=== PATIENT | male | born 1960 | race Caucasian/White ===

== ENCOUNTER 2020-10-21 21:08 | Inpatient (IN) ==
[2020-10-21] MEDS ORDERED: dexAMETHasone**PF** 10 MG/ML VIAL IV ONE (21:43)
[2020-10-21] MEDS ORDERED: ALBUTEROL HFA 8 GM INHALER INH ONE (21:43)
[2020-10-21] MEDS ORDERED: SODIUM CHLORIDE 0.9% 1000ML 1,000 ML IV SCH (21:45)
[2020-10-21 22:00] LABS: Basophils # (auto) 0.01 K/uL (0-0.2); Basophils % (auto) 0.2 %; Eosinophils # (auto) 0.01 K/uL (0-0.5); Eosinophils % (auto) 0.2 %; Hematocrit (blood only) 45.5 % (42-52); Hemoglobin 16.3 g/dL (14.0-18.0); Lymphocytes # (auto) 0.58 K/uL (1.2-3.4); Lymphocytes % (auto) 9.5 %; Mean Corpuscular Hemoglobin 32.1 pg (25-34); Mean Corpuscular Hgb Conc 35.8 g/dL (32-36); Mean Corpuscular Volume 89.6 fL (80-100); Mean Platelet Volume 10.1 fL (7.4-10.4); Monocytes # (auto) 0.65 K/uL (0.11-0.59); Monocytes % (auto) 10.7 %; Neutrophils # (auto) 4.84 K/uL (1.4-6.5); Neutrophils % (auto) 79.4 %; Platelet Count 178 K/uL (130-400); RDW Coefficient of Variation 12.5 % (11.5-14.5); RDW Standard Deviation 41.4 fL (36.4-46.3); Red Blood Count 5.08 M/uL (4.7-6.1); White Blood Count 6.09 K/uL (4.8-10.8)
[2020-10-21 22:11] LABS: Alanine Aminotransferase 40 U/L (12-78); Albumin Level 3.2 gm/dl (3.4-5.0); Aspartate Aminotransferase 27 U/L (15-37); BUN Creatinine Ratio 15.5 (10-20); Blood Urea Nitrogen 13 mg/dl (7-18); Calcium 8.2 mg/dl (8.5-10.1); Carbon Dioxide 29 mmol/L (21-32); Chloride 98 mmol/L (98-107); Creatinine Clr Calc Pharmacy 95.3 ml/min; Est GFR (African American) 109.2; Est GFR (Non-African American) 94.3; Glucose 96 mg/dl (70-99); Magnesium 2.2 mg/dl (1.8-2.4); Potassium 3.8 mmol/L (3.5-5.1); Sodium 133 mmol/L (136-145)
[2020-10-21 22:12] LABS: INR 1.1 (0.9-1.1); Partial Thromboplastin Ratio 1.2; Partial Thromboplastin Time 30.8 Seconds (21.0-31.0); Prothrombin Time 10.7 Seconds (9.0-12.0)
[2020-10-21 22:16] LABS: Albumin Globulin Ratio 0.8 (0.9-2); Alkaline Phosphatase 79 U/L (45-117); Bilirubin,Total 0.7 mg/dl (0.2-1); Globulin 4.2 gm/dl (2.5-4.0); Total Protein 7.4 gm/dl (6.4-8.2); Troponin I < 0.015 ng/ml (0-0.045)
[2020-10-21 22:38] LABS: Appearance Urine Clear (Clear); Bacteria Urine Automated Negative (Negative); Bilirubin Urine Negative (Negative); Blood Urine Negative (Negative); Color Urine Dark Yellow; Glucose Urine UA Negative (Negative); Ketones Urine 1+ (Negative); Leukocyte Esterase Urine Negative (Negative); Nitrite Urine Negative (Negative); Protein Urine 1+ (Negative); RBC Urine Automated 0-4 /hpf (0-4); Specific Gravity Urine 1.021 (1.000-1.030); Urobilinogen Urine Positive (Negative)
[2020-10-21 22:38] LABS: Influenza A virus by PCR Negative (Neg); Influenza B virus by PCR Negative (Neg); RSV by PCR Negative (Neg)
[2020-10-21 22:43] LABS: SARS CoV2 RNA(COVID-19) InHosp POSITIVE (Negative)
--- NOTE | 2020-10-22 00:51 | Emergency Department Note ---
History of Present Illness General Chief complaint: Respiratory Problems Stated complaint: RESP. DIFFICULTY Time Seen by Provider: 10/21/20 21:23 History of Present Illness This 60 yo presents to the ER complaining of flulike illness with difficulty breathing who was exposed to Covid for the past 2 weeks Location: Generalized Quality: Hard to breathe Severity: Moderate Duration: Past few days Timing: Started 2 weeks ago Context: Patient had a hard time breathing and came in Modifying factors: better with rest; worse with activity Patient states he has not been to a doctor since he was 35 years old. No known medical problems. He has not received the Covid vaccine. His spouse does have Covid. He has been sick for 2 weeks. Patient denies chest pain, loss of taste or smell, abdominal pain, vomiting, diarrhea. Home Medications Medication Instructions Recorded Confirmed Type [id number] 1 tab PO DIRECTED PRN 10/21/20 10/21/20 History [Pamela-Firth Plus Day-Night] acetaminophen [Tylenol Extra 1,000 mg PO Q6H PRN 10/21/20 10/21/20 History Strength] chlorpheniramine-acetaminophen 1 tab PO Q6H PRN 10/21/20 10/21/20 History [Coricidin] Allergies Allergy/AdvReac Type Severity Reaction Status Date / Time No Known Allergies Allergy Verified 10/21/20 22:21 Past Med/Surg History Medical History No acute medical problems Surgical History No pertinent past surgical history Social History Smoking Status: Never smoker Preferred Language: Bangladeshi Feels Safe at Home: Yes Review of Systems A total of 10 systems reviewed and were otherwise negative Physical Exam Vital Signs Vital Signs - 24 hr 10/21/20 21:15 10/21/20 21:16 10/21/20 21:18 Temperature 37.3 C Temperature Source Oral Pulse Rate 78 7 L 78 Pulse Rate from SpO2 Sensor 77 79 Pulse Rhythm Regular Respiratory Rate 22 20 24 Respiratory Effort / Characteristics Non-Labored Respiratory Depth Normal Blood Pressure 140/84 140/84 Blood Pressure Mean 102 102 Blood Pressure Position Lying Pulse Oximetry 92 92 93 Oxygen Delivery Method Nasal Cannula Room Air Nasal Cannula Oxygen Flow Rate 3 3 Sepsis Recent Fever Within 48 Hours Yes Sepsis New/Unexplained Change in Mental Status N/A Sepsis Action Taken by Nursing No Action Required Oxygen Flow Rate - Titration Pulse Oximetry Post Tiitration 10/21/20 21:30 10/21/20 21:31 10/21/20 21:49 Temperature Temperature Source Pulse Rate 75 71 Pulse Rate from SpO2 Sensor 75 72 Pulse Rhythm Respiratory Rate 22 22 Respiratory Effort / Characteristics Spontaneous Respiratory Depth Blood Pressure 140/83 Blood Pressure Mean 102 Blood Pressure Position Pulse Oximetry 91 92 Oxygen Delivery Method Nasal Cannula Nasal Cannula Room Air Oxygen Flow Rate 3 3 88 Sepsis Recent Fever Within 48 Hours Sepsis New/Unexplained Change in Mental Status Sepsis Action Taken by Nursing Oxygen Flow Rate - Titration 3 Pulse Oximetry Post Tiitration 95 10/21/20 21:54 10/21/20 22:00 10/21/20 22:01 Temperature Temperature Source Pulse Rate 76 72 Pulse Rate from SpO2 Sensor 76 72 Pulse Rhythm Respiratory Rate 20 20 Respiratory Effort / Characteristics Non-Labored Spontaneous Respiratory Depth Blood Pressure 136/39 L Blood Pressure Mean 71 Blood Pressure Position Pulse Oximetry 93 94 94 Oxygen Delivery Method Nasal Cannula Nasal Cannula Nasal Cannula Oxygen Flow Rate 3 3 3 Sepsis Recent Fever Within 48 Hours Sepsis New/Unexplained Change in Mental Status Sepsis Action Taken by Nursing Oxygen Flow Rate - Titration Pulse Oximetry Post Tiitration 10/21/20 22:30 10/21/20 22:31 10/21/20 22:41 Temperature Temperature Source Pulse Rate 71 70 70 Pulse Rate from SpO2 Sensor 71 70 Pulse Rhythm Regular Respiratory Rate 32 H 33 H 20 Respiratory Effort / Characteristics Non-Labored Spontaneous Respiratory Depth Blood Pressure 129/79 Blood Pressure Mean 95 Blood Pressure Position Pulse Oximetry 96 97 96 Oxygen Delivery Method Nasal Cannula Oxygen Flow Rate 3 Sepsis Recent Fever Within 48 Hours Sepsis New/Unexplained Change in Mental Status Sepsis Action Taken by Nursing Oxygen Flow Rate - Titration Pulse Oximetry Post Tiitration 10/21/20 23:02 10/21/20 23:30 Temperature Temperature Source Pulse Rate 76 71 Pulse Rate from SpO2 Sensor 76 71 Pulse Rhythm Respiratory Rate 28 H 24 Respiratory Effort / Characteristics Respiratory Depth Blood Pressure 142/81 H 124/61 Blood Pressure Mean 101 82 Blood Pressure Position Pulse Oximetry 98 93 Oxygen Delivery Method Nasal Cannula Nasal Cannula Oxygen Flow Rate 3 Sepsis Recent Fever Within 48 Hours Sepsis New/Unexplained Change in Mental Status Sepsis Action Taken by Nursing Oxygen Flow Rate - Titration Pulse Oximetry Post Tiitration VITALS: Vitals are noted on the nurse's note and reviewed by myself. Vital signs stable. GENERAL: White male working to breathe ill-appearing O2 sats in the mid 80s while speaking to me on room air SKIN: The skin was without rashes, erythema, edema, or bruising. There is no tenting of the skin. Capillary reflex less than 2 seconds. HEAD: Normocephalic atraumatic. EARS: External auditory canals clear, tympanic membranes pearly murphy without erythema or effusion bilaterally. EYES: Pupils equal round and reactive to light and accommodation. Conjunctivae without injection, sclerae without icterus. Extraocular movements intact. NOSE: Patent, turbinates without inflammation or discharge. No sinus tenderness. MOUTH: Mucous membranes moist. Pharynx without erythema or exudate. Uvula midline. Airway patent. Tongue does not deviate. NECK: Supple without nuchal rigidity. No lymphadenopathy. No thyromegaly. Cervical spine is nontender. No JVD. HEART: Regular rate and rhythm LUNGS: Diffuse inspiratory and end expiratory wheezes. ABDOMEN: Positive bowel sounds x 4. Normal tympanic percussion. Soft, nontender, without masses or organomegaly. Anthony sign negative. No guarding or rebound tenderness. No CVA tenderness MUSCULOSKELETAL: No muscle atrophy, erythema, or edema noted. NEURO: Patient was alert and oriented to person place and time. Normal sensation to light and sharp touch. No focal neurological deficits. Course Administered Medications Discontinued Medications Albuterol (Albuterol Hfa 8 Gm Inhaler) 2 puffs INH NOW ONE Stop: 10/21/20 21:44 Last Admin: 10/21/20 22:09 Dose: 2 puffs Documented by: [id number] Dexamethasone Sodium Phosphate (DexamethasonePf 10 Mg/Ml Vial) 6 mg IV NOW ONE Stop: 10/21/20 21:44 Last Admin: 10/21/20 22:08 Dose: 6 mg Documented by: [id number] Sodium Chloride (Nss 1000ml) 1,000 mls @ 999 mls/hr IV .Q1H1M JESUS Stop: 10/21/20 22:45 Last Infusion: 10/21/20 23:31 Dose: 0 mls/hr Documented by: [id number] Admin: 10/21/20 22:10 Dose: 999 mls/hr Documented by: [id number] Medical Decision Making Medical Records Attestation: I reviewed the patient's medical records. Home Medications Current Medication List: was personally reviewed by me Laboratory Data Attestation: I reviewed the patient's lab results. Result diagrams: 10/21/20 21:25 10/21/20 21:25 Lab Results 10/21/20 10/21/20 10/21/20 Range/Units 21:25 21:25 21:25 WBC 6.09 (4.8-10.8) K/uL RBC 5.08 (4.7-6.1) M/uL Hgb 16.3 (14.0-18.0) g/dL Hct 45.5 (42-52) % MCV 89.6 (80-100) fL MCH 32.1 (25-34) pg MCHC 35.8 (32-36) g/dL RDW Std Deviation 41.4 (36.4-46.3) fL RDW Coeff of [place] 12.5 (11.5-14.5) % Plt Count 178 (130-400) K/uL MPV 10.1 (7.4-10.4) fL Immature Gran % (Auto) 0.0 % Neut % (Auto) 79.4 % Lymph % (Auto) 9.5 % [place] % (Auto) 10.7 % Eos % (Auto) 0.2 % Baso % (Auto) 0.2 % Neut # (Auto) 4.84 (1.4-6.5) K/uL Lymph # (Auto) 0.58 L (1.2-3.4) K/uL [place] # (Auto) 0.65 H (0.11-0.59) K/uL Eos # (Auto) 0.01 (0-0.5) K/uL Baso # (Auto) 0.01 (0-0.2) K/uL Immature Gran # (Auto) 0.00 (0.00-0.02) K/uL PT 10.7 (9.0-12.0) Seconds INR 1.1 (0.9-1.1) APTT 30.8 (21.0-31.0) Seconds PTT Ratio 1.2 Sodium 133 L (136-145) mmol/L Potassium 3.8 (3.5-5.1) mmol/L Chloride 98 (98-107) mmol/L Carbon Dioxide 29 (21-32) mmol/L Anion Gap 7.0 (3-11) BUN 13 (7-18) mg/dl Creatinine 0.86 (0.6-1.4) mg/dl Est Cr Clr Drug Dosing 95.3 ml/min Est GFR ( Amer) 109.2 Est GFR (Non-Af Amer) 94.3 BUN/Creatinine Ratio 15.5 (10-20) Glucose 96 (70-99) mg/dl Lactate (0.4-2.0) mmol/L Calcium 8.2 L (8.5-10.1) mg/dl Magnesium 2.2 (1.8-2.4) mg/dl Total Bilirubin 0.7 (0.2-1) mg/dl AST 27 (15-37) U/L ALT 40 (12-78) U/L Alkaline Phosphatase 79 (45-117) U/L Troponin I < 0.015 (0-0.045) ng/ml Total Protein 7.4 (6.4-8.2) gm/dl Albumin 3.2 L (3.4-5.0) gm/dl Globulin 4.2 H (2.5-4.0) gm/dl Albumin/Globulin Ratio 0.8 L (0.9-2) Urine Color Urine Appearance (Clear) Urine pH (4.5-7.5) Ur Specific [place] (1.000-1.030) Urine Protein (Negative) Urine Glucose (UA) (Negative) Urine Ketones (Negative) Urine Blood (Negative) Urine Nitrite (Negative) Urine Bilirubin (Negative) Urine Urobilinogen (Negative) Ur Leukocyte Esterase (Negative) Urine WBC (Auto) (0-5) /hpf Urine RBC (Auto) (0-4) /hpf U Hyaline Cast (Auto) (0-5) /lpf U Epithel Cells (Auto) (0-5) /lpf Urine Bacteria (Auto) (Negative) COVID-19 Eval Order SARS-CoV-2 (PCR) (Negative) Influenza Type A (PCR) (Neg) Influenza Type B (PCR) (Neg) RSV (RT-PCR) (Neg) 10/21/20 10/21/20 10/21/20 Range/Units 21:25 21:25 22:25 WBC (4.8-10.8) K/uL RBC (4.7-6.1) M/uL Hgb (14.0-18.0) g/dL Hct (42-52) % MCV (80-100) fL MCH (25-34) pg MCHC (32-36) g/dL RDW Std Deviation (36.4-46.3) fL RDW Coeff of [place] (11.5-14.5) % Plt Count (130-400) K/uL MPV (7.4-10.4) fL Immature Gran % (Auto) % Neut % (Auto) % Lymph % (Auto) % [place] % (Auto) % Eos % (Auto) % Baso % (Auto) % Neut # (Auto) (1.4-6.5) K/uL Lymph # (Auto) (1.2-3.4) K/uL [place] # (Auto) (0.11-0.59) K/uL Eos # (Auto) (0-0.5) K/uL Baso # (Auto) (0-0.2) K/uL Immature Gran # (Auto) (0.00-0.02) K/uL PT (9.0-12.0) Seconds INR (0.9-1.1) APTT (21.0-31.0) Seconds PTT Ratio Sodium (136-145) mmol/L Potassium (3.5-5.1) mmol/L Chloride (98-107) mmol/L Carbon Dioxide (21-32) mmol/L Anion Gap (3-11) BUN (7-18) mg/dl Creatinine (0.6-1.4) mg/dl Est Cr Clr Drug Dosing ml/min Est GFR ( Amer) Est GFR (Non-Af Amer) BUN/Creatinine Ratio (10-20) Glucose (70-99) mg/dl Lactate (0.4-2.0) mmol/L Calcium (8.5-10.1) mg/dl Magnesium (1.8-2.4) mg/dl Total Bilirubin (0.2-1) mg/dl AST (15-37) U/L ALT (12-78) U/L Alkaline Phosphatase (45-117) U/L Troponin I (0-0.045) ng/ml Total Protein (6.4-8.2) gm/dl Albumin (3.4-5.0) gm/dl Globulin (2.5-4.0) gm/dl Albumin/Globulin Ratio (0.9-2) Urine Color Dark Yellow Urine Appearance Clear (Clear) Urine pH 7.0 (4.5-7.5) Ur Specific [place] 1.021 (1.000-1.030) Urine Protein 1+ H (Negative) Urine Glucose (UA) Negative (Negative) Urine Ketones 1+ H (Negative) Urine Blood Negative (Negative) Urine Nitrite Negative (Negative) Urine Bilirubin Negative (Negative) Urine Urobilinogen Positive H (Negative) Ur Leukocyte Esterase Negative (Negative) Urine WBC (Auto) 1-5 (0-5) /hpf Urine RBC (Auto) 0-4 (0-4) /hpf U Hyaline Cast (Auto) 1-5 (0-5) /lpf U Epithel Cells (Auto) 10-20 H (0-5) /lpf Urine Bacteria (Auto) Negative (Negative) COVID-19 Eval Order [facility]Rsv at [facility] SARS-CoV-2 (PCR) POSITIVE A* (Negative) Influenza Type A (PCR) Negative (Neg) Influenza Type B (PCR) Negative (Neg) RSV (RT-PCR) Negative (Neg) 10/21/20 Range/Units 22:50 WBC (4.8-10.8) K/uL RBC (4.7-6.1) M/uL Hgb (14.0-18.0) g/dL Hct (42-52) % MCV (80-100) fL MCH (25-34) pg MCHC (32-36) g/dL RDW Std Deviation (36.4-46.3) fL RDW Coeff of [place] (11.5-14.5) % Plt Count (130-400) K/uL MPV (7.4-10.4) fL Immature Gran % (Auto) % Neut % (Auto) % Lymph % (Auto) % [place] % (Auto) % Eos % (Auto) % Baso % (Auto) % Neut # (Auto) (1.4-6.5) K/uL Lymph # (Auto) (1.2-3.4) K/uL [place] # (Auto) (0.11-0.59) K/uL Eos # (Auto) (0-0.5) K/uL Baso # (Auto) (0-0.2) K/uL Immature Gran # (Auto) (0.00-0.02) K/uL PT (9.0-12.0) Seconds INR (0.9-1.1) APTT (21.0-31.0) Seconds PTT Ratio Sodium (136-145) mmol/L Potassium (3.5-5.1) mmol/L Chloride (98-107) mmol/L Carbon Dioxide (21-32) mmol/L Anion Gap (3-11) BUN (7-18) mg/dl Creatinine (0.6-1.4) mg/dl Est Cr Clr Drug Dosing ml/min Est GFR ( Amer) Est GFR (Non-Af Amer) BUN/Creatinine Ratio (10-20) Glucose (70-99) mg/dl Lactate 1.0 (0.4-2.0) mmol/L Calcium (8.5-10.1) mg/dl Magnesium (1.8-2.4) mg/dl Total Bilirubin (0.2-1) mg/dl AST (15-37) U/L ALT (12-78) U/L Alkaline Phosphatase (45-117) U/L Troponin I (0-0.045) ng/ml Total Protein (6.4-8.2) gm/dl Albumin (3.4-5.0) gm/dl Globulin (2.5-4.0) gm/dl Albumin/Globulin Ratio (0.9-2) Urine Color Urine Appearance (Clear) Urine pH (4.5-7.5) Ur Specific [place] (1.000-1.030) Urine Protein (Negative) Urine Glucose (UA) (Negative) Urine Ketones (Negative) Urine Blood (Negative) Urine Nitrite (Negative) Urine Bilirubin (Negative) Urine Urobilinogen (Negative) Ur Leukocyte Esterase (Negative) Urine WBC (Auto) (0-5) /hpf Urine RBC (Auto) (0-4) /hpf U Hyaline Cast (Auto) (0-5) /lpf U Epithel Cells (Auto) (0-5) /lpf Urine Bacteria (Auto) (Negative) COVID-19 Eval Order SARS-CoV-2 (PCR) (Negative) Influenza Type A (PCR) (Neg) Influenza Type B (PCR) (Neg) RSV (RT-PCR) (Neg) Imaging Data Attestation: I personally reviewed and interpreted this imaging study as follows: MDM Narrative Prior records/ancillary studies reviewed. Triage Nursing notes reviewed. Additional history obtained from family. The patient's history was concerning for fever. Differential diagnosis: Etiologies such as viral syndrome, otitis, pharyngitis, pneumonia, influenza, meningitis, urinary tract infection, sepsis, bacteremia, as well as others were entertained. Physical examination: As above ER treatment provided: An order was placed for continuous cardiac monitoring. The monitor shows a rate of 60-100 with a sinus rhythm. Decadron, albuterol, IV fluids On reassessment the patient felt better. Diagnostics interpreted by me: ECG: Ordered for dyspnea EKG: Normal sinus, normal levels, no acute ST-T wave changes. Impression normal sinus rhythm interpreted by myself I think arrhythmia is unlikely. EKG shows normal sinus rhythm with no interval abnormalities such as QT prolongation or WPW. There are no findings to suggest Brugada syndrome. Cardiac monitoring in the emergency department reveals no tac hycardic or bradycardic dysrhythmia. Hypertrophic cardiomyopathy was considered but there are no clear historical elements pointing toward this. EKG is not suggestive. The QRS voltage is not extremely large and there are no suggestive Q waves. The labs revealed positive Covid, blood cultures pending No leukocytosis Imaging studies: Chest x-ray concerning for multifocal pneumonia per my interpretation Consultation: A consultation was placed with Dr. Bowers. The case was discussed and diagnostics were reviewed. The patient was evaluated in the ER for further treatment. This appears to be consistent with Covid pneumonia who is hypoxic. Patient was placed on oxygen and O2 sats came up. He is agreeable treatment plan of admission. He was started on Decadron. He is 2 weeks into his illness.. By the evaluation outlined above emergent etiologies such as otitis, pharyngitis, meningitis, urinary tract infection, sepsis, bacteremia, as well as others were deemed relatively unlikely. The pt informed about the findings as listed above. All questions were answered and pleased with the treatment. The chart was completed utilizing [email or web address] voice recognition software. Grammatical errors, random word insertions, pronoun errors, and incomplete sentences are an occassional consequence of this system due to software limitations, ambient noise, and hardware issues. Any formal questions or concerns about the content, text, or information contained within the body of this dictation should be directly addressed to the physician it assistant for clarification. Impression & Plan COVID-19, Hypoxemia Discharge Plan Visit Data Chief Complaint: Respiratory Problems Stated Complaint: RESP. DIFFICULTY ED Provider: Pradeep Lr ED Midlevel Provider: Yue Lofton Discharge Problem: COVID-19, Hypoxemia Patient Disposition: Admitted As Inpatient Forms Stand Alone Forms: [facility] Prescriptions Prescriptions: No Action acetaminophen [Tylenol Extra Strength] 500 mg Tablet 1,000 mg PO Q6H PRN (Reason: FEVER/PAIN) RF: 0 Coricidin 2-325 mg Tablet 1 tab PO Q6H PRN (Reason: Cold Symptoms) RF: 0 Pamela-Firth Plus Day-Night 7.8-325 mg(d)/ 6.25-500 mg(nt) Tablet,Effervescent Sequential 1 tab PO DIRECTED PRN (Reason: Cold Symptoms) RF: 0 Referrals Referrals: PCP,NO [Primary Care Provider] -
[2020-10-22] MEDS ORDERED: ENOXAPARIN INJ 60 MG/0.6 ML SYR SQ STA (01:22)
--- NOTE | 2020-10-22 02:40 | History & Physical Report ---
Date of Service October 22, 2020 Assessment & Plan (1) Pneumonia due to COVID-19 virus: Multifocal pneumonia due to COVID-19 virus with hypoxia- Decadron 6 mg IV every morning Ventolin HFA 2 puffs 4 times daily, and every 2 hours as needed Zinc sulfate 220 mg p.o. every morning Vitamin D 5000 international units p.o. daily Azithromycin 500 mg IV daily Guaifenesin extended release 600 mg p.o. twice daily Nasal cannula oxygen, titrate to keep pulse ox 94 to 95% Lovenox 0.5 mg kilogram subcu every [address] angio PE protocol due to initial presentation of severe left lower back pain Present on Admission?: Yes (2) Multifocal pneumonia: See above Present on Admission?: Yes (3) Hypoxemia: See above Present on Admission?: Yes History of Present Illness Chief Complaint: The patient presents to the emergency department with symptoms that began 5 days ago consisting of left-sided lower back pain, and then progressed to a cough and shortness of breath that began about 3 days ago. Primary Care Provider: NO PCP The patient is a 60-year-old male with no significant past medical history who presents with symptoms as noted above. He reports that his daughter came to his house earlier this evening, checked his vital signs and found that his pulse ox was in the 80s, and had him come to the emergency department for assessment. He does have a history of exposure to a family member with Covid about a week ago, and COVID-19 testing in the ED this evening was positive. Chest x-ray showed multifocal pneumonia, and pulse ox upon presentation was 88% on room air. The patient was given Decadron PF 6 mg IV, normal saline 1 L, and an albuterol high flow nebulizer by the ED, and then referred for evaluation for admission to the hospitalist service. Due to his initial symptoms of left lower back pain, I ordered a CT angio PE protocol. Allergies Allergy/AdvReac Type Severity Reaction Status Date / Time No Known Allergies Allergy Verified 10/21/20 22:21 Home Medications Medication Instructions Recorded Confirmed Type PE-DM-ASA/izqwtu-AV-GL-ASA 1 tab PO DIRECTED PRN 10/21/20 10/21/20 History [Pamela-[place] Plus Day-Night] acetaminophen [Tylenol Extra 1,000 mg PO Q6H PRN 10/21/20 10/21/20 History Strength] chlorpheniramine-acetaminophen 1 tab PO Q6H PRN 10/21/20 10/21/20 History [Coricidin] Past Med/Surg History Medical History No acute medical problems Surgical History No pertinent past surgical history Social History Smoking Status: Never smoker Preferred Language: Armenian Feels Safe at Home: Yes Review of Systems Review of Systems: The patient denies chest pain, palpitations, lower extremity swelling, sore throat, fevers, chills, sweats, nausea, vomiting, diarrhea , constipation, abdominal pain, pelvic pain, blood in urine or stool, dysuria, urinary frequency or urgency, lightheadedness, dizziness, headache, memory loss, loss of consciousness, rash, abnormal bruising or bleeding, imbalance, focal or generalized weakness, numbness or tingling in arms or legs, generalized arthralgias or myalgias, neck pain, or night sweats. The review of systems is otherwise negative other than for that already noted above, and at least 10 systems have been reviewed. Physical Exam Physical Exam: The patient is awake, alert and oriented 3, well developed and well nourished, normocephalic and atraumatic, lying in bed and in no acute distress. HEENT--PERRL, EOMI, mucous membranes and oropharynx normal. Neck--supple. No JVD. No bruits. Thyroid normal, trachea midline, no adenopathy. Heart--normal S1 and S2. No murmurs, rubs or gallops. Lungs--coarse breath sounds bilaterally. No respiratory distress, no accessory muscle use. Abdomen--normal bowel sounds and soft. Nontender. Nondistended, no hernias or masses, no organomegaly. Extremities--no cyanosis or clubbing. No edema. Dermatologic--normal skin turgor, normal color, no abnormal lymph nodes, no rash. Neurologic--cranial nerves II through XII grossly intact. Rheumatologic--normal range of motion. Psychiatric--normal affect. Results & Data Results & Data ([facility]) Vital Signs (Past 12 Hours) Vital Signs Temp Pulse Resp BP Pulse Ox 10/22/20 01:58 72 30 H 117/76 92 10/22/20 01:38 68 30 H 129/79 93 10/22/20 01:00 73 32 H 110/63 93 10/22/20 00:30 70 35 H 129/73 91 10/22/20 00:00 70 36 H 128/68 92 10/21/20 23:30 71 24 124/61 93 10/21/20 23:02 76 28 H 142/81 H 98 10/21/20 22:41 70 20 96 10/21/20 22:31 70 33 H 97 10/21/20 22:30 71 32 H 129/79 96 10/21/20 22:01 72 20 136/39 L 94 10/21/20 22:00 76 20 94 10/21/20 21:54 93 10/21/20 21:31 71 22 140/83 92 10/21/20 21:30 75 22 91 10/21/20 21:18 78 24 93 10/21/20 21:16 99.1 F 7 L 20 140/84 92 10/21/20 21:15 78 22 140/84 92 Laboratory Results Laboratory Results WBC 6.09 K/uL (4.8-10.8) 10/21/20 21:25 RBC 5.08 M/uL (4.7-6.1) 10/21/20 21:25 Hgb 16.3 g/dL (14.0-18.0) 10/21/20 21:25 Hct 45.5 % (42-52) 10/21/20 21:25 MCV 89.6 fL (80-100) 10/21/20 21:25 MCH 32.1 pg (25-34) 10/21/20 21:25 MCHC 35.8 g/dL (32-36) 10/21/20 21:25 RDW Std Deviation 41.4 fL (36.4-46.3) 10/21/20 21:25 RDW Coeff of [place] 12.5 % (11.5-14.5) 10/21/20 21:25 Plt Count 178 K/uL (130-400) 10/21/20 21:25 MPV 10.1 fL (7.4-10.4) 10/21/20 21:25 Immature Gran % (Auto) 0.0 % 10/21/20: Neut % (Auto) 79.4 % 10/21/20: Lymph % (Auto) 9.5 % 10/21/20: [place] % (Auto) 10.7 % 10/21/20: Eos % (Auto) 0.2 % 10/21/20: Baso % (Auto) 0.2 % 10/21/20: Neut # (Auto) 4.84 K/uL (1.4-6.5) 10/21/20: Lymph # (Auto) 0.58 K/uL (1.2-3.4) L 10/21/20: [place] # (Auto) 0.65 K/uL (0.11-0.59) H 10/21/20: Eos # (Auto) 0.01 K/uL (0-0.5) 10/21/20: Baso # (Auto) 0.01 K/uL (0-0.2) 10/21/20: Immature Gran # (Auto) 0.00 K/uL (0.00-0.02) 10/21/20: PT 10.7 Seconds (9.0-12.0) 10/21/20:25 INR 1.1 (0.9-1.1) 10/21/20: APTT 30.8 Seconds (21.0-31.0) 10/21/20: PTT Ratio 1.2 10/21/20 21: Sodium 133 mmol/L (136-145) L 10/21/20:25 Potassium 3.8 mmol/L (3.5-5.1) 10/21/20: Chloride 98 mmol/L (98-107) 10/21/20: Carbon Dioxide 29 mmol/L (21-32) 10/21/20 21:25 Anion Gap 7.0 (3-11) 10/21/20 21:25 BUN 13 mg/dl (7-18) 10/21/20: Creatinine 0.86 mg/dl (0.6-1.4) 10/21/20 21:25 Est Cr Clr Drug Dosing 95.3 ml/min 10/21/20 21:25 Est GFR ( Amer) 109.2 10/21/20 21:25 Est GFR (Non-Af Amer) 94.3 10/21/20 21:25 BUN/Creatinine Ratio 15.5 (10-20) 10/21/20 21: Glucose 96 mg/dl (70-99) 10/21/20 21: Lactate 1.0 mmol/L (0.4-2.0) 10/21/20 22:50 Calcium 8.2 mg/dl (8.5-10.1) L 10/21/20: Magnesium 2.2 mg/dl (1.8-2.4) 10/21/20: Total Bilirubin 0.7 mg/dl (0.2-1) 10/21/20:25 AST 27 U/L (15-37) 10/21/20: ALT 40 U/L (12-78) 10/21/20: Alkaline Phosphatase 79 U/L (45-117) 10/21/20: Troponin I < 0.015 ng/ml (0-0.045) 10/21/20: Total Protein 7.4 gm/dl (6.4-8.2) 10/21/20: Albumin 3.2 gm/dl (3.4-5.0) L 10/21/20: Globulin 4.2 gm/dl (2.5-4.0) H 10/21/20 21:25 Albumin/Globulin Ratio 0.8 (0.9-2) L 10/21/20 21:25 Urine Color Dark Yellow 10/21/20 22:25 Urine Appearance Clear (Clear) 10/21/20 22: Urine pH 7.0 (4.5-7.5) 10/21/20: Ur Specific [place] 1.021 (1.000-1.030) 10/21/20 22: Urine Protein 1+ (Negative) H 10/21/20 22:25 Urine Glucose (UA) Negative (Negative) 10/21/20: Urine Ketones 1+ (Negative) H 10/21/20 22: Urine Blood Negative (Negative) 10/21/20 22:25 Urine Nitrite Negative (Negative) 10/21/20 22:25 Urine Bilirubin Negative (Negative) 10/21/20 22:25 Urine Urobilinogen Positive (Negative) H 10/21/20 22:25 Ur Leukocyte Esterase Negative (Negative) 10/21/20 22:25 Urine WBC (Auto) 1-5 /hpf (0-5) 10/21/20 22:25 Urine RBC (Auto) 0-4 /hpf (0-4) 10/21/20 22:25 U Hyaline Cast (Auto) 1-5 /lpf (0-5) 10/21/20 22:25 U Epithel Cells (Auto) 10-20 /lpf (0-5) H 10/21/20 22:25 Urine Bacteria (Auto) Negative (Negative) 10/21/20 22:25 COVID-19 Eval Order [facility] at [facility] 10/21/20 21:25 SARS-CoV-2 (PCR) POSITIVE (Negative) A* 10/21/20 21:25 Influenza Type A (PCR) Negative (Neg) 10/21/20 21:25 Influenza Type B (PCR) Negative (Neg) 10/21/20 21:25 RSV (RT-PCR) Negative (Neg) 10/21/20 21:25 Code Status & VTE Plan Code Status Full code VTE Prophylaxis Plan VTE Prophylaxis will be ordered: Yes PG Care Time/CCT Total # of Minutes Spent Total Time Spent with Patient: Total time spent is greater than 50% in coordination of care (as documented) at patient's floor/unit and/or counseling p atient: Coding Level of Care Code 93130 Initial Inpt Care Lvl 2 Diagnoses Pneumonia due to COVID-19 virus U07.1; J12.82 Multifocal pneumonia J18.9 Hypoxemia R09.02
[2020-10-22] MEDS ORDERED: OPTIRAY 320 125ml IV ONE (02:50)
[2020-10-22] MEDS ORDERED: ONDANSETRON INJ 2 MG/ML 2 ML VIAL IV PRN (03:02)
[2020-10-22] MEDS ORDERED: ACETAMINOPHEN 325 MG TAB PO PRN (03:02)
[2020-10-22] MEDS ORDERED: ALBUTEROL HFA 8 GM INHALER INH PRN (03:06)
[2020-10-22] MEDS ORDERED: NSS + 20MEQ KCL 20 MEQ/1,000 ML BAG IV SCH (03:30)
[2020-10-22] MEDS: AZITHROMYCIN 500 MG in DEXTROSE 5% 250 ML IV SCH (03:50)
[2020-10-22] MEDS ORDERED: ALBUTEROL HFA 8 GM INHALER INH SCH (07:00)
[2020-10-22 07:54] LABS: Immature Granulocytes # (auto) 0.01 K/uL (0.00-0.02); Immature Granulocytes % (auto) 0.5 %; Lymphocytes % (auto) 13.8 %; Mean Corpuscular Hemoglobin 32.1 pg (25-34); Mean Corpuscular Hgb Conc 35.7 g/dL (32-36); Mean Corpuscular Volume 89.7 fL (80-100); Mean Platelet Volume 10.2 fL (7.4-10.4); Monocytes # (auto) 0.16 K/uL (0.11-0.59); Monocytes % (auto) 7.4 %; Neutrophils % (auto) 78.3 %; Platelet Count 158 K/uL (130-400); RDW Coefficient of Variation 12.7 % (11.5-14.5); RDW Standard Deviation 41.6 fL (36.4-46.3); Red Blood Count 4.68 M/uL (4.7-6.1); White Blood Count 2.17 K/uL (4.8-10.8)
--- NOTE | 2020-10-22 08:01 | XRay Report ---
XR chest 1V portable HISTORY: SEPSIS COMPARISON: None. FINDINGS: Multifocal bilateral airspace opacities most pronounced within the periphery. This favors a viral pneumonia. No pneumothorax. No pleural effusions. There are low lung volumes. The cardiac silh ouette is mildly enlarged. IMPRESSION: Multifocal bilateral airspace opacities consistent with a viral pneumonia. ACT 112: Negative or not required by law. Electronically signed by: Darek Francois M.D. 10/22/2020 8:00 AM
--- NOTE | 2020-10-22 08:08 | CT Scan Report ---
CT angio chest PE protocol CT DOSE: 455.78 mGy.cm HISTORY: 60 years-old Male with PE, COVID-19+. Acute chest pain with shortness of breath. TECHNIQUE: Multiple CTA images of the chest were obtained after the intravenous administration of 109 ml Optiray 320. Coronal and sagittal MIPS were obtained from the axial data set and were submitted for review. All measurements were obtained according to NASCET criteria. A dose lowering technique w as utilized adhering to the principles of ALARA. COMPARISON: Chest radiograph of same day FINDINGS: CTA: Mild cardiomegaly. There is no pericardial effusion. Unremarkable thoracic aorta with patency of the imaged great vessels. Suboptimal evaluation of the pulmonary artery segmental and subsegmental branch es secondary to respiratory motion artifact. No filling defects identified to suggest thromboembolic disease. CT CHEST: Unremarkable thyroid. No adenopathy. Trace pleural effusions. Extensive multilobar peripheral predomi nant groundglass opacities. Mild linear bibasilar consolidation is also present. No suspicious pulmon fred nodules. Central airways are patent. No pneumoperitoneum. Mild wall thickening of the distal esophagus with tiny hiatal hernia. Unremarkab le soft tissues. No acute fracture. IMPRESSION: 1. No pulmonary emboli. 2. Extensive multilobar peripheral predominant distribution of groundglass opacities compatible with multifocal viral pneumonia. 3. Trace pleural effusions. 4. Tiny hiatal hernia. ACT 112: Negative or not required by law. The above report was generated using voice recognition software. It may contain grammatical, syntax o r spelling errors. Electronically signed by: Shorty Gann M.D. 10/22/2020 8:07 AM
[2020-10-22 08:30] LABS: Albumin Level 2.7 gm/dl (3.4-5.0); BUN Creatinine Ratio 20.2 (10-20); Calcium 8.3 mg/dl (8.5-10.1); Creatinine Clr Calc Pharmacy 117.3 ml/min; Est GFR (African American) 119.6; Est GFR (Non-African American) 103.2; Potassium 4.2 mmol/L (3.5-5.1)
[2020-10-22 08:32] LABS: Albumin Globulin Ratio 0.7 (0.9-2); Bilirubin,Total 0.5 mg/dl (0.2-1); Globulin 3.9 gm/dl (2.5-4.0); Total Protein 6.6 gm/dl (6.4-8.2)
[2020-10-22] MEDS: dexAMETHasone 6 MG in SYRINGE 0 ML IV SCH (08:34)
[2020-10-22] MEDS: ZINC SULFATE 220 MG CAPSULE PO SCH (08:35)
[2020-10-22] MEDS: CHOLECALCIFEROL 1,000 UNITS 25 MCG TAB PO SCH (08:35)
[2020-10-22] MEDS: guaiFENesin 600 MG TABCR PO SCH ×2 (08:35→20:20)
[2020-10-22] MEDS ORDERED: REMDESIVIR 200 MG in SODIUM CHLORIDE 0.9% 210 ML IV STA (10:14)
--- NOTE | 2020-10-22 10:16 | History & Physical Bridge Note ---
Date of Service October 22, 2020 History & Physical Bridge Note I have examined the patient, reviewed the History & Physical and in the interval since the performance of the History & Physical I have noted the following changes of clinical significance: patient doing well, breathing comfortably on 2L he has been sick for about 7 days, discussed adding Remdesivir, he agreed, will start today discussed that he might be ready to go home in a few days he ate breakfast, will stop fluids after today updated his
[2020-10-22] MEDS: SODIUM CHLORIDE 0.9% 10ML FLUSH IV SCH (13:13)
[2020-10-22] MEDS: ENOXAPARIN INJ 60 MG/0.6 ML SYR SQ SCH (17:07)
--- NOTE | 2020-10-23 05:25 | Electrocardiogram Report ---
Test Reason : Blood Pressure : / mmHG Vent. Rate : 076 BPM Atrial Rate : 076 BPM P-R Int : 188 ms QRS Dur : 068 ms QT Int : 364 ms P-R-T Axes : 035 -13 001 degrees QTc Int : 409 ms Normal sinus rhythm Normal ECG No previous ECGs available Confirmed by Kwadwo Laureano ([id number]) on 10/23/2020 5:25:14 AM Referred By: REFERRED SELF Confirmed By:Kwadwo Laureano
[2020-10-23] MEDS: AZITHROMYCIN 500 MG in DEXTROSE 5% 250 ML IV SCH (05:38)
[2020-10-23] MEDS: ENOXAPARIN INJ 60 MG/0.6 ML SYR SQ SCH (05:39)
[2020-10-23 06:53] LABS: Hematocrit (blood only) 40.7 % (42-52); Hemoglobin 14.5 g/dL (14.0-18.0); Immature Granulocytes # (auto) 0.01 K/uL (0.00-0.02); Immature Granulocytes % (auto) 0.2 %; Lymphocytes # (auto) 0.48 K/uL (1.2-3.4); Lymphocytes % (auto) 8.4 %; Mean Corpuscular Hemoglobin 31.8 pg (25-34); Mean Corpuscular Hgb Conc 35.6 g/dL (32-36); Mean Corpuscular Volume 89.3 fL (80-100); Mean Platelet Volume 10.6 fL (7.4-10.4); Monocytes % (auto) 12.3 %; Neutrophils # (auto) 4.52 K/uL (1.4-6.5); Neutrophils % (auto) 79.1 %; Platelet Count 200 K/uL (130-400); RDW Coefficient of Variation 12.7 % (11.5-14.5); RDW Standard Deviation 41.5 fL (36.4-46.3); Red Blood Count 4.56 M/uL (4.7-6.1); White Blood Count 5.71 K/uL (4.8-10.8)
[2020-10-23 07:24] LABS: Albumin Level 2.7 gm/dl (3.4-5.0); Calcium 8.7 mg/dl (8.5-10.1); Creatinine Clr Calc Pharmacy 115.1 ml/min; Est GFR (African American) 118.9; Est GFR (Non-African American) 102.6; Potassium 4.1 mmol/L (3.5-5.1)
[2020-10-23 07:27] LABS: Albumin Globulin Ratio 0.8 (0.9-2); Bilirubin,Total 0.5 mg/dl (0.2-1); Globulin 3.5 gm/dl (2.5-4.0); Total Protein 6.2 gm/dl (6.4-8.2)
[2020-10-23] MEDS: CHOLECALCIFEROL 1,000 UNITS 25 MCG TAB PO SCH (08:13)
[2020-10-23] MEDS: guaiFENesin 600 MG TABCR PO SCH ×2 (08:13→20:36)
[2020-10-23] MEDS: dexAMETHasone 6 MG in SYRINGE 0 ML IV SCH (08:13)
[2020-10-23] MEDS: ZINC SULFATE 220 MG CAPSULE PO SCH (08:14)
--- NOTE | 2020-10-23 09:51 | Hospitalist Progress Note ---
Date of Service October 23, 2020 Assessment & Plan (1) Pneumonia due to COVID-19 virus: Multifocal pneumonia due to COVID-19 virus with hypoxia- Decadron 6 mg IV every morning, day 2 Remdesivir IV day 2 Ventolin HFA 2 puffs 4 times daily, and every 2 hours as needed Zinc sulfate 220 mg p.o. every morning Vitamin D 5000 international units p.o. daily Azithromycin 500 mg IV daily, day 2 Lovenox 0.5 mg kilogram subcu every [address] angio PE protocol -- no PE discussed laying prone / on side as much as he can since he is sleeping this morning discussed getting down to room air is ticket home, he will work on it (2) Multifocal pneumonia: due to COVID, possible secondary bacterial infection continue dexamethasone, Remdesivir, Zithromax (3) Hypoxemia: acute hypoxic respiratory failure no increased work of breathing discussed importance of laying prone several times a day Admission and Anticipated Discharge Date Admission Date: October 22, 2020 Subjective patient doing fine this morning, eating well, breathing comfortably on 2L he is sleeping so I told him to sleep on his side or stomach to help improve oxygenation no fever/chills, labs reviewed, stable vitals stable discussed that his ticket out of here is to get down to room air, lay prone, sit OOB in chair Review of Systems Review of Systems: All systems reviewed & are unremarkable except as noted in Subjective Physical Exam Constitutional: WD/WN, vitals as above Neck: trachea midline, no thyromegaly Respiratory: normal respiratory effort, lungs clear to auscultation Cardiovascular: RRR, no murmur, no edema Gastrointestinal (Abdomen): normal bowel sounds, soft, nontender, no hepatosplenomegaly Musculoskeletal: no cyanosis or clubbing, extremities motor strength 5/5 Skin: no rashes, warm and dry Neurologic: patellar DTR's 2+ bilat, sensation intact and PERRL, EOMI, accommodation nl, no face palsy, no dysarthria Psychiatric: A+Ox3, euthymic affect Lymphatic: no cervical or axillary lymphadenopathy Results & Data Results & Data ([facility]) Vital Signs (Past 12 Hours) Vital Signs Temp Pulse Pulse Resp BP Pulse Ox 10/23/20 07:51 36.4 C L 61 18 126/82 93 10/23/20 04:10 127/69 92 10/23/20 03:51 36.6 C 64 22 134/81 90 10/22/20 23:59 66 10/22/20 23:24 36.5 C 66 18 154/93 H 94 Laboratory Results Laboratory Results - last 24 hr 10/23/20 10/23/20 05:27 05:27 WBC 5.71 RBC 4.56 L Hgb 14.5 Hct 40.7 L MCV 89.3 MCH 31.8 MCHC 35.6 RDW Std Deviation 41.5 RDW Coeff of [place] 12.7 Plt Count 200 MPV 10.6 H Immature Gran % (Auto) 0.2 Neut % (Auto) 79.1 Lymph % (Auto) 8.4 [place] % (Auto) 12.3 Eos % (Auto) 0.0 Baso % (Auto) 0.0 Neut # (Auto) 4.52 Lymph # (Auto) 0.48 L [place] # (Auto) 0.70 H Eos # (Auto) 0.00 Baso # (Auto) 0.00 Immature Gran # (Auto) 0.01 Sodium 137 Potassium 4.1 Chloride 105 Carbon Dioxide 25 Anion Gap 7.0 BUN 23 H D Creatinine 0.70 Est Cr Clr Drug Dosing 115.1 Est GFR ( Amer) 118.9 Est GFR (Non-Af Amer) 102.6 BUN/Creatinine Ratio 33.0 H Glucose 119 H Calcium 8.7 Total Bilirubin 0.5 AST 22 ALT 38 Alkaline Phosphatase 61 Total Protein 6.2 L Albumin 2.7 L Globulin 3.5 Albumin/Globulin Ratio 0.8 L Medications Administered Current Inpatient Medications Acetaminophen (Acetaminophen 325 Mg Tab) 650 mg PO Q4H PRN PRN Reason: Pain or Fever Stop: 11/21/20 03:01 Albuterol (Albuterol Hfa 8 Gm Inhaler) 2 puffs INH Q2H PRN PRN Reason: Shortness Of Breath Stop: 11/21/20 03:05 Enoxaparin Sodium (Enoxaparin Inj 60 Mg/0.6 Ml Syr) 45 mg SQ Q12H [facility] Stop: 11/21/20 15:59 Last Admin: 10/23/20 05:39 Dose: 45 mg Documented by: Guaifenesin (Guaifenesin 600 Mg Tabcr) 600 mg PO Q12 JESUS Stop: 11/21/20 08:59 Last Admin: 10/23/20 08:13 Dose: 600 mg Documented by: Guaifenesin/Codeine Phosphate (Guaifenesin/Codeine 200mg/20mg 10ml Udc) 10 ml PO Q6H PRN PRN Reason: Cough Stop: 11/21/20 10:13 Last Admin: 10/22/20 20:21 Dose: 10 ml Documented by: Azithromycin 500 mg/ Dextrose 255 mls @ 125 mls/hr IV Q24H JESUS Stop: 10/29/20 03:29 Last Infusion: 10/23/20 09:00 Dose: Infused Documented by: Dexamethasone 6 mg/ Syringe 1.5 mls @ 1 mls/min IV Q24H [facility] Stop: 11/21/20 08:59 Last Admin: 10/23/20 08:13 Dose: 1 mls/min Documented by: Remdesivir 100 mg/ Sodium (Chloride) 250 mls @ 250 mls/hr IV DAILY@1200 JESUS; Protocol Stop: 10/26/20 12:59 Ondansetron HCl (Ondansetron Inj 2 Mg/Ml 2 Ml Vial) 4 mg IV Q6H PRN PRN Reason: Nausea Stop: 11/21/20 03:01 Sodium Chloride (Sodium Chloride 0.9% 10ml Flush) 30 ml IV Q24H [facility] Stop: 10/26/20 10:16 Last Admin: 10/22/20 13:13 Dose: 30 ml Documented by: Vitamin D (Cholecalciferol 1,000 Units 25 Mcg Tab) 5,000 units PO [facility] Stop: 11/21/20 08:59 Last Admin: 10/23/20 08:13 Dose: 5,000 units Documented by: Zinc Sulfate (Zinc Sulfate 220 Mg Capsule) [facility] Stop: 11/21/20 08:59 Last Admin: 10/23/20 08:14 Dose: 220 mg Documented by: PG Care Time/CCT Total # of Minutes Spent Total Time Spent with Patient: Total time spent is greater than 50% in coordination of care (as documented) at patient's floor/unit and/or counseling patient: Coding Level of Care Code 37501 Subseq Hosp Care Lvl 2 Diagnoses Pneumonia due to COVID-19 virus U07.1; J12.82 Multifocal pneumonia J18.9 Hypoxemia R09.02
[2020-10-23] MEDS: REMDESIVIR 100 MG in SODIUM CHLORIDE 0.9% 230 ML IV SCH (11:39)
[2020-10-23] MEDS: SODIUM CHLORIDE 0.9% 10ML FLUSH IV SCH (12:53)
[2020-10-23] MEDS: ENOXAPARIN INJ 40 MG/0.4 ML SYR SQ SCH (17:07)
[2020-10-24] MEDS: ENOXAPARIN INJ 40 MG/0.4 ML SYR SQ SCH (06:00)
[2020-10-24] MEDS: AZITHROMYCIN 500 MG in DEXTROSE 5% 250 ML IV SCH (06:00)
[2020-10-24 07:34] LABS: Basophils # (auto) 0.01 K/uL (0-0.2); Basophils % (auto) 0.2 %; Hematocrit (blood only) 39.9 % (42-52); Hemoglobin 14.2 g/dL (14.0-18.0); Immature Granulocytes # (auto) 0.01 K/uL (0.00-0.02); Immature Granulocytes % (auto) 0.2 %; Lymphocytes # (auto) 0.58 K/uL (1.2-3.4); Lymphocytes % (auto) 9.6 %; Mean Corpuscular Hemoglobin 31.9 pg (25-34); Mean Corpuscular Hgb Conc 35.6 g/dL (32-36); Mean Corpuscular Volume 89.7 fL (80-100); Mean Platelet Volume 9.7 fL (7.4-10.4); Monocytes # (auto) 0.67 K/uL (0.11-0.59); Monocytes % (auto) 11.1 %; Neutrophils # (auto) 4.78 K/uL (1.4-6.5); Neutrophils % (auto) 78.9 %; Platelet Count 262 K/uL (130-400); RDW Coefficient of Variation 12.7 % (11.5-14.5); RDW Standard Deviation 41.6 fL (36.4-46.3); Red Blood Count 4.45 M/uL (4.7-6.1); White Blood Count 6.05 K/uL (4.8-10.8)
[2020-10-24 08:00] LABS: Albumin Level 2.8 gm/dl (3.4-5.0); BUN Creatinine Ratio 35.1 (10-20); Calcium 8.4 mg/dl (8.5-10.1); Creatinine Clr Calc Pharmacy 120.2 ml/min; Est GFR (Non-African American) 104.4
[2020-10-24 08:02] LABS: Albumin Globulin Ratio 0.8 (0.9-2); Bilirubin,Total 0.6 mg/dl (0.2-1); Globulin 3.6 gm/dl (2.5-4.0); Total Protein 6.4 gm/dl (6.4-8.2)
[2020-10-24] MEDS: dexAMETHasone 6 MG in SYRINGE 0 ML IV SCH (08:35)
[2020-10-24] MEDS: guaiFENesin 600 MG TABCR PO SCH (08:36)
[2020-10-24] MEDS: ZINC SULFATE 220 MG CAPSULE PO SCH (08:36)
[2020-10-24] MEDS: CHOLECALCIFEROL 1,000 UNITS 25 MCG TAB PO SCH (08:36)
--- NOTE | 2020-10-24 11:11 | Discharge Summary ---
Date of Service October 24, 2020 Admission HPI Per Admitting Provider The patient is a 60-year-old male with no significant past medical history who presents with symptoms as noted above. He reports that his daughter came to his house earlier this evening, checked his vital signs and found that his pulse ox was in the 80s, and had him come to the emergency department for assessment. He does have a history of exposure to a family member with Covid about a week ago, and COVID-19 testing in the ED this evening was positive. Chest x-ray showed multifocal pneumonia, and pulse ox upon presentation was 88% on room air. The patient was given Decadron PF 6 mg IV, normal saline 1 L, and an albuterol high flow nebulizer by the ED, and then referred for evaluation for admission to the hospitalist service. Due to his initial symptoms of left lower back pain, I ordered a CT angio PE protocol. Principal Diagnosis COVID 19 pneumonia with acute hypoxic respiratory failure Discharge Exam Constitutional WD/WN, vitals as above Neck trachea midline, no thyromegaly Respiratory normal respiratory effort, lungs clear to auscultation Cardiovascular RRR, no murmur, no edema Gastrointestinal (Abdomen) normal bowel sounds, soft, nontender, no hepatosplenomegaly Musculoskeletal no cyanosis or clubbing, extremities motor strength 5/5 Skin no rashes, warm and dry Neurologic patellar DTR's 2+ bilat, sensation intact and PERRL, EOMI, accommodation nl, no face palsy, no dysarthria Psychiatric A+Ox3, euthymic affect Lymphatic no cervical or axillary lymphadenopathy Discharge Data Allergies Allergy/AdvReac Type Severity Reaction Status Date / Time No Known Allergies Allergy Verified 10/21/20 22:21 Consultations 10/21/20 23:04 ED Decision to Admit Stat Ordered Studies 10/22/20 01:15 CT angio chest PE protocol Urgent Hospital Course (1) Pneumonia due to COVID-19 virus: Multifocal pneumonia due to COVID-19 virus with hypoxia- Decadron 6 mg IV every morning, day 3 Remdesivir IV day 3 Ventolin HFA 2 puffs 4 times daily, and every 2 hours as needed Zinc sulfate 220 mg p.o. every morning Vitamin D 5000 international units p.o. daily Azithromycin 500 mg IV daily, day 3 Lovenox 0.5 mg kilogram subcu every [address] angio PE protocol -- no PE titrated down to room air today, no distress ambulated with respiratory therapy, no oxygen needed on exertion, he walked over 400ft, never felt short of breath discharge to home on 6 more days of dexamethasone aspirin 81mg daily get rest, stay well nourished and well hydrated stay in isolation through the weekend, can return to work on 10/29/20 (2) Multifocal pneumonia: due to COVID, possible secondary bacterial infection treated with dexamethasone, Remdesivir, Zithromax can finish course of dexamethasone on discharge (3) Hypoxemia: acute hypoxic respiratory failure no increased work of breathing discussed importance of laying prone several times a day down to room air today, feels great no desaturations noted on 2 step testing, no need for home oxygen Total Time Total Time Spent Total Time Spent (In Minutes): 35 Total Time Includes: Examination of the Patient, Discharge Planning and Medication Reconciliation Discharge Plan Discharge Items Patient Disposition: Home - Self-Care Reason For Visit: COVID-19 PNEUMONIA WITH HYPOXIA Discharge Diagnosis: COVID 19 pneumonia, acute hypoxia Condition on Discharge: Good Goals: stay well nourished, well hydrated, well rested stay in quarantine through the weekend complete course of dexamethasone Activity: Resume your previous activity Driving/Machine Use: No limitations Weightbearing: Full weightbearing Non-emergency contact: Primary Care Provider Call non-emergency contact if: you have any medication questions Follow-up/Referrals: PCP,NO [Primary Care Provider] - Diet: Regular Addtl Attending Provider Instructions: Medications: - DEXAMETHASONE: 6mg daily for 6 more days, start taking tomorrow morning - ZINC: 220mg daily, over the counter, for immune support - VITAMIN D: 5000 units daily, over the counter, for immune support - ASPIRIN: 81mg daily, studies have shown that it can improve outcomes COVID 19 pneumonia responded well to dexamethasone and Remdesivir down to room air today both at rest and when walking, you never desaturated which is a good sign will complete 6 more days of dexamethasone at home continue on aspirin 81mg daily, Vitamin D, Zinc for immune support can use Codeine PRN for cough suppression stay in isolation through the weekend but then you can leave home with mask on stay well nourished and well hydrated and get rest Pending Studies at Discharge: No Stand-Alone Forms: My [facility], Work/School Release (Inpt), Smoking Cessation Medications and DC Order Prescriptions: New codeine-guaifenesin 10-100 mg/5 mL Liquid 10 ml PO Q6H PRN (Reason: cough) 10 Days Qty: 120 RF: 0 cholecalciferol (vitamin D3) 25 mcg (1,000 unit) Capsule 5,000 unit PO QAM 10 Days Qty: 10 RF: 0 zinc sulfate [Orazinc] 50 mg zinc (220 mg) Capsule 220 mg PO QAM 10 Days Qty: 44 RF: 0 dexamethasone 4 mg tablet 6 mg PO DAILY 6 Days Qty: 9 RF: 0 aspirin 81 mg tablet,delayed release (DR/EC) 81 mg PO DAILY Qty: 30 RF: 0 Continued acetaminophen [Tylenol Extra Strength] 500 mg Tablet 1,000 mg PO Q6H PRN (Reason: FEVER/PAIN) RF: 0 Pamela-[place] Plus Day-Night 7.8-325 mg(d)/ 6.25-500 mg(nt) Tablet,Effervescent Sequential 1 tab PO DIRECTED PRN (Reason: Cold Symptoms) RF: 0 Discontinued Coricidin 2-325 mg Tablet 1 tab PO Q6H PRN (Reason: Cold Symptoms) RF: 0 Discharge Orders: Discharge Order (Routine); Ordered 10/24/20 Ordered By: Miki Francis/Other Patient Handouts: COVID-19 Home Care, Proning COVID-19, Vitamin and Mineral Supplements, Preventing the Spread of ..., Zinc Salts tablets or capsules, Codeine Guaifenesin oral solution or syrup, Aspirin ASA chewable tablets, Dexamethasone tablets Admission Data Admit Date/Time: 10/22/20 01:10 Attending Provider: Miki Masterson Admit Provider: Huseyin Molina Primary Care Provider: PCP,NO Other Providers: Huseyin Molina Other Interventions: Discharge Summary Assessment (RN) Last Done: 10/24/20 11:38 Coding Level of Care Code D/C Day Management >30 mins Diagnoses Pneumonia due to COVID-19 virus U07.1; J12.82 Multifocal pneumonia J18.9 Hypoxemia R09.02
[2020-10-24] MEDS: REMDESIVIR 100 MG in SODIUM CHLORIDE 0.9% 230 ML IV SCH (11:16)
[2020-10-24] MEDS: SODIUM CHLORIDE 0.9% 10ML FLUSH IV SCH (12:15)
== END 2020-10-24 17:27 | disposition home or self-care (01) | DRG 177 ==
LOC: ED 21:08 → 2S 10-22 01:10 → SUATTDRO 10-22 01:10 → 2S 10-22 02:13

== ENCOUNTER 2023-02-21 16:06 | Inpatient (IN) ==
--- NOTE | 2023-02-21 16:25 | Emergency Department Note ---
History of Present Illness General Chief complaint: GI Assessment Stated complaint: DECREASED APPETITE, WEIGHT LOSS, ABDOMINAL PAIN Time Seen by Provider: 02/21/23 16:23 History of Present Illness Maximum Pain Intensity: 4 This 62-year-old male patient presents to the emergency department with his for evaluation of abdominal pain, decreased appetite, and weight loss. He states that he had a prostate biopsy done on January [address] Magaña. The biopsy came back negative for prostate cancer per patient. He had a lot of pain in his prostate right after the biopsy that then moved to his abdomen. Ever since that time he has had decreased appetite, diarrhea, and fatigue. He followed up with urology and was started on doxycycline BID x 30 days. However, the symptoms seemed to get worse on the doxycycline and he stopped it after 1 week because of the side effects. Continues to complain of intermittent abdominal pain and weight loss of 18 pounds in the past month. He continues with urinary frequency due to his enlarged prostate and takes Flomax without improvement of the symptoms. His blood pressure has also been higher recently as well. He is not on any medications for his blood pressure. Rates his abdominal discomfort as 4/10. He has had SOB intermittently since the symptoms started as well. Had COVID in 2020 and had trouble breathing since that time, but worse recently. No chest pain. No fevers or chills. Denies cough or URI symptoms. Initially thought the symptoms were secondary to acid reflux b/c he gets indigestion frequency. Tried Pepcid with no improvement. BMs have been alternating between constipation and softer stools recently. Denies hematochezia, melena, hematuria, hemoptysis, or hematemesis. Has had intermittent pain in the right testicle, but Dr. Magaña did not find any abnormalities on exam. Home Medications Medication Instructions Recorded Confirmed Type tamsulosin 0.4 mg capsule 0.4 mg PO DAILY #30 caps 05/16/22 02/21/23 Rx doxycycline hyclate 100 mg tablet 100 mg PO BID #30 tabs 01/29/23 02/21/23 Rx ondansetron 4 mg disintegrating 4 mg PO Q6H PRN Nausea 02/21/23 02/21/23 History tablet Allergies Allergy/AdvReac Type Severity Reaction Status Date / Time No Known Allergies Allergy Verified 02/21/23 19:39 Past Med/Surg History Medical History Enlarged prostate Hypoxemia No acute medical problems Surgical History H/O prostate biopsy No pertinent past surgical history Family History Other Cancer Social History Smoking Status: Never smoker Hx Alcohol Use: Yes Alcohol type: beer Hx Substance Use: No Preferred Language: [place] Communication Ability: Effective [employer] Required: No Beliefs That Will Affect Care: None Current Living Situation: Spouse Feels Safe at Home: Yes Safety Concerns: Feels Safe At This Time Assistive Devices: None Review of Systems See HPI for pertinent positives & negatives. Physical Exam Vital Signs Vital Signs - 24 hr 02/21/23 16:09 02/21/23 17:50 02/21/23 18:08 Temperature 36.6 C Temperature Source Temporal Artery Scan Pulse Rate 97 H Pulse Rate [Finger] 87 Respiratory Rate 18 18 Respiratory Effort / Characteristics Non-Labored Spontaneous Respiratory Depth Normal Blood Pressure 172/107 H Blood Pressure [Left Arm] Blood Pressure Mean 128 Blood Pressure Mean [Left Arm] Pulse Oximetry 94 94 95 Oxygen Delivery Method Room Air Room Air Sepsis Recent Fever Within 48 Hours No Sepsis New/Unexplained Change in Mental Status No Sepsis Action Taken by Nursing No Action Required 02/21/23 19:18 02/21/23 19:57 Temperature Temperature Source Pulse Rate Pulse Rate [Finger] 84 83 Respiratory Rate 18 18 Respiratory Effort / Characteristics Non-Labored Non-Labored Respiratory Depth Normal Normal Blood Pressure Blood Pressure [Left Arm] 156/101 H 159/92 H Blood Pressure Mean Blood Pressure Mean [Left Arm] 119 114 Pulse Oximetry 96 95 Oxygen Delivery Method Room Air Room Air Sepsis Recent Fever Within 48 Hours Sepsis New/Unexplained Change in Mental Status Sepsis Action Taken by Nursing VITALS: Vitals are noted on the nurse's note and reviewed by myself. GENERAL: Non toxic, no acute distress, non-diaphoretic. SKIN: Capillary refill <2 sec. EYES: PERRLA. EOMI. Conjunctivae without injection, sclerae without icterus. NOSE: Patent without discharge. MOUTH: Mucous membranes moist. Uvula midline. Airway patent. NECK: Supple without nuchal rigidity. HEART: Regular rate and rhythm without murmurs gallops or rubs. LUNGS: Clear to auscultation bilaterally without wheezes, rales or rhonchi. No retractions or accessory muscle use. ABDOMEN: Positive bowel sounds x 4. Normal tympanic percussion. Soft, diffusely tender to palpation. No obvious masses or organomegaly. Anthony sign negative. No CVA tenderness. No guarding or rebound tenderness. No focal RLQ or LLQ tenderness. : Permission to perform the exam. Technology Lab Teacher present in the room for the exam. Testes are descended bilaterally. The patient is mildly tender to palpation over the right testicle. No tenderness to palpation of the left testicle. No obvious masses or lesions felt. Normal cremasteric reflex. No penile lesions. No obvious hernias appreciated. RECTAL EXAM: Permission to perform the exam. Technology Lab Teacher present for exam. No external lesions noted. No external hemorrhoids. Normal sphincter tone. Internal hemorrhoids are not enlarged. Prostate is enlarged, but no obvious masses or lesions felt. No masses, tears, fistulas, fissures, abscess, or other lesion noted. Stool is brown and Hemoccult negative. MUSCULOSKELETAL: No gross musculoskeletal defects. NEURO: Patient was alert and oriented to person place and time. No focal neurological deficits. Course Administered Medications Enoxaparin Sodium (Enoxaparin Inj 40 Mg/0.4 Ml Syr) 40 mg SQ Q24H JSEUS Stop: 03/23/23 20:59 Last Admin: 02/21/23 23:40 Dose: 40 mg Documented By: DANI Lactated Ringer's (Lr) 1,000 mls @ 100 mls/hr IV .Q10H JESUS Stop: 02/22/23 18:31 Last Admin: 02/21/23 23:16 Dose: 100 mls/hr Documented By: DANI Discontinued Medications Sodium Chloride (Nss 1000ml) 1,000 mls @ 999 mls/hr IV .Q1H1M STA Stop: 02/21/23 17:40 Last Infusion: 02/21/23 17:59 Dose: 0 mls/hr Documented By: Admin: 02/21/23 16:56 Dose: 999 mls/hr Documented By: LOUISE Famotidine (Pepcid 20mg Iv Push) 20 mg in 5 mls @ 2.5 mls/min IV NOW STA Stop: 02/21/23 16:41 Last Admin: 02/21/23 16:56 Dose: 2.5 mls/min Documented By: LOUISE Pantoprazole Sodium 40 mg/ (Syringe) 10 mls @ 5 mls/min IV NOW ONE Stop: 02/21/23 16:41 Last Admin: 02/21/23 18:40 Dose: 5 mls/min Documented By: LOUISE Sodium Chloride (Nss 1000ml) 1,000 mls @ 999 mls/hr IV .Q1H1M ONE Stop: 02/21/23 18:55 Last Infusion: 02/21/23 19:16 Dose: 0 mls/hr Documented By: Admin: 02/21/23 18:40 Dose: 999 mls/hr Documented By: LOUISE Ceftriaxone Sodium (Rocephin) 2,000 mg in 70 mls @ 140 mls/hr IV NOW STA Stop: 02/21/23 20:03 Last Infusion: 02/21/23 20:42 Dose: 0 mls/hr Documented By: Admin: 02/21/23 19:55 Dose: 140 mls/hr Documented By: BO Medical Decision Making Differential Diagnosis Differential diagnosis includes malignancy, VT, PE, pneumonia, hepatitis, pancreatitis, cholecystitis, cholelithiasis, appendicitis, kidney stone, pyelonephritis, UTI, gastritis, gastroenteritis, mesenteric adenitis, obstruction, constipation, hernia, abdominal abscess, perforation, diverticulitis, IBD, ischemic colitis, abdominal aortic aneurysm, testicular torsion, prostatitis, or others. Laboratory Data Attestation: I reviewed the patient's lab results. 02/21/23 16:52 02/21/23 16:52 Lab Results 02/21/23 02/21/23 02/21/23 Range/Units 16:52 16:52 16:52 WBC 7.96 (4.8-10.8) K/ul RBC 4.19 L (4.70-6.10) M/uL Hgb 13.0 L (14.0-18.0) g/dl Hct 37.5 L (42.0-52.0) % MCV 89.5 (80.0-100.0) fL MCH 31.0 (25.0-34.0) pg MCHC 34.7 (32.0-36.0) g/dL RDW Std Deviation 40.4 (36.4-46.3) fL RDW Coeff of [place] 12.4 (11.5-14.5) % Plt Count 273 (130-400) K/uL MPV 9.6 (9.4-12.4) fL Immature Gran % (Auto) 0.4 % Neut % (Auto) 70.0 % Lymph % (Auto) 8.8 % [place] % (Auto) 13.9 % Eos % (Auto) 5.3 % Baso % (Auto) 1.6 % Neut # (Auto) 5.57 (1.40-6.50) K/uL Lymph # (Auto) 0.70 L (1.2-3.4) K/uL [place] # (Auto) 1.11 H (0.11-0.59) K/uL Eos # (Auto) 0.42 (0-0.50) K/uL Baso # (Auto) 0.13 (0-0.2) K/uL Immature Gran # (Auto) 0.03 (0.01-0.20) K/uL Sodium 136 (136-145) mmol/L Potassium 3.7 (3.5-5.1) mmol/L Chloride 97 L (98-107) mmol/L Carbon Dioxide 23 (21-32) mmol/L Anion Gap 16 H (3-11) BUN 31 H (6-23) mg/dl Creatinine 1.84 H (0.6-1.4) mg/dl Est Cr Clr Drug Dosing 42.0 ml/min Est GFR ( Amer) 44.5 ml/min Est GFR (Non-Af Amer) 38.4 ml/min BUN/Creatinine Ratio 16.8 (10-20) Glucose 117 H (70-99(Fasting)) mg/dl Calcium 9.6 (8.6-10.3) mg/dl Phosphorus 4.2 (2.5-4.9) mg/dl Magnesium 1.7 (1.7-2.4) mg/dl Total Bilirubin 0.7 (0.2-1.0) mg/dl AST 39 (13-39) U/L ALT 36 (7-52) U/L Alkaline Phosphatase 172 H (34-104) U/L Troponin I High Sens 11.2 (0-20) pg/ml Total Protein 6.8 (6.0-8.3) gm/dl Albumin 4.0 (3.4-5.0) gm/dl Globulin 2.8 (2.5-4.0) gm/dl Albumin/Globulin Ratio 1.4 (0.9-2) Lipase 30 (11-82) U/L TSH 2.988 (0.300-4.500) uIu/ml Urine Color Urine Appearance (Clear) Urine pH (4.5-7.5) Ur Specific [place] (1.000-1.030) Urine Protein (Negative) Urine Glucose (UA) (Negative) Urine Ketones (Negative) Urine Blood (Negative) Urine Nitrite (Negative) Urine Bilirubin (Negative) Urine Urobilinogen (Negative) Ur Leukocyte Esterase (Negative) Urine WBC (Auto) (0-5) /hpf Urine RBC (Auto) (0-4) /hpf U Hyaline Cast (Auto) (0-5) /lpf U Epithel Cells (Auto) (0-5) /lpf Urine Bacteria (Auto) (Negative) Urine Yeast Lyme Disease IgG Ab (Negative) Lyme Disease IgM Ab (Negative) SARS-CoV-2, RNA, NAAT (NEGATIVE) 02/21/23 02/21/23 02/21/23 Range/Units 16:52 16:52 16:52 WBC (4.8-10.8) K/ul RBC (4.70-6.10) M/uL Hgb (14.0-18.0) g/dl Hct (42.0-52.0) % MCV (80.0-100.0) fL MCH (25.0-34.0) pg MCHC (32.0-36.0) g/dL RDW Std Deviation (36.4-46.3) fL RDW Coeff of [place] (11.5-14.5) % Plt Count (130-400) K/uL MPV (9.4-12.4) fL Immature Gran % (Auto) % Neut % (Auto) % Lymph % (Auto) % [place] % (Auto) % Eos % (Auto) % Baso % (Auto) % Neut # (Auto) (1.40-6.50) K/uL Lymph # (Auto) (1.2-3.4) K/uL [place] # (Auto) (0.11-0.59) K/uL Eos # (Auto) (0-0.50) K/uL Baso # (Auto) (0-0.2) K/uL Immature Gran # (Auto) (0.01-0.20) K/uL Sodium (136-145) mmol/L Potassium (3.5-5.1) mmol/L Chloride (98-107) mmol/L Carbon Dioxide (21-32) mmol/L Anion Gap (3-11) BUN (6-23) mg/dl Creatinine (0.6-1.4) mg/dl Est Cr Clr Drug Dosing ml/min Est GFR ( Amer) ml/min Est GFR (Non-Af Amer) ml/min BUN/Creatinine Ratio (10-20) Glucose (70-99(Fasting)) mg/dl Calcium (8.6-10.3) mg/dl Phosphorus (2.5-4.9) mg/dl Magnesium (1.7-2.4) mg/dl Total Bilirubin (0.2-1.0) mg/dl AST (13-39) U/L ALT (7-52) U/L Alkaline Phosphatase (34-104) U/L Troponin I High Sens (0-20) pg/ml Total Protein (6.0-8.3) gm/dl Albumin (3.4-5.0) gm/dl Globulin (2.5-4.0) gm/dl Albumin/Globulin Ratio (0.9-2) Lipase (11-82) U/L TSH (0.300-4.500) uIu/ml Urine Color Yellow Urine Appearance Cloudy A (Clear) Urine pH 5.0 (4.5-7.5) Ur Specific [place] 1.013 (1.000-1.030) Urine Protein 1+ H (Negative) Urine Glucose (UA) Negative (Negative) Urine Ketones Negative (Negative) Urine Blood 3+ H (Negative) Urine Nitrite Negative (Negative) Urine Bilirubin Negative (Negative) Urine Urobilinogen Negative (Negative) Ur Leukocyte Esterase 2+ H (Negative) Urine WBC (Auto) >30 H (0-5) /hpf Urine RBC (Auto) 0-4 (0-4) /hpf U Hyaline Cast (Auto) 1-5 (0-5) /lpf U Epithel Cells (Auto) >30 H (0-5) /lpf Urine Bacteria (Auto) Negative (Negative) Urine Yeast Not Reportable Lyme Disease IgG Ab Negative (Negative) Lyme Disease IgM Ab Negative (Negative) SARS-CoV-2, RNA, NAAT NEGATIVE (NEGATIVE) Imaging Data Radiologist's Impression: Abdomen/Pelvis CT 02/21/23 16:[address] WITH CONTRAST, ABDOMEN AND PELVIS CT WITH INTRAVENOUS CONTRAST CT DOSE: 1936.19 mGy.cm HISTORY: SOB, weight loss TECHNIQUE: Multiaxial CT images of the chest, abdomen, and pelvis were performed following the intravenous administration of contrast. A dose lowering technique was utilized adhering to the principles of ALARA. COMPARISON: Chest CTA 10/22/2020. FINDINGS: Chest CT: The central airways are patent. No pneumothorax. There is a small right pleural effusion. Patchy groundglass densities within the right lower lobe posteriorly favor dependent change/atelectasis. There is a 5 mm groundglass nodule within the left lower lobe on image 139. There is a 7 mm groundglass nodule within the right upper lobe on image 122. There is a punctate calcified granuloma within the right lower lobe. No suspicious lytic are blastic osseous lesions. The thyroid gland enhances normally. No mediastinal, hilar, or axillary lymphadenopathy identified. The heart is normal in size. No pericardial effusion. Normal caliber esophagus. No evidence for an aortic dissection. The main pulmonary arteries are patent. There are few mildly enlarged anterior diaphragmatic lymph nodes measuring up to 15 mm. There is mild distal paraesophageal lymphadenopathy measuring up to 13 mm. Abdomen/pelvis CT: No pneumoperitoneum. No pneumatosis. No acute fractures identified. There are 2 punctate sclerotic foci within the right iliac crest measuring up to 3 mm. This is indeterminate but could represent bone islands. Patchy area of sclerosis within the right medial pubic bone measuring 2.5 cm. This is also indeterminate and could represent chronic degenerative change. An osteoblastic metastatic focus is not excluded. There are multiple scattered hypodense lesions seen throughout the liver. Dominant lesion within the right hepatic lobe measures 5 cm. These are consistent with metastatic lesions. The main portal vein is patent. The spleen, adrenal glands, and pancreas unremarkable. There is irregular gallbladder wall thickening likely representing metastatic disease. Trace ascites is noted. Right greater than left urothelial thickening within the ureters most pronounced distally. This is concerning for tumor involvement/metastatic disease. This results in mild bilateral hydronephrosis. There is a slightly delayed right nephrogram. Mild distal paraesophageal and gastrohepatic lymphadenopathy is noted. Normal caliber abdominal aorta. No pelvic lymphadenopathy. Bladder wall thickening is noted. The prostate gland is enlarged. Extensive nodularity within the omentum with areas of peritoneal thickening and trace ascites. This is consistent with peritoneal carcinomatosis. Multiple small scattered soft tissue nodules seen throughout the mesentery consistent with additional sites of peritoneal carcinomatosis. There is necrotic ileocolonic lymphadenopathy consistent with metastatic disease. There is a large soft tissue mass centered at the ileocecal valve which involves the terminal ileum and cecum. This is located within the right lower quadrant and is best seen on image 249. This measures 8.4 x 7.6 cm. There is mild dilatation of the distal ileum measuring up to 3.2 cm. This is suggestive of a developing partial small bowel obstruction secondary to this large mass. IMPRESSION: 1. There is an 8.4 x 7.6 cm soft tissue mass centered at the ileocecal valve which involves both the cecum and terminal ileum. There is extensive metastatic disease within the abdomen and pelvis as described above including peritoneal carcinomatosis and multiple hepatic metastases. Therefore, this could represent lymphoma or a primary colonic malignancy. 2. Urothelial thickening within the bilateral ureters most pronounced on the right. This favors metastatic disease and results in mild bilateral hydronephrosis. 3. Small right pleural effusion. 4. Mild dilatation of the distal ileum suggestive of a low-grade partial small bowel obstruction from the large cecal mass. 5. Patchy area of sclerosis within the right medial pubic bone measuring 2.5 cm. This is indeterminate and could be due to chronic degenerative change. An osteoblastic metastatic focus is not excluded. 6. There are 2 subcentimeter indeterminate groundglass nodules within the lungs with the largest measuring 7 mm. Follow-up recommended to ensure stability. 7. Additional findings as described above. ACT 112: Negative or not required by law. Electronically signed by: Darek Francois M.D. 02/21/2023 7:[address] 02/21/23 16:[address] WITH CONTRAST, ABDOMEN AND PELVIS CT WITH INTRAVENOUS CONTRAST CT DOSE: 1936.19 mGy.cm HISTORY: SOB, weight loss TECHNIQUE: Multiaxial CT images of the chest, abdomen, and pelvis were performed following the intravenous administration of contrast. A dose lowering technique was utilized adhering to the principles of ALARA. COMPARISON: Chest CTA 10/22/2020. FINDINGS: Chest CT: The central airways are patent. No pneumothorax. There is a small right pleural effusion. Patchy groundglass densities within the right lower lobe posteriorly favor dependent change/atelectasis. There is a 5 mm groundglass nodule within the left lower lobe on image 139. There is a 7 mm groundglass nod ule within the right upper lobe on image 122. There is a punctate calcified granuloma within the right lower lobe. No suspicious lytic are blastic osseous lesions. The thyroid gland enhances normally. No mediastinal, hilar, or axillary lymphadenopathy identified. The heart is normal in size. No pericardial effusion. Normal caliber esophagus. No evidence for an aortic dissection. The main pulmonary arteries are patent. There are few mildly enlarged anterior diaphragmatic lymph nodes measuring up to 15 mm. There is mild distal paraesophageal lymphadenopathy measuring up to 13 mm. Abdomen/pelvis CT: No pneumoperitoneum. No pneumatosis. No acute fractures identified. There are 2 punctate sclerotic foci within the right iliac crest measuring up to 3 mm. This is indeterminate but could represent bone islands. Patchy area of sclerosis within the right medial pubic bone measuring 2.5 cm. This is also indeterminate and could represent chronic degenerative change. An osteoblastic metastatic focus is not excluded. There are multiple scattered hypodense lesions seen throughout the liver. Dominant lesion within the right hepatic lobe measures 5 cm. These are consistent with metastatic lesions. The main portal vein is patent. The spleen, adrenal glands, and pancreas u nremarkable. There is irregular gallbladder wall thickening likely representing metastatic disease. Trace ascites is noted. Right greater than left urothelial thickening within the ureters most pronounced distally. This is concerning for tumor involvement/metastatic disease. This results in mild bilateral hydronephrosis. There is a slightly delayed right nephrogram. Mild distal paraesophageal and gastrohepatic lymphadenopathy is noted. Normal caliber abdominal aorta. No pelvic lymphadenopathy. Bladder wall thickening is noted. The prostate gland is enlarged. Extensive nodularity within the omentum with areas of peritoneal thickening and trace ascites. This is consistent with peritoneal carcinomatosis. Multiple small scattered soft tissue nodules seen throughout the mesentery consistent with additional sites of peritoneal carcinomatosis. There is necrotic ileocolonic lymphadenopathy consistent with metastatic disease. There is a large soft tissue mass centered at the ileocecal valve which involves the terminal ileum and cecum. This is located within the right lower quadrant and is best seen on image 249. This measures 8.4 x 7.6 cm. There is mild dilatation of the distal ileum measuring up to 3.2 cm. This is suggestive of a developing partial small bowel obstruction secondary to this large mass. IMPRESSION: 1. There is an 8.4 x 7.6 cm soft tissue mass centered at the ileocecal valve which involves both the cecum and terminal ileum. There is extensive metastatic disease within the abdomen and pelvis as described above including peritoneal carcinomatosis and multiple hepatic metastases. Therefore, this could represent lymphoma or a primary colonic malignancy. 2. Urothelial thickening within the bilateral ureters most pronounced on the right. This favors metastatic disease and results in mild bilateral hydron ephrosis. 3. Small right pleural effusion. 4. Mild dilatation of the distal ileum suggestive of a low-grade partial small bowel obstruction from the large cecal mass. 5. Patchy area of sclerosis within the right medial pubic bone measuring 2.5 cm. This is indeterminate and could be due to chronic degenerative change. An osteoblastic metastatic focus is not excluded. 6. There are 2 subcentimeter indeterminate groundglass nodules within the lungs with the largest measuring 7 mm. Follow-up recommended to ensure stability. 7. Additional findings as described above. ACT 112: Negative or not required by law. Electronically signed by: Darek Francois M.D. 02/21/2023 7:05 PM Scrotum Ultrasound 02/21/23 16:40 TESTICULAR ULTRASOUND HISTORY: right testicular pain COMPARISON: None. FINDINGS: Right testis: 39 x 25 x 23 mm. A 3 mm epididymal head cyst. There are no intratesticular masses. Normal color flow. No hydrocele.. Left testis: 43 x 29 x 22 mm. There are no intratesticular masses. Normal color flow. No hydrocele. The epididymis is unremarkable. Small fat-containing reducible left inguinal hernia. IMPRESSION: 1. Normal bilateral testes. 2. Small fat-containing reducible left inguinal hernia. ACT 112: Negative or not required by law. Electronically signed by: Darek Francois M.D. 02/21/2023 7:10 PM MDM Narrative I examined the patient. An IV lock was placed and labs were drawn. He was given Protonix 40 mg IV and Pepcid 20 mg IV with resolution of his indigestion. He declined any additional medication for pain while in the emergency department. He was given 1 L normal saline solution bolus initially followed by a second 1 L normal saline solution bolus after the CT scans with contrast. The patient was given Rocephin 2 g IV pending the urine culture. EKG was interpreted by myself as normal sinus rhythm at 88 bpm with inverted T waves, but no other acute ST or T wave changes. Continuous media monitor: Order was placed for continuous media monitor. Patient was placed on the media monitor and continuous pulse ox. Patient was noted to be in normal sinus rhythm at an initial rate of 80 bpm per my interpretation. White blood cell count is normal at 7.96. Hemoglobin low at 13. Platelet count is normal. The patient appears to have an acute kidney injury with creatinine of 1.84 and BUN 31. Anion gap elevated at 16. Glucose 117. Alk phos 172. Remainder of the CMP was normal. Magnesium and phosphorus were normal. TSH was normal. Lyme disease IgM and IgG were negative. Urinalysis is concerning for UTI. Urine culture is pending. Imaging studies were reviewed by myself and read by radiology as above. Scrotal ultrasound with normal bilateral testes, but does show a small fat-containing reducible left inguinal hernia. CT scan of the chest shows 2 subcentimeter indeterminate groundglass nodules within the lungs with the largest measuring 7 mm. Follow-up is recommended to ensure stability. There is an 8.4 x 7.6 cm soft tissue mass centered at the ileocecal valve which involves both the cecum and terminal ileum. There is extensive metastatic disease within the abdomen and pelvis as described above including peritoneal carcinomatosis and multiple hepatic metastases. Therefore, this could represent lymphoma or a primary colonic malignancy. Urothelial thickening within the bilateral ureters most pro nounced on the right. This favors metastatic disease and results in mild bilateral hydronephrosis. Small right pleural effusion. Mild dilatation of the distal ileum suggestive of a low-grade partial small bowel obstruction from the large cecal mass. Patchy area of sclerosis within the right medial pubic bone measuring 2.5 cm. This is indeterminate and could be due to chronic degenerative change. An osteoblastic metastatic focus is not excluded. The patient's CT scans are consistent with what appears to be new malignancies and metastases (possible lymphoma vs GI primary) with a large cecal mass causing a partial small bowel obstruction. The patient has been moving his bowels recently, but no bowel movement today. He has been having alternating constipation and diarrhea recently. No nausea or vomiting. Therefore, NG tube is not needed at this time. The patient states that he had a negative Cologuard test in July. No known family history of colon cancer. I spoke with the patient, the patient's , and the patient's niece in the room in regards to the concerning CT scan findings. I explained the extent of the disease that was seen on the CT scans, but that we could not make any definitive diagnosis without further work-up and biopsies. I answered all questions and the patient and his family voiced understanding at this time. I had a meaningful discussion about this patient with Dr. Mcknight who agrees with my assessment and the treatment plan. I spoke with Dr. Recio of general surgery who felt the patient could be admitted locally for the partial small bow el obstruction with additional work-up of his other abnormal findings. I spoke with the on-call hospitalist who agreed to admit the patient for further management. Please refer to their dictation for further details. The patient's care was transferred in stable condition. Impression & Plan SBO (small bowel obstruction), TABATHA (acute kidney injury), Mass of colon, Peritoneal carcinomatosis, Cecum mass Discharge Plan Visit Data Chief Complaint: GI Assessment Stated Complaint: DECREASED APPETITE, WEIGHT LOSS, ABDOMINAL PAIN ED Provider: Sheldon Mcknight ED Midlevel Provider: Lindy Joe Discharge Problem: SBO (small bowel obstruction), TABATHA (acute kidney injury), Mass of colon, Peritoneal carcinomatosis, Cecum mass Patient Disposition: Admitted As Inpatient Condition: Good Discharge Instructions Interventions: ED Discharge Assessment Last Done: 02/21/23 21:54
[2023-02-21] MEDS ORDERED: PANTOprazole 40 MG in SYRINGE 0 ML IV ONE (16:40)
[2023-02-21] MEDS ORDERED: FAMOTIDINE 20MG IV PUSH 20 MG/5 ML SYR IV STA (16:40)
[2023-02-21] MEDS ORDERED: SODIUM CHLORIDE 0.9% 1000ML 1,000 ML IV STA (16:40)
[2023-02-21 17:15] LABS: Appearance Urine Cloudy (Clear); Bacteria Urine Automated Negative (Negative); Bilirubin Urine Negative (Negative); Blood Urine 3+ (Negative); Color Urine Yellow; Epithelial Cell Urine Auto >30 /lpf (0-5); Glucose Urine UA Negative (Negative); Ketones Urine Negative (Negative); Leukocyte Esterase Urine 2+ (Negative); Nitrite Urine Negative (Negative); Protein Urine 1+ (Negative); Specific Gravity Urine 1.013 (1.000-1.030); Urobilinogen Urine Negative (Negative); WBC Urine Automated >30 /hpf (0-5)
[2023-02-21 17:25] LABS: Basophils # (auto) 0.13 K/uL (0-0.2); Basophils % (auto) 1.6 %; Eosinophils # (auto) 0.42 K/uL (0-0.50); Eosinophils % (auto) 5.3 %; Hematocrit (blood only) 37.5 % (42.0-52.0); Immature Granulocytes # (auto) 0.03 K/uL (0.01-0.20); Immature Granulocytes % (auto) 0.4 %; Lymphocytes % (auto) 8.8 %; Mean Corpuscular Hgb Conc 34.7 g/dL (32.0-36.0); Mean Corpuscular Volume 89.5 fL (80.0-100.0); Mean Platelet Volume 9.6 fL (9.4-12.4); Monocytes # (auto) 1.11 K/uL (0.11-0.59); Monocytes % (auto) 13.9 %; Neutrophils # (auto) 5.57 K/uL (1.40-6.50); Platelet Count 273 K/uL (130-400); RDW Coefficient of Variation 12.4 % (11.5-14.5); RDW Standard Deviation 40.4 fL (36.4-46.3); Red Blood Count 4.19 M/uL (4.70-6.10); White Blood Count 7.96 K/ul (4.8-10.8)
[2023-02-21 17:27] LABS: RBC Urine Automated 0-4 /hpf (0-4)
[2023-02-21 17:37] LABS: Albumin Globulin Ratio 1.4 (0.9-2); BUN Creatinine Ratio 16.8 (10-20); Bilirubin,Total 0.7 mg/dl (0.2-1.0); Calcium 9.6 mg/dl (8.6-10.3); Est GFR (African American) 44.5 ml/min; Est GFR (Non-African American) 38.4 ml/min; Globulin 2.8 gm/dl (2.5-4.0); Potassium 3.7 mmol/L (3.5-5.1); Total Protein 6.8 gm/dl (6.0-8.3)
[2023-02-21 17:44] LABS: Troponin I High Sensitivity 11.2 pg/ml (0-20)
[2023-02-21] MEDS ORDERED: SODIUM CHLORIDE 0.9% 1000ML 1,000 ML IV ONE (17:55)
[2023-02-21 17:59] LABS: Lyme Ab IgG w/WB Rflx Negative (Negative); Lyme Ab IgM w/WB Rflx Negative (Negative)
--- NOTE | 2023-02-21 19:07 | CT Scan Report ---
CHEST CT WITH CONTRAST, ABDOMEN AND PELVIS CT WITH INTRAVENOUS CONTRAST CT DOSE: 1936.19 mGy.cm HISTORY: SOB, weight loss TECHNIQUE: Multiaxial CT images of the chest, abdomen, and pelvis were performed following the intrav enous administration of contrast. A dose lowering technique was utilized adhering to the principles of ALARA. COMPARISON: Chest CTA 10/22/2020. FINDINGS: Chest CT: The central airways are patent. No pneumothorax. There is a small right pleural effusion. P atchy groundglass densities within the right lower lobe posteriorly favor dependent change/atelectasi s. There is a 5 mm groundglass nodule within the left lower lobe on image 139. There is a 7 mm ground glass nodule within the right upper lobe on image 122. There is a punctate calcified granuloma within the right lower lobe. No suspicious lytic are blastic osseous lesions. The thyroid gland enhances no rmally. No mediastinal, hilar, or axillary lymphadenopathy identified. The heart is normal in size. N o pericardial effusion. Normal caliber esophagus. No evidence for an aortic dissection. The main pulm onary arteries are patent. There are few mildly enlarged anterior diaphragmatic lymph nodes measuring up to 15 mm. There is mild distal paraesophageal lymphadenopathy measuring up to 13 mm. Abdomen/pelvis CT: No pneumoperitoneum. No pneumatosis. No acute fractures identified. There are 2 pu nctate sclerotic foci within the right iliac crest measuring up to 3 mm. This is indeterminate but co uld represent bone islands. Patchy area of sclerosis within the right medial pubic bone measuring 2.5 cm. This is also indeterminate and could represent chronic degenerative change. An osteoblastic meta static focus is not excluded. There are multiple scattered hypodense lesions seen throughout the live r. Dominant lesion within the right hepatic lobe measures 5 cm. These are consistent with metastatic lesions. The main portal vein is patent. The spleen, adrenal glands, and pancreas unremarkable. There is irregular gallbladder wall thickening likely representing metastatic disease. Trace ascites is no dyllan. Right greater than left urothelial thickening within the ureters most pronounced distally. This is concerning for tumor involvement/metastatic disease. This results in mild bilateral hydronephrosis . There is a slightly delayed right nephrogram. Mild distal paraesophageal and gastrohepatic lymphade nopathy is noted. Normal caliber abdominal aorta. No pelvic lymphadenopathy. Bladder wall thickening is noted. The prostate gland is enlarged. Extensive nodularity within the omentum with areas of perit friend thickening and trace ascites. This is consistent with peritoneal carcinomatosis. Multiple small scattered soft tissue nodules seen throughout the mesentery consistent with additional sites of abraham toneal carcinomatosis. There is necrotic ileocolonic lymphadenopathy consistent with metastatic disea se. There is a large soft tissue mass centered at the ileocecal valve which involves the terminal ile um and cecum. This is located within the right lower quadrant and is best seen on image 249. This magaly sures 8.4 x 7.6 cm. There is mild dilatation of the distal ileum measuring up to 3.2 cm. This is sugg estive of a developing partial small bowel obstruction secondary to this large mass. IMPRESSION: 1. There is an 8.4 x 7.6 cm soft tissue mass centered at the ileocecal valve which involves both the cecum and terminal ileum. There is extensive metastatic disease within the abdomen and pelvis as desc ribed above including peritoneal carcinomatosis and multiple hepatic metastases. Therefore, this coul d represent lymphoma or a primary colonic malignancy. 2. Urothelial thickening within the bilateral ureters most pronounced on the right. This favors metas tatic disease and results in mild bilateral hydronephrosis. 3. Small right pleural effusion. 4. Mild dilatation of the distal ileum suggestive of a low-grade partial small bowel obstruction from the large cecal mass. 5. Patchy area of sclerosis within the right medial pubic bone measuring 2.5 cm. This is indeterminat e and could be due to chronic degenerative change. An osteoblastic metastatic focus is not excluded. 6. There are 2 subcentimeter indeterminate groundglass nodules within the lungs with the largest radha uring 7 mm. Follow-up recommended to ensure stability. 7. Additional findings as described above. ACT 112: Negative or not required by law. Electronically signed by: Darek Francois M.D. 02/21/2023 7:05 PM
--- NOTE | 2023-02-21 19:11 | Ultrasound Report ---
TESTICULAR ULTRASOUND HISTORY: right testicular pain COMPARISON: None. FINDINGS: Right testis: 39 x 25 x 23 mm. A 3 mm epididymal head cyst. There are no intratesticular masses. Norm al color flow. No hydrocele.. Left testis: 43 x 29 x 22 mm. There are no intratesticular masses. Normal color flow. No hydrocele. T he epididymis is unremarkable. Small fat-containing reducible left inguinal hernia. IMPRESSION: 1. Normal bilateral testes. 2. Small fat-containing reducible left inguinal hernia. ACT 112: Negative or not required by law. Electronically signed by: Darek Francois M.D. 02/21/2023 7:10 PM
[2023-02-21] MEDS ORDERED: cefTRIAXone SODIUM 2,000 MG/70 ML BAG IV STA (19:34)
[2023-02-21] MEDS ORDERED: ENOXAPARIN INJ 40 MG/0.4 ML SYR SQ SCH (21:00)
--- NOTE | 2023-02-21 21:12 | History & Physical Report ---
Date of Service February 21, 2023 Assessment & Plan (1) Mass of colon: Plan: 62yo male presenting with approximately 1 month of abdominal pain, early satiety and unintentional weight loss. Unfortunately, CT with 8.4 x 7.6 cm soft tissue mass at the ileocecal valve involving the cecum and terminal ileum concerning for malignancy - lymphoma vs primary GI. Evidence of metastatic disease to include peritoneal carcinomatosis, hepatic masses, urothelial thickening and p ossible osteoblastic focus of right medial pubic bone. Also with 2 subcentimeter indeterminate groundglass nodules of the lung. -Admit to medical -GI consultation appreciated for possible biopsy of colonic mass -Morphine as needed for pain -Zofran as needed for nausea -Oncology consultation appreciated (2) SBO (small bowel obstruction): Plan: Findings as above with concern for partial SBO secondary to obstructing mass. Patient with no nausea, minimal abdominal pain, no distention. He reports having a normal BM yesterday. Passing very little flatus -Keep NPO -Will defer NGT at this time given lack of nausea, abdominal pain -Morphine PRN pain -Zofran PRN nausea -IVF with LR at 100mL/hr x 2 liters -General Surgery consulatation appreciated (3) TABATHA (acute kidney injury): Plan: Elevation of BUN and Cr from baseline. Patient reports normal UOP. Patient received a dose of Ceftriaxone for possible UTI. No bacteria. No urinary complaints. -Check urine Na and Cr -IVF -Repeat chemistry in AM -Avoid nephrotoxic agents -Renal dosing where needed -Hold on additional antibiotics at this time (4) Benign localized prostatic hyperplasia with lower urinary tract symptoms (LUTS): Plan: Chronic. Stable -Continue Flomax F/E/N - LR at 100mL/hr x 2 liters, monitor electrolytes and replete as needed, NPO for now Ppx - Lovenox Code - Full per discussion with Dispo - Admit to medical History of Present Illness Chief Complaint: abdominal pain, weight los Primary Care Provider: BRAULIO Pastrana Aleksander Hansen is a 62yo male with history of BPH presenting with abdominal pain, early satiety and unintentional weight loss. Mr. Hansen has known BPH with LUTS. He was found to have an elevated PSA of 11 during routine checkup. He was started on Flomax with improvement in BPH symptoms. He had an MRI on 09/12/22 which revealed a prostate lesion which was equivocal for malignancy. Patient had a prostate biopsy performed on 01/12/23 which was NEGATIVE for malignancy - chronic prostatitis thought to be reason for PSA elevation. Patient was prescribed Doxycycline BID and tolerated medication for a week. After the prostate biopsy he developed nausea, vomiting, diarrhea as well as back pain and diffuse abdominal pain. These symptoms largely resolved after 3 days but he continues to have abdominal bloating, decreased appetite and early satiety as well as worsening GERD symptoms. He reports persistent fatigue and decreased exercise tolerance as well as an 18# unintentional weight loss in the last month. Patient denies fever or chills. Denies melena/hematochezia. Patient performed a Cologuard in July which was reported to be NORMAL. In the ER he is afebrile, hypertensive otherwise HD stable. CT as below concerning for new malignant process. ER Course: Lovenox 40mg Ceftriaxone 2gm NSS x 2L Protonix 40mg IV Pepcid 20mg IV Allergies Allergy/AdvReac Type Severity Reaction Status Date / Time No Known Allergies Allergy Verified 02/21/23 19:39 Home Medications Medication Instructions Recorded Confirmed Type tamsulosin 0.4 mg capsule 0.4 mg PO DAILY #30 caps 05/16/22 02/21/23 Rx doxycycline hyclate 100 mg tablet 100 mg PO BID #30 tabs 01/29/23 02/21/23 Rx ondansetron 4 mg disintegrating 4 mg PO Q6H PRN Nausea 02/21/23 02/21/23 History tablet Past Med/Surg History Medical History Enlarged prostate Hypoxemia No acute medical problems Surgical History H/O prostate biopsy No pertinent past surgical history Family History (Updated 02/22/23 @ 00:22 by Aurora Manzanares DO) Other Cancer Social History Smoking Status: Never smoker Hx Alcohol Use: Yes Hx Substance Use: No Preferred Language: Tajik Communication Ability: Effective Architectural Inspector Required: No Beliefs That Will Affect Care: None Current Living Situation: Spouse Feels Safe at Home: Yes Assistive Devices: None Review of Systems Review of Systems: All systems reviewed & are unremarkable except as noted in HPI & below Physical Exam Physical Exam: General: patient resting comfortably, NAD, non-toxic in appearance, AA&O x 4 Skin: warm, dry, intact, no rashes or lesions HEENT: NC/AT, PERRL, EOMI, anicteric sclera, conjunctiva without injection, external ear normal to inspection and nontender, nares patent, moist mucus membranes, dentition intact, no oropharyngeal lesions, neck supple, trachea midline, no LAD, no thyromegaly, no JVD Heart: +S1/S2, regular, no m/r/g Lungs: equal air entry bilaterally, no rales/rhonchi/wheezes Abd: +BS, soft, NT/ND, no masses/organomegaly/ascites Ext: warm, 2+ pulses in UE/LE bilaterally, no clubbing/cyanosis or edema Neuro: nonfocal, patient AA&O x 4, speech intact, no facial droop, moving all extremities on command with equal strength 5/5 Results & Data Results & Data Vital Signs (Past 12 Hours) Vital Signs Temp Pulse Pulse Resp BP BP Pulse Ox 02/21/23 19:57 83 18 159/92 H 95 02/21/23 19:18 84 18 156/101 H 96 02/21/23 18:08 87 18 95 02/21/23 17:50 94 02/21/23 16:09 36.6 C 97 H 18 172/107 H 94 O2 Del Method 02/21/23 19:57 Room Air 02/21/23 19:18 Room Air 02/21/23 18:08 02/21/23 17:50 Room Air 02/21/23 16:09 Room Air Laboratory Results Laboratory Results WBC 7.96 K/ul (4.8-10.8) 02/21/23 16:52 RBC 4.19 M/uL (4.70-6.10) L 02/21/23 16:52 Hgb 13.0 g/dl (14.0-18.0) L 02/21/23 16:52 Hct 37.5 % (42.0-52.0) L 02/21/23 16:52 MCV 89.5 fL (80.0-100.0) 02/21/23 16:52 MCH 31.0 pg (25.0-34.0) 02/21/23 16:52 MCHC 34.7 g/dL (32.0-36.0) 02/21/23 16:52 RDW Std Deviation 40.4 fL (36.4-46.3) 02/21/23 16:52 RDW Coeff of [place] 12.4 % (11.5-14.5) 02/21/23 16:52 Plt Count 273 K/uL (130-400) 02/21/23 16:52 MPV 9.6 fL (9.4-12.4) 02/21/23 16:52 Immature Gran % (Auto) 0.4 % 02/21/23 16:52 Neut % (Auto) 70.0 % 02/21/23 16:52 Lymph % (Auto) 8.8 % 02/21/23 16:52 [place] % (Auto) 13.9 % 02/21/23 16:52 Eos % (Auto) 5.3 % 02/21/23 16:52 Baso % (Auto) 1.6 % 02/21/23 16:52 Neut # (Auto) 5.57 K/uL (1.40-6.50) 02/21/23 16:52 Lymph # (Auto) 0.70 K/uL (1.2-3.4) L 02/21/23 16:52 [place] # (Auto) 1.11 K/uL (0.11-0.59) H 02/21/23 16:52 Eos # (Auto) 0.42 K/uL (0-0.50) 02/21/23 16:52 Baso # (Auto) 0.13 K/uL (0-0.2) 02/21/23 16:52 Immature Gran # (Auto) 0.03 K/uL (0.01-0.20) 02/21/23 16:52 Sodium 136 mmol/L (136-145) 02/21/23 16:52 Potassium 3.7 mmol/L (3.5-5.1) 02/21/23 16:52 Chloride 97 mmol/L (98-107) L 02/21/23 16:52 Carbon Dioxide 23 mmol/L (21-32) 02/21/23 16:52 Anion Gap 16 (3-11) H 02/21/23 16:52 BUN 31 mg/dl (6-23) H 02/21/23 16:52 Creatinine 1.84 mg/dl (0.6-1.4) H 02/21/23 16:52 Est Cr Clr Drug Dosing 42.0 ml/min 02/21/23 16:52 Est GFR ( Amer) 44.5 ml/min 02/21/23 16:52 Est GFR (Non-Af Amer) 38.4 ml/min 02/21/23 16:52 BUN/Creatinine Ratio 16.8 (10-20) 02/21/23 16:52 Glucose 117 mg/dl (70-99(Fasting)) H 02/21/23 16:52 Calcium 9.6 mg/dl (8.6-10.3) 02/21/23 16:52 Phosphorus 4.2 mg/dl (2.5-4.9) 02/21/23 16:52 Magnesium 1.7 mg/dl (1.7-2.4) 02/21/23 16:52 Total Bilirubin 0.7 mg/dl (0.2-1.0) 02/21/23 16:52 AST 39 U/L (13-39) 02/21/23 16:52 ALT 36 U/L (7-52) 02/21/23 16:52 Alkaline Phosphatase 172 U/L (34-104) H 02/21/23 16:52 Troponin I High Sens 11.2 pg/ml (0-20) 02/21/23 16:52 Total Protein 6.8 gm/dl (6.0-8.3) 02/21/23 16:52 Albumin 4.0 gm/dl (3.4-5.0) 02/21/23 16:52 Globulin 2.8 gm/dl (2.5-4.0) 02/21/23 16:52 Albumin/Globulin Ratio 1.4 (0.9-2) 02/21/23 16:52 Lipase 30 U/L (11-82) 02/21/23 16:52 TSH 2.988 uIu/ml (0.300-4.500) 02/21/23 16:52 Urine Color Yellow 02/21/23 16:52 Urine Appearance Cloudy (Clear) A 02/21/23 16:52 Urine pH 5.0 (4.5-7.5) 02/21/23 16:52 Ur Specific Junior 1.013 (1.000-1.030) 02/21/23 16:52 Urine Protein 1+ (Negative) H 02/21/23 16:52 Urine Glucose (UA) Negative (Negative) 02/21/23 16:52 Urine Ketones Negative (Negative) 02/21/23 16:52 Urine Blood 3+ (Negative) H 02/21/23 16:52 Urine Nitrite Negative (Negative) 02/21/23 16:52 Urine Bilirubin Negative (Negative) 02/21/23 16:52 Urine Urobilinogen Negative (Negative) 02/21/23 16:52 Ur Leukocyte Esterase 2+ (Negative) H 02/21/23 16:52 Urine WBC (Auto) >30 /hpf (0-5) H 02/21/23 16:52 Urine RBC (Auto) 0-4 /hpf (0-4) 02/21/23 16:52 U Hyaline Cast (Auto) 1-5 /lpf (0-5) 02/21/23 16:52 U Epithel Cells (Auto) >30 /lpf (0-5) H 02/21/23 16:52 Urine Bacteria (Auto) Negative (Negative) 02/21/23 16:52 Urine Yeast Not Reportable 02/21/23 16:52 Lyme Disease IgG Ab Negative (Negative) 02/21/23 16:52 Lyme Disease IgM Ab Negative (Negative) 02/21/23 16:52 SARS-CoV-2, RNA, NAAT NEGATIVE (NEGATIVE) 02/21/23 16:52 Impressions Abdomen/Pelvis CT 02/21/23 16:[address] WITH CONTRAST, ABDOMEN AND PELVIS CT WITH INTRAVENOUS CONTRAST CT DOSE: 1936.19 mGy.cm HISTORY: SOB, weight loss TECHNIQUE: Multiaxial CT images of the chest, abdomen, and pelvis were performed following the intravenous administration of contrast. A dose lowering technique was utilized adhering to the principles of ALARA. COMPARISON: Chest CTA 10/22/2020. FINDINGS: Chest CT: The central airways are patent. No pneumothorax. There is a small right pleural effusion. Patchy groundglass densities within the right lower lobe posteriorly favor dependent change/atelectasis. There is a 5 mm groundglass nodule within the left lower lobe on image 139. There is a 7 mm groundglass nodule within the right upper lobe on image 122. There is a punctate calcified granuloma within the right lower lobe. No suspicious lytic are blastic osseous lesions. The thyroid gland enhances normally. No mediastinal, hilar, or axillary lymphadenopathy identified. The heart is normal in size. No pericardial ef fusion. Normal caliber esophagus. No evidence for an aortic dissection. The main pulmonary arteries are patent. There are few mildly enlarged anterior diaphragmatic lymph nodes measuring up to 15 mm. There is mild distal paraesophageal lymphadenopathy measuring up to 13 mm. Abdomen/pelvis CT: No pneumoperitoneum. No pneumatosis. No acute fractures identified. There are 2 punctate sclerotic foci within the right iliac crest measuring up to 3 mm. This is indeterminate but could represent bone islands. Patchy area of sclerosis within the right medial pubic bone measuring 2.5 cm. This is also indeterminate and could represent chronic degenerative change. An osteoblastic metastatic focus is not excluded. There are multiple scattered hypodense lesions seen throughout the liver. Dominant lesion within the right hepatic lobe measures 5 cm. These are consistent with metastatic lesions. The main portal vein is patent. The spleen, adrenal glands, and pancreas unremarkable. There is irregular gallbladder wall thickening likely representing metastatic disease. Trace ascites is noted. Right greater than left urothelial thickening within the ureters most pronounced distally. This is concerning for tumor involvement/metastatic disease. This results in mild bilateral hydronephrosis. There is a slightly delayed right nephrogram. Mild distal paraesophageal and gastrohepatic lymphadenopathy is noted. Normal caliber abdominal aorta. No pelvic lymphadenopathy. Bladder wall thickening is noted. The prostate gland is enlarged. Extensive nodularity within the omentum with areas of peritoneal thickening and trace ascites. This is consistent with peritoneal carcinomatosis. Multiple small scattered soft tissue nodules seen throughout the mesentery consistent with additional sites of peritoneal c arcinomatosis. There is necrotic ileocolonic lymphadenopathy consistent with metastatic disease. There is a large soft tissue mass centered at the ileocecal valve which involves the terminal ileum and cecum. This is located within the right lower quadrant and is best seen on image 249. This measures 8.4 x 7.6 cm. There is mild dilatation of the distal ileum measuring up to 3.2 cm. This is suggestive of a developing partial small bowel obstruction secondary to this large mass. IMPRESSION: 1. There is an 8.4 x 7.6 cm soft tissue mass centered at the ileocecal valve which involves both the cecum and terminal ileum. There is extensive metastatic disease within the abdomen and pelvis as described above including peritoneal carcinomatosis and multiple hepatic metastases. Therefore, this could represent lymphoma or a primary colonic malignancy. 2. Urothelial thickening within the bilateral ureters most pronounced on the right. This favors metastatic disease and results in mild bilateral hydronephrosis. 3. Small right pleural effusion. 4. Mild dilatation of the distal ileum suggestive of a low-grade partial small bowel obstruction from the large cecal mass. 5. Patchy area of sclerosis within the right medial pubic bone measuring 2.5 cm. This is indeterminate and could be due to chronic degenerative change. An osteoblastic metastatic focus is not excluded. 6. There are 2 subcentimeter indeterminate groundglass nodules within the lungs with the largest measuring 7 mm. Follow-up recommended to ensure stability. 7. Additional findings as described above. ACT 112: Negative or not required by law. Electronically signed by: Darek Francois M.D. 02/21/2023 7:[address] 02/21/23 16:[address] WITH CONTRAST, ABDOMEN AND PELVIS CT WITH INTRAVENOUS CONTRAST CT DOSE: 1936.19 mGy.cm HISTORY: SOB, weight loss TECHNIQUE: Multiaxial CT images of the chest, abdomen, and pelvis were performed following the intravenous administration of contrast. A dose lowering technique was utilized adhering to the principles of ALARA. COMPARISON: Chest CTA 10/22/2020. FINDINGS: Chest CT: The central airways are patent. No pneumothorax. There is a small right pleural effusion. Patchy groundglass densities within the right lower lobe posteriorly favor dependent change/atelectasis. There is a 5 mm groundglass no dule within the left lower lobe on image 139. There is a 7 mm groundglass nodule within the right upper lobe on image 122. There is a punctate calcified granuloma within the right lower lobe. No suspicious lytic are blastic osseous lesions. The thyroid gland enhances normally. No mediastinal, hilar, or axillary lymphadenopathy identified. The heart is normal in size. No pericardial effusion. Normal caliber esophagus. No evidence for an aortic dissection. The main pulmonary arteries are patent. There are few mildly enlarged anterior diaphragmatic lymph nodes measuring up to 15 mm. There is mild distal paraesophageal lymphadenopathy measuring up to 13 mm. Abdomen/pelvis CT: No pneumoperitoneum. No pneumatosis. No acute fractures identified. There are 2 punctate sclerotic foci within the right iliac crest measuring up to 3 mm. This is indeterminate but could represent bone islands. Patchy area of sclerosis within the right medial pubic bone measuring 2.5 cm. This is also indeterminate and could represent chronic degenerative change. An osteoblastic metastatic focus is not excluded. There are multiple scattered hypodense lesions seen throughout the liver. Dominant lesion within the right hepatic lobe measures 5 cm. These are consistent with metastatic lesions. The main portal vein is patent. The spleen, adrenal glands, and pancreas unremarkable. There is irregular gallbladder wall thickening likely representing metastatic disease. Trace ascites is noted. Right greater than left urothelial thickening within the ureters most pronounced distally. This is concerning for tumor involvement/metastatic disease. This results in mild bilateral hydronephrosis. There is a slightly delayed right nephrogram. Mild distal paraesophageal and gastrohepatic lymphadenopathy is noted. Normal caliber abdominal aorta. No pelvic lymphadenopathy. Bladder wall thickening is noted. The prostate gland is enlarged. Extensive nodularity within the omentum with areas of peritoneal thickening and trace ascites. This is consistent with peritoneal carcinomatosis. Multiple small scattered soft tissue nodules seen throughout the mesentery consistent with additional sites of peritoneal carcinomatosis. There is necrotic ileocolonic lymphadenopathy consistent with metastatic disease. There is a large soft tissue mass centered at the ileocecal valve which involves the terminal ileum and cecum. This is located within the right lower quadrant and is best seen on image 249. This measures 8.4 x 7.6 cm. There is mild dilatation of the distal ileum measuring up to 3.2 cm. This is suggestive of a developing partial small bowel obstruction secondary to this large mass. IMPRESSION: 1. There is an 8.4 x 7.6 cm soft tissue mass centered at the ileocecal valve which involves both the cecum and terminal ileum. There is extensive metastatic disease within the abdomen and pelvis as described above including peritoneal carcinomatosis and multiple hepatic metastases. Therefore, this could represent lymphoma or a primary colonic malignancy. 2. Urothelial thickening within the bilateral ureters most pronounced on the right. This favors metastatic disease and results in mild bilateral hydronephrosis. 3. Small right pleural effusion. 4. Mild dilatation of the distal ileum suggestive of a low-grade partial small bowel obstruction from the large cecal mass. 5. Patchy area of sclerosis within the right medial pubic bone measuring 2.5 cm. This is indeterminate and could be due to chronic degenerative change. An osteoblastic metastatic focus is not excluded. 6. There are 2 subcentimeter indeterminate groundglass nodules within the lungs with the largest measuring 7 mm. Follow-up recommended to ensure stability. 7. Additional findings as described above. ACT 112: Negative or not required by law. Electronically signed by: Darek Francois M.D. 02/21/2023 7:05 PM Scrotum Ultrasound 02/21/23 16:40 TESTICULAR ULTRASOUND HISTORY: right testicular pain COMPARISON: None. FINDINGS: Right testis: 39 x 25 x 23 mm. A 3 mm epididymal head cyst. There are no intratesticular masses. Normal color flow. No hydrocele.. Left testis: 43 x 29 x 22 mm. There are no intratesticular masses. Normal color flow. No hydrocele. The epididymis is unremarkable. Small fat-containing reducible left inguinal hernia. IMPRESSION: 1. Normal bilateral testes. 2. Small fat-containing reducible left inguinal hernia. ACT 112: Negative or not required by law. Electronically signed by: Darek Francois M.D. 02/21/2023 7:10 PM ECG Additional Comments: nSR at 88bpm, no acute ischemic changes Code Status & VTE Plan VTE Prophylaxis Plan VTE Prophylaxis will be ordered: Yes PG Care Time/CCT Total # of Minutes Spent Total Time Spent with Patient: Total time spent is greater than 50% in coordination of care (as documented) at patient's floor/unit and/or counseling patient: Coding Level of Care Code 22041 INT INP/OBS CARE 2/55MIN Diagnoses Mass of colon K63.89 SBO (small bowel obstruction) K56.609 TABATHA (acute kidney injury) N17.9 Benign localized prostatic hyperplasia with lower urinary tract symptoms (LUTS) N40.1
[2023-02-21] MEDS ORDERED: MoRPHine SULFATE 2 MG/ML CARP IV PRN (22:32)
[2023-02-21 22:53] LABS: Magnesium 1.7 mg/dl (1.7-2.4); Phosphorus 4.2 mg/dl (2.5-4.9)
[2023-02-21] MEDS: LACTATED RINGER'S 1,000 ML IV SCH (23:16)
--- NOTE | 2023-02-22 00:42 | Oncology Consultation ---
Date of Consultation February 22, 2023 Assessment & Plan (1) Peritoneal carcinomatosis: (2) SBO (small bowel obstruction): (3) TABATHA (acute kidney injury): (4) Cecum mass: Plan -Imaging suggestive of colon cancer with extensive metastases. Needs biopsy to confirm malignancy and identify primary. Colonoscopy with biopsy of cecal mass or IR guided liver biopsy. Will obtain CEA -May need diversion with ileostomy if obstuctive symptoms do not improve. Defer to surgery/G.I -Plan to see him after biopsy to discuss treatment options. Thanks for this consult. Will continue to follow while he is in the hospital.Please call if you have any questions History of Present Illness Reason for Consultation: Likely new maliganncy Attending Physician: Aurora Manzanares, DO History of Present Illness 62yo male with history of BPH who presented to the ED with abdominal pain, early satiety and unintentional weight loss. CT CAP obtained in the ED revealed 8.4 x 7.6 cm soft tissue mass centered at the ileocecal valve which involves both the cecum and terminal ileum,extensive metastatic disease within the abdomen and pelvis as including peritoneal carcinomatosis and multiple hepatic metastases, Urothelial thickening within the bilateral ureters most pronounced on the right favors metastatic disease and results in mild bilateral hydronephrosis, Small right pleural effusion, Mild dilatation of the distal ileum suggestive of a low- grade partial small bowel obstruction from the large cecal mass, Patchy area of sclerosis within the right medial pubic bone measuring 2.5 cm. This is indeterminate and could be due to chronic degenerative change an osteoblastic metastatic focus is not excluded and 2 subcentimeter indeterminate groundglass nodules within the lungs with the largest measuring 7 mm. Patient not evaluated in person but Per review of chart, he had a prostate biopsy performed on 01/12/23 for elevated PSA which was negative for malignancy. Labs on admission significant for TABATHA with creatinine of 1.84 Allergies Allergy/AdvReac Type Severity Reaction Status Date / Time No Known Allergies Allergy Verified 02/21/23 19:39 Home Medications Medication Instructions Recorded Confirmed Type tamsulosin 0.4 mg capsule 0.4 mg PO DAILY #30 caps 05/16/22 02/21/23 Rx doxycycline hyclate 100 mg tablet 100 mg PO BID #30 tabs 01/29/23 02/21/23 Rx ondansetron 4 mg disintegrating 4 mg PO Q6H PRN Nausea 02/21/23 02/21/23 History tablet Patient History Medical History Enlarged prostate Hypoxemia No acute medical problems Surgical History H/O prostate biopsy No pertinent past surgical history Family History (Updated 02/22/23 @ 00:22 by Aurora Manzanares DO) Other Cancer Social History Smoking Status: Never smoker Hx Alcohol Use: Yes Alcohol type: beer Hx Substance Use: No Preferred Language: Uzbek Communication Ability: Effective Machine Design Checker Required: No Beliefs That Will Affect Care: None Current Living Situation: Spouse Feels Safe at Home: Yes Safety Concerns: Feels Safe At This Time Assistive Devices: None Results & Data Vital Signs (Past 12 Hours) Vital Signs Temp Pulse Pulse Resp BP BP Pulse Ox 02/21/23 22:30 36.4 C L 78 16 128/76 97 02/21/23 21:54 02/21/23 21:29 36.6 C 02/21/23 21:28 89 18 159/113 H 94 02/21/23 19:57 83 18 159/92 H 95 02/21/23 19:18 84 18 156/101 H 96 02/21/23 18:08 87 18 95 02/21/23 17:50 94 02/21/23 16:09 36.6 C 97 H 18 172/107 H 94 O2 Del Method 02/21/23 22:30 Room Air 02/21/23 21:54 Room Air 02/21/23 21:29 02/21/23 21:28 Room Air 02/21/23 19:57 Room Air 02/21/23 19:18 Room Air 02/21/23 18:08 02/21/23 17:50 Room Air 02/21/23 16:09 Room Air
[2023-02-22 02:35] LABS: Creatinine Urine Random 47.5 mg/dl
[2023-02-22] MEDS: MoRPHine SULFATE 2 MG/ML CARP IV PRN ×2 (06:12→16:49)
[2023-02-22 06:28] LABS: Hematocrit (blood only) 37.4 % (42.0-52.0); Hemoglobin 13.2 g/dl (14.0-18.0); Mean Corpuscular Hgb Conc 35.3 g/dL (32.0-36.0); Mean Corpuscular Volume 87.8 fL (80.0-100.0); Mean Platelet Volume 9.5 fL (9.4-12.4); Platelet Count 260 K/uL (130-400); RDW Coefficient of Variation 12.4 % (11.5-14.5); RDW Standard Deviation 39.8 fL (36.4-46.3); Red Blood Count 4.26 M/uL (4.70-6.10); White Blood Count 7.74 K/ul (4.8-10.8)
[2023-02-22 06:45] LABS: BUN Creatinine Ratio 14.1 (10-20); Calcium 9.1 mg/dl (8.6-10.3); Est GFR (African American) 44.5 ml/min; Est GFR (Non-African American) 38.4 ml/min; Potassium 4.2 mmol/L (3.5-5.1)
--- NOTE | 2023-02-22 08:27 | Hospitalist Progress Note ---
Date of Service February 22, 2023 Assessment & Plan (1) Mass of colon: Plan: 62yo male presenting with approximately 1 month of abdominal pain, early satiety and unintentional weight loss. Unfortunately, CT with 8.4 x 7.6 cm soft tissue mass at the ileocecal valve involving the cecum and terminal ileum concerning for malignancy - lymphoma vs primary GI. Evidence of metastatic disease to include peritoneal carcinomatosis, hepatic masses, urothelial thickening within b/l ureters most pronounced on right, resulting in mild b/l hydronephrosis and possible osteoblastic focus of right medial pubic bone. Also with 2 subcentimeter indeterminate groundglass nodules of the lung. Mild dilatation of the distal ileum suggestive of a low-grade partial small bowel obstruction from the large cecal mass. Admit to medical Oncology consultation appreciated - imaging suggestive of colon ca w/ extensive metastases. Nephew from colon ca, ?genetic component. Rec colonoscopy w/ biopsy of cecal mass or IR guided liver biopsy. CEA to be obtained -- no significant elevation 0.6 which raises concerns for more of a lymphoma picture May need diversion w/ ileostomy if obstructive symptom do not improved. Defer to surgery/GI. They plan to see after bx to discuss treatment options LDH elevated, noting prior elevated PSA to 11s in Jul 2022 as well Remains on IVF LR @ 100cc/hr --> increase to 150cc/hr given elevated Cr and miralax being ordered for bowel prep General surgery consulted NPO given SBO 2nd to obstructing mass except sips/chips --> advanced to clear liquids for today by surgery -- discussed CEA level, however risks for size of mass/location, perforation/future obstructions while awaiting starting any treatment (as we don't have tissue diagnosis), plans for miralax bowel prep for today and surgical resection of mass tomorrow as well as biopsy of the liver/peritoneal seeding/etc. Planning for open procedure per discussion for R hemicolectomy GI also consulted however appears surgery will address both issues for now Pain control/antiemetics prn Monitor lab in AM on repeat DVT proph: Lovenox SQ ordered on admission, given dose already. Given his renal dysfunction will place further lovenox on hold, message to surgery to see if wanting any Heparin SQ for tonight, otherwise SCDs ordered in meantime (2) SBO (small bowel obstruction): Plan: Findings as above with concern for partial SBO secondary to obstructing mass. Patient with no nausea, minimal abdominal pain, no distention. He reports having a normal BM yesterday02/20. Passing very little flatus Passing gas reported, +BS Bowel prep as instructed by primary, increased IVF to 150cc/hr and will monitor Pain control/antiemetics as needed Surgery consulted as above (3) TABATHA (acute kidney injury): Plan: Elevation of BUN and Cr from baseline. Patient reports normal UOP. Patient received a dose of Ceftriaxone for possible UTI. No bacteria. No urinary complaints. No further abx at this time Urine na/cr obtained, avoiding nephrotoxins as able, renal dose as able Cr unchanged, IVF increased as above Order for bladder scan given hydro which could be from mass, however reports no issues with voiding. Monitor bladder scan/UOP, post-void residual ordered , joseph placement if needed Will cancel further lovenox for dvt proph as above given renal dysfunction, messaged surgery about Heparin SQ for tonight vs just using SCDs for now BMP in AM (4) Benign localized prostatic hyperplasia with lower urinary tract symptoms (LUTS): Plan: Chronic. Stable reported -Continue Flomax Plan continued inpatient stay, bowel prep for today/NPO at midnight and planning for OR tomorrow. Admission and Anticipated Discharge Date Admission Date: February 21, 2023 Supervising Physician Co-Signing Physician Notes The patient was not seen by me. The chart was reviewed. Case discussed with YANETH Rocha. Agree with assessment and Subjective eval this morning, Dr Recio and at bedside.No chest pain/shortness of breath but does endorse fatigue, weight loss over the past month. Pain controlled w/ morphine. denies issues urinating. Passing some gas and felt like he needed to have BM today. Aware of imaging findings. Discussed CEA level, discussion with Dr Guevara, and plans for surgery for resection of mass tomorrow as well as liver bx. Will plan to go low/slow with miralax prep and start now for tomorrow. They are inquiring how long to be off work, also about treatment closer to home where nephew got his.Discussed will be in contact w/ Heme/onc during stay and can help to coordinate but will await pathology to see what treatment options are first. Instructed to write any questions/concerns as they arise. Questions/concerns addressed at this time. Physical Exam Physical Exam: General: WD/WN male sitting up in bed, surgeon and at bedside, NAD HEENT: head normocephalic, pupils equal in size, mm slightly dry, trachea midline Resp: CTA, no w/c/r, on room air CV: RRR, no significant m/r/g, no pitting edema/calf tenderness GI: +BS, slightly hypoactive but bowel sounds present throughout, fullness to the RLQ (likely corresponding to mass), slight tenderness to palpation, no rebound/guarding/rigidity : no joseph MSK/Neuro: no focal deficits, no slurred speech/facial droop, follows commands Psych:AOX3, cooperative with examination Results & Data Results & Data Vital Signs (Past 12 Hours) Vital Signs Temp Pulse Resp BP Pulse Ox O2 Del Method 02/22/23 07:13 36.4 C L 83 16 160/94 H 95 Room Air 02/21/23 22:30 36.4 C L 78 16 128/76 97 Room Air 02/21/23 21:54 Room Air 02/21/23 21:29 36.6 C 02/21/23 21:28 89 18 159/113 H 94 Room Air Laboratory Results 02/22/23 02/22/23 02/22/23 Range/Units Unknown 06:04 06:04 WBC (4.8-10.8) K/ul RBC (4.70-6.10) M/uL Hgb (14.0-18.0) g/dl Hct (42.0-52.0) % MCV (80.0-100.0) fL MCH (25.0-34.0) pg MCHC (32.0-36.0) g/dL RDW Std Deviation (36.4-46.3) fL RDW Coeff of [place] (11.5-14.5) % Plt Count (130-400) K/uL MPV (9.4-12.4) fL Immature Gran % (Auto) % Neut % (Auto) % Lymph % (Auto) % [place] % (Auto) % Eos % (Auto) % Baso % (Auto) % Neut # (Auto) (1.40-6.50) K/uL Lymph # (Auto) (1.2-3.4) K/uL [place] # (Auto) (0.11-0.59) K/uL Eos # (Auto) (0-0.50) K/uL Baso # (Auto) (0-0.2) K/uL Immature Gran # (Auto) (0.01-0.20) K/uL Sodium (136-145) mmol/L Potassium (3.5-5.1) mmol/L Chloride (98-107) mmol/L Carbon Dioxide (21-32) mmol/L Anion Gap (3-11) BUN (6-23) mg/dl Creatinine (0.6-1.4) mg/dl Est Cr Clr Drug Dosing ml/min Est GFR ( Amer) ml/min Est GFR (Non-Af Amer) ml/min BUN/Creatinine Ratio (10-20) Glucose (70-99(Fasting)) mg/dl Calcium (8.6-10.3) mg/dl Phosphorus (2.5-4.9) mg/dl Magnesium (1.7-2.4) mg/dl Total Bilirubin (0.2-1.0) mg/dl AST (13-39) U/L ALT (7-52) U/L Alkaline Phosphatase (34-104) U/L Lactate Dehydrogenase 387 H (86-244) U/L Troponin I High Sens (0-20) pg/ml Total Protein (6.0-8.3) gm/dl Albumin (3.4-5.0) gm/dl Globulin (2.5-4.0) gm/dl Albumin/Globulin Ratio (0.9-2) Lipase (11-82) U/L Carcinoembryonic Ag 0.6 (0-2.5) ng/ml TSH (0.300-4.500) uIu/ml Urine Color Urine Appearance (Clear) Urine pH (4.5-7.5) Ur Specific [place] (1.000-1.030) Urine Protein (Negative) Urine Glucose (UA) (Negative) Urine Ketones (Negative) Urine Blood (Negative) Urine Nitrite (Negative) Urine Bilirubin (Negative) Urine Urobilinogen (Negative) Ur Leukocyte Esterase (Negative) Urine WBC (Auto) (0-5) /hpf Urine RBC (Auto) (0-4) /hpf U Hyaline Cast (Auto) (0-5) /lpf U Epithel Cells (Auto) (0-5) /lpf Urine Bacteria (Auto) (Negative) Urine Yeast Ur Random Creatinine 47.5 mg/dl Ur Random Sodium 56 mmol/L Lyme Disease IgG Ab (Negative) Lyme Disease IgM Ab (Negative) SARS-CoV-2, RNA, NAAT (NEGATIVE) 02/22/23 02/22/23 02/21/23 Range/Units 06:04 06:04 16:52 WBC 7.74 (4.8-10.8) K/ul RBC 4.26 L (4.70-6.10) M/uL Hgb 13.2 L (14.0-18.0) g/dl Hct 37.4 L (42.0-52.0) % MCV 87.8 (80.0-100.0) fL MCH 31.0 (25.0-34.0) pg MCHC 35.3 (32.0-36.0) g/dL RDW Std Deviation 39.8 (36.4-46.3) fL RDW Coeff of [place] 12.4 (11.5-14.5) % Plt Count 260 (130-400) K/uL MPV 9.5 (9.4-12.4) fL Immature Gran % (Auto) % Neut % (Auto) % Lymph % (Auto) % [place] % (Auto) % Eos % (Auto) % Baso % (Auto) % Neut # (Auto) (1.40-6.50) K/uL Lymph # (Auto) (1.2-3.4) K/uL [place] # (Auto) (0.11-0.59) K/uL Eos # (Auto) (0-0.50) K/uL Baso # (Auto) (0-0.2) K/uL Immature Gran # (Auto) (0.01-0.20) K/uL Sodium 139 (136-145) mmol/L Potassium 4.2 (3.5-5.1) mmol/L Chloride 102 (98-107) mmol/L Carbon Dioxide 24 (21-32) mmol/L Anion Gap 13 H (3-11) BUN 26 H (6-23) mg/dl Creatinine 1.84 H (0.6-1.4) mg/dl Est Cr Clr Drug Dosing 42.0 ml/min Est GFR ( Amer) 44.5 ml/min Est GFR (Non-Af Amer) 38.4 ml/min BUN/Creatinine Ratio 14.1 (10-20) Glucose 73 (70-99(Fasting)) mg/dl Calcium 9.1 (8.6-10.3) mg/dl Phosphorus (2.5-4.9) mg/dl Magnesium (1.7-2.4) mg/dl Total Bilirubin (0.2-1.0) mg/dl AST (13-39) U/L ALT (7-52) U/L Alkaline Phosphatase (34-104) U/L Lactate Dehydrogenase (86-244) U/L Troponin I High Sens (0-20) pg/ml Total Protein (6.0-8.3) gm/dl Albumin (3.4-5.0) gm/dl Globulin (2.5-4.0) gm/dl Albumin/Globulin Ratio (0.9-2) Lipase (11-82) U/L Carcinoembryonic Ag (0-2.5) ng/ml TSH (0.300-4.500) uIu/ml Urine Color Yellow Urine Appearance Cloudy A (Clear) Urine pH 5.0 (4.5-7.5) Ur Specific [place] 1.013 (1.000-1.030) Urine Protein 1+ H (Negative) Urine Glucose (UA) Negative (Negative) Urine Ketones Negative (Negative) Urine Blood 3+ H (Negative) Urine Nitrite Negative (Negative) Urine Bilirubin Negative (Negative) Urine Urobilinogen Negative (Negative) Ur Leukocyte Esterase 2+ H (Negative) Urine WBC (Auto) >30 H (0-5) /hpf Urine RBC (Auto) 0-4 (0-4) /hpf U Hyaline Cast (Auto) 1-5 (0-5) /lpf U Epithel Cells (Auto) >30 H (0-5) /lpf Urine Bacteria (Auto) Negative (Negative) Urine Yeast Not Reportable Ur Random Creatinine mg/dl Ur Random Sodium mmol/L Lyme Disease IgG Ab (Negative) Lyme Disease IgM Ab (Negative) SARS-CoV-2, RNA, NAAT (NEGATIVE) 02/21/23 02/21/23 02/21/23 Range/Units 16:52 16:52 16:52 WBC (4.8-10.8) K/ul RBC (4.70-6.10) M/uL Hgb (14.0-18.0) g/dl Hct (42.0-52.0) % MCV (80.0-100.0) fL MCH (25.0-34.0) pg MCHC (32.0-36.0) g/dL RDW Std Deviation (36.4-46.3) fL RDW Coeff of [place] (11.5-14.5) % Plt Count (130-400) K/uL MPV (9.4-12.4) fL Immature Gran % (Auto) % Neut % (Auto) % Lymph % (Auto) % [place] % (Auto) % Eos % (Auto) % Baso % (Auto) % Neut # (Auto) (1.40-6.50) K/uL Lymph # (Auto) (1.2-3.4) K/uL [place] # (Auto) (0.11-0.59) K/uL Eos # (Auto) (0-0.50) K/uL Baso # (Auto) (0-0.2) K/uL Immature Gran # (Auto) (0.01-0.20) K/uL Sodium (136-145) mmol/L Potassium (3.5-5.1) mmol/L Chloride (98-107) mmol/L Carbon Dioxide (21-32) mmol/L Anion Gap (3-11) BUN (6-23) mg/dl Creatinine (0.6-1.4) mg/dl Est Cr Clr Drug Dosing ml/min Est GFR ( Amer) ml/min Est GFR (Non-Af Amer) ml/min BUN/Creatinine Ratio (10-20) Glucose (70-99(Fasting)) mg/dl Calcium (8.6-10.3) mg/dl Phosphorus (2.5-4.9) mg/dl Magnesium (1.7-2.4) mg/dl Total Bilirubin (0.2-1.0) mg/dl AST (13-39) U/L ALT (7-52) U/L Alkaline Phosphatase (34-104) U/L Lactate Dehydrogenase (86-244) U/L Troponin I High Sens (0-20) pg/ml Total Protein (6.0-8.3) gm/dl Albumin (3.4-5.0) gm/dl Globulin (2.5-4.0) gm/dl Albumin/Globulin Ratio (0.9-2) Lipase (11-82) U/L Carcinoembryonic Ag (0-2.5) ng/ml TSH 2.988 (0.300-4.500) uIu/ml Urine Color Urine Appearance (Clear) Urine pH (4.5-7.5) Ur Specific [place] (1.000-1.030) Urine Protein (Negative) Urine Glucose (UA) (Negative) Urine Ketones (Negative) Urine Blood (Negative) Urine Nitrite (Negative) Urine Bilirubin (Negative) Urine Urobilinogen (Negative) Ur Leukocyte Esterase (Negative) Urine WBC (Auto) (0-5) /hpf Urine RBC (Auto) (0-4) /hpf U Hyaline Cast (Auto) (0-5) /lpf U Epithel Cells (Auto) (0-5) /lpf Urine Bacteria (Auto) (Negative) Urine Yeast Ur Random Creatinine mg/dl Ur Random Sodium mmol/L Lyme Disease IgG Ab Negative (Negative) Lyme Disease IgM Ab Negative (Negative) SARS-CoV-2, RNA, NAAT NEGATIVE (NEGATIVE) 02/21/23 02/21/23 Range/Units 16:52 16:52 WBC 7.96 (4.8-10.8) K/ul RBC 4.19 L (4.70-6.10) M/uL Hgb 13.0 L (14.0-18.0) g/dl Hct 37.5 L (42.0-52.0) % MCV 89.5 (80.0-100.0) fL MCH 31.0 (25.0-34.0) pg MCHC 34.7 (32.0-36.0) g/dL RDW Std Deviation 40.4 (36.4-46.3) fL RDW Coeff of [place] 12.4 (11.5-14.5) % Plt Count 273 (130-400) K/uL MPV 9.6 (9.4-12.4) fL Immature Gran % (Auto) 0.4 % Neut % (Auto) 70.0 % Lymph % (Auto) 8.8 % [place] % (Auto) 13.9 % Eos % (Auto) 5.3 % Baso % (Auto) 1.6 % Neut # (Auto) 5.57 (1.40-6.50) K/uL Lymph # (Auto) 0.70 L (1.2-3.4) K/uL [place] # (Auto) 1.11 H (0.11-0.59) K/uL Eos # (Auto) 0.42 (0-0.50) K/uL Baso # (Auto) 0.13 (0-0.2) K/uL Immature Gran # (Auto) 0.03 (0.01-0.20) K/uL Sodium 136 (136-145) mmol/L Potassium 3.7 (3.5-5.1) mmol/L Chloride 97 L (98-107) mmol/L Carbon Dioxide 23 (21-32) mmol/L Anion Gap 16 H (3-11) BUN 31 H (6-23) mg/dl Creatinine 1.84 H (0.6-1.4) mg/dl Est Cr Clr Drug Dosing 42.0 ml/min Est GFR ( Amer) 44.5 ml/min Est GFR (Non-Af Amer) 38.4 ml/min BUN/Creatinine Ratio 16.8 (10-20) Glucose 117 H (70-99(Fasting)) mg/dl Calcium 9.6 (8.6-10.3) mg/dl Phosphorus 4.2 (2.5-4.9) mg/dl Magnesium 1.7 (1.7-2.4) mg/dl Total Bilirubin 0.7 (0.2-1.0) mg/dl AST 39 (13-39) U/L ALT 36 (7-52) U/L Alkaline Phosphatase 172 H (34-104) U/L Lactate Dehydrogenase (86-244) U/L Troponin I High Sens 11.2 (0-20) pg/ml Total Protein 6.8 (6.0-8.3) gm/dl Albumin 4.0 (3.4-5.0) gm/dl Globulin 2.8 (2.5-4.0) gm/dl Albumin/Globulin Ratio 1.4 (0.9-2) Lipase 30 (11-82) U/L Carcinoembryonic Ag (0-2.5) ng/ml TSH (0.300-4.500) uIu/ml Urine Color Urine Appearance (Clear) Urine pH (4.5-7.5) Ur Specific [place] (1.000-1.030) Urine Protein (Negative) Urine Glucose (UA) (Negative) Urine Ketones (Negative) Urine Blood (Negative) Urine Nitrite (Negative) Urine Bilirubin (Negative) Urine Urobilinogen (Negative) Ur Leukocyte Esterase (Negative) Urine WBC (Auto) (0-5) /hpf Urine RBC (Auto) (0-4) /hpf U Hyaline Cast (Auto) (0-5) /lpf U Epithel Cells (Auto) (0-5) /lpf Urine Bacteria (Auto) (Negative) Urine Yeast Ur Random Creatinine mg/dl Ur Random Sodium mmol/L Lyme Disease IgG Ab (Negative) Lyme Disease IgM Ab (Negative) SARS-CoV-2, RNA, NAAT (NEGATIVE) Diagnostic Findings Abdomen/Pelvis CT 02/21/23 16:[address] WITH CONTRAST, ABDOMEN AND PELVIS CT WITH INTRAVENOUS CONTRAST CT DOSE: 1936.19 mGy.cm HISTORY: SOB, weight loss TECHNIQUE: Multiaxial CT images of the chest, abdomen, and pelvis were performed following the intravenous administration of contrast. A dose lowering technique was utilized adhering to the principles of ALARA. COMPARISON: Chest CTA 10/22/2020. FINDINGS: Chest CT: The central airways are patent. No pneumothorax. There is a small right pleural effusion. Patchy groundglass densities within the right lower lobe posteriorly favor dependent change/atelectasis. There is a 5 mm groundglass nodule within the left lower lobe on image 139. There is a 7 mm groundglass nodule within the right upper lobe on image 122. There is a punctate calcified granuloma within the right lower lobe. No suspicious lytic are blastic osseous lesions. The thyroid gland enhances normally. No mediastinal, hilar, or axillary lymphadenopathy identified. The heart is normal in size. No pericardial effusion. Normal caliber esophagus. No evidence for an aortic dissection. The main pulmonary arteries are patent. There are few mildly enlarged anterior diaphragmatic lymph nodes measuring up to 15 mm. There is mild distal paraesophageal lymphadenopathy measuring up to 13 mm. Abdomen/pelvis CT: No pneumoperitoneum. No pneumatosis. No acute fractures identified. There are 2 punctate sclerotic foci within the right iliac crest measuring up to 3 mm. This is indeterminate but could represent bone islands. Patchy area of sclerosis within the right medial pubic bone measuring 2.5 cm. This is also indeterminate and could represent chronic degenerative change. An osteoblastic metastatic focus is not excluded. There are multiple scattered hypodense lesions seen throughout the liver. Dominant lesion within the right hepatic lobe measures 5 cm. These are consistent with metastatic lesions. The main portal vein is patent. The spleen, adrenal glands, and pancreas unremarkable. There is irregular gallbladder wall thickening likely representing metastatic disease. Trace ascites is noted. Right greater than left urothelial thickening within the ureters most pronounced distally. This is concerning for tumor involvement/metastatic disease. This results in mild bilateral hydronephrosis. There is a slightly delayed right nephrogram. Mild distal paraesophageal and gastrohepatic lymphadenopathy is noted. Normal caliber abdominal aorta. No pelvic lymphadenopathy. Bladder wall thickening is noted. The prostate gland is enlarged. Extensive nodularity within the omentum with areas of peritoneal thickening and trace ascites. This is consistent with peritoneal carcinomatosis. Multiple small scattered soft tissue nodules seen throughout the mesentery consistent with additional sites of peritoneal carcinomatosis. There is necrotic ileocolonic lymphadenopathy consistent with metastatic disease. There is a large soft tissue mass centered at the ileocecal valve which involves the terminal ileum and cecum. This is located within the right lower quadrant and is best seen on image 249. This measures 8.4 x 7.6 cm. There is mild dilatation of the distal ileum measuring up to 3.2 cm. This is suggestive of a developing partial small bowel obstruction secondary to this l arge mass. IMPRESSION: 1. There is an 8.4 x 7.6 cm soft tissue mass centered at the ileocecal valve which involves both the cecum and terminal ileum. There is extensive metastatic disease within the abdomen and pelvis as described above including peritoneal carcinomatosis and multiple hepatic metastases. Therefore, this could represent lymphoma or a primary colonic malignancy. 2. Urothelial thickening within the bilateral ureters most pronounced on the right. This favors metastatic disease and results in mild bilateral hydronephrosis. 3. Small right pleural effusion. 4. Mild dilatation of the distal ileum suggestive of a low-grade partial small bowel obstruction from the large cecal mass. 5. Patchy area of sclerosis within the right medial pubic bone measuring 2.5 cm. This is indeterminate and could be due to chronic degenerative change. An osteoblastic metastatic focus is not excluded. 6. There are 2 subcentimeter indeterminate groundglass nodules within the lungs with the largest measuring 7 mm. Follow-up recommended to ensure stability. 7. Additional findings as described above. ACT 112: Negative or not required by law. Electronically signed by: Darek Francois M.D. 02/21/2023 7:[address] 02/21/23 16:[address] WITH CONTRAST, ABDOMEN AND PELVIS CT WITH INTRAVENOUS CONTRAST CT DOSE: 1936.19 mGy.cm HISTORY: SOB, weight loss TECHNIQUE: Multiaxial CT images of the chest, abdomen, and pelvis were performed following the intravenous administration of contrast. A dose lowering technique was utilized adhering to the principles of ALARA. COMPARISON: Chest CTA 10/22/2020. FINDINGS: Chest CT: The central airways are patent. No pneumothorax. There is a small right pleural effusion. Patchy groundglass densities within the right lower lobe posteriorly favor dependent change/atelectasis. There is a 5 mm groundglass nodule within the left lower lobe on image 139. There is a 7 mm groundglass nodule within the right upper lobe on image 122. There is a punctate calcified granuloma within the right lower lobe. No suspicious lytic are blastic osseous lesions. The thyroid gland enhances normally. No mediastinal, hilar, or axillary lymphadenopathy identified. The heart is normal in size. No pericardial effusion. Normal caliber esophagus. No evidence for an aortic dissection. The main pulmonary arteries are patent. There are few mildly enlarged anterior diaphragmatic lymph nodes measuring up to 15 mm. There is mild distal paraesophageal lymphadenopathy measuring up to 13 mm. Abdomen/pelvis CT: No pneumoperitoneum. No pneumatosis. No acute fractures identified. There are 2 punctate sclerotic foci within the right iliac crest measuring up to 3 mm. This is indeterminate but could represent bone islands. P atchy area of sclerosis within the right medial pubic bone measuring 2.5 cm. This is also indeterminate and could represent chronic degenerative change. An osteoblastic metastatic focus is not excluded. There are multiple scattered hypodense lesions seen throughout the liver. Dominant lesion within the right hepatic lobe measures 5 cm. These are consistent with metastatic lesions. The main portal vein is patent. The spleen, adrenal glands, and pancreas unremarkable. There is irregular gallbladder wall thickening likely representing metastatic disease. Trace ascites is noted. Right greater than left urothelial thickening within the ureters most pronounced distally. This is concerning for tumor involvement/metastatic disease. This results in mild bilateral hydronephrosis. There is a slightly delayed right nephrogram. Mild distal paraesophageal and gastrohepatic lymphadenopathy is noted. Normal caliber abdominal aorta. No pelvic lymphadenopathy. Bladder wall thickening is noted. The prostate gland is enlarged. Extensive nodularity within the omentum with areas of peritoneal thickening and trace ascites. This is consistent with peritoneal carcinomatosis. Multiple small scattered soft tissue nodules seen throughout the mesentery consistent with additional sites of peritoneal carcinomatosis. There is necrotic ileocolonic lymphadenopathy consistent with metastatic disease. There is a large soft tissue mass centered at the ileocecal valve which involves the terminal ileum and cecum. This is located within the right lower quadrant and is best seen on image 249. This measures 8.4 x 7.6 cm. There is mild dilatation of the distal ileum measuring up to 3.2 cm. This is suggestive of a developing partial small bowel obstruction secondary to this large mass. IMPRESSION: 1. There is an 8.4 x 7.6 cm soft tissue mass centered at the ileocecal valve which involves both the cecum and terminal ileum. There is extensive metastatic disease within the abdomen and pelvis as described above including peritoneal carcinomatosis and multiple hepatic metastases. Therefore, this could represent lymphoma or a primary colonic malignancy. 2. Urothelial thickening within the bilateral ureters most pronounced on the right. This favors metastatic disease and results in mild bilateral hydronephrosis. 3. Small right pleural effusion. 4. Mild dilatation of the distal ileum suggestive of a low-grade partial small bowel obstruction from the large cecal mass. 5. Patchy area of sclerosis within the right medial pubic bone measuring 2.5 cm. This is indeterminate and could be due to chronic degenerative change. An osteoblastic metastatic focus is not excluded. 6. There are 2 subcentimeter indeterminate groundglass nodules within the lungs with the largest measuring 7 mm. Follow-up recommended to ensure stability. 7. Additional findings as described above. ACT 112: Negative or not required by law. Electronically signed by: Darek Francois M.D. 02/21/2023 7:05 PM Scrotum Ultrasound 02/21/23 16:40 TESTICULAR ULTRASOUND HISTORY: right testicular pain COMPARISON: None. FINDINGS: Right testis: 39 x 25 x 23 mm. A 3 mm epididymal head cyst. There are no intratesticular masses. Normal color flow. No hydrocele.. Left testis: 43 x 29 x 22 mm. There are no intratesticular masses. Normal color flow. No hydrocele. The epididymis is unremarkable. Small fat-containing reducible left inguinal hernia. IMPRESSION: 1. Normal bilateral testes. 2. Small fat-containing reducible left inguinal hernia. ACT 112: Negative or not required by law. Electronically signed by: Darek Francois M.D. 02/21/2023 7:10 PM PG Care Time/CCT Total # of Minutes Spent Total Time Spent with Patient: Total time spent is greater than 50% in coordination of care (as documented) at patient's floor/unit and/or counseling patient: Coding Level of Care Code 23437 SUB INP/OBS CARE 3/50MIN Diagnoses Mass of colon K63.89 SBO (small bowel obstruction) K56.609 TABATHA (acute kidney injury) N17.9 Benign localized prostatic hyperplasia with lower urinary tract symptoms (LUTS) N40.1
[2023-02-22] MEDS: TAMSULOSIN HCL 0.4 MG CAP PO SCH (08:54)
[2023-02-22] MEDS: LACTATED RINGER'S 1,000 ML IV SCH ×3 (09:13→23:11)
--- NOTE | 2023-02-22 11:33 | Surgery Consultation ---
Date of Consultation February 22, 2023 Assessment & Plan (1) Cecum mass: I appreciate Dr. Guevara's input. However I think rather than attempt to biopsy it would be prudent to resect the ileocecal mass. I am concerned that this would cause a small bowel obstruction and/or bleeding/ perforation in the near future. Because of the size and location I am recommending a mild colon prep today with resection and primary anastomosis if possible tomorrow. I can also biopsy some of the liver metastases peritoneal seeding etc. at that time. We did discuss risk which include bleeding, infection, injury to other organs such as bowel ureter bladder etc., anastomotic leak or stricture, DVT, PE, NC, CVA etc. Following our discussion I answered he and his 's questions. They agree with the plan. I also discussed with the primary service. We will schedule him for an open right hemicolectomy and possible liver biopsy for tomorrow. (2) Peritoneal carcinomatosis: History of Present Illness Attending Physician: Eder Epstein MD History of Present Illness 62-year-old male who presented the emergency room with abdominal pain. He has been having issues for over a month which he originally thought may have had something to do with a prostate biopsy. Imaging through the emergency room unfortunately shows a large ileocecal mass as well as diffuse metastatic disease. He did recently have a negative Cologuard but has never had a colonoscopy. He does have a nephew that apparently from colorectal malignancy at a relatively young age. Currently he is not having any nausea or vomiting. He originally was having pain in the right lower quadrant but he now complains of pain in the left lower quadrant into his back. He does have about a 20 pound weight loss over the last month or so. Allergies Allergy/AdvReac Type Severity Reaction Status Date / Time No Known Allergies Allergy Verified 02/21/23 19:39 Home Medications Medication Instructions Recorded Confirmed Type tamsulosin 0.4 mg capsule 0.4 mg PO DAILY #30 caps 05/16/22 02/21/23 Rx doxycycline hyclate 100 mg tablet 100 mg PO BID #30 tabs 01/29/23 02/21/23 Rx ondansetron 4 mg disintegrating 4 mg PO Q6H PRN Nausea 02/21/23 02/21/23 History tablet Patient History Medical History Enlarged prostate Hypoxemia No acute medical problems Surgical History H/O prostate biopsy No pertinent past surgical history Family History Other Cancer Social History Smoking Status: Never smoker Hx Alcohol Use: Yes Alcohol type: beer Hx Substance Use: No Preferred Language: Bulgarian Communication Ability: Effective 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 Beliefs That Will Affect Care: None Current Living Situation: Spouse Feels Safe at Home: Yes Safety Concerns: Feels Safe At This Time Assistive Devices: None Review of Systems Review of Systems: All systems reviewed & are unremarkable except as noted in HPI & below Physical Exam Constitutional: WD/WN, vitals as above no acute distress and not ill appearing Eyes: PERRL, conjunctivae normal, anicteric sclerae EOM intact bilaterally ENMT: external ear and nose normal, oropharynx normal Ears: no hearing impairment Neck: trachea midline, no thyromegaly Respiratory: normal respiratory effort; no respiratory distress and does not use accessory muscles Cardiovascular: Rate/Rhythm: regular rate and regular rhythm Gastrointestinal (Abdomen): Soft. Minimal tenderness. Positive fullness in the right lower quadrant likely corresponding to the mass. Skin: no rashes, warm and dry Psychiatric: Orientation: alert, oriented x 3 and cooperative Results & Data Vital Signs (Past 12 Hours) Vital Signs Temp Pulse Resp BP Pulse Ox O2 Del Method 02/22/23 07:13 36.4 C L 83 16 160/94 H 95 Room Air PG Care Time/CCT Total # of Minutes Spent Total Time Spent with Patient: Total time spent is greater than 50% in coordination of care (as documented) at patient's floor/unit and/or counseling patient: Coding Level of Care Code 73354 IN/OBS CONSULT LVL 4,60M Diagnoses Cecum mass K63.89 Peritoneal carcinomatosis C78.6
--- NOTE | 2023-02-22 11:40 | Electrocardiogram Report ---
Test Reason : Blood Pressure : / mmHG Vent. Rate : 088 BPM Atrial Rate : 088 BPM P-R Int : 176 ms QRS Dur : 074 ms QT Int : 352 ms P-R-T Axes : 049 -21 -09 degrees QTc Int : 425 ms Normal sinus rhythm Possible Left atrial enlargement Nonspecific T wave abnormality Abnormal ECG When compared with ECG of 21-OCT-2020 21:17, Inverted T waves have replaced nonspecific T wave abnormality in Anterior leads Confirmed by Haider Jacob ([id number]) on 02/22/2023 11:39:48 AM Referred By: REFERRED SELF Confirmed By:Haider Jacob
--- NOTE | 2023-02-22 14:13 | Gastrointestinal Consultation ---
Date of Consultation February 22, 2023 History of Present Illness Attending Physician: Eder Epstein MD History of Present Illness Pt with 1 month h/o bloating, RUQ pain, weight loss found to have large abraham- cecal mass with low grade SBO and possible peritoneal carcinomatosis, liver mets on imaging in ER. Has occasioanl straining with BM, but denies persistent constipation. Cologuard done in Jul,. Labs on admit, including hgb, LFT's and cEA unremarkble except for AP 172 and LDH 387. Seen by surgery, awaiting hemicolectomyu tomrrow. On exam, he is comfortable. Abd exam shows mass in RLQ. No cervical, ax or inguinl LAD. No sarcopenia. A/P: Pericecal mass - lymphoma vs CRC. No symptoms of obstruction, but is at high risk for this geivn large cecal mass. Will discuss possible LAMS with adv GI and surgery. Allergies Allergy/AdvReac Type Severity Reaction Status Date / Time No Known Allergies Allergy Verified 02/21/23 19:39 Home Medications Medication Instructions Recorded Confirmed Type tamsulosin 0.4 mg capsule 0.4 mg PO DAILY #30 caps 05/16/22 02/21/23 Rx doxycycline hyclate 100 mg tablet 100 mg PO BID #30 tabs 01/29/23 02/21/23 Rx ondansetron 4 mg disintegrating 4 mg PO Q6H PRN Nausea 02/21/23 02/21/23 History tablet Patient History Medical History Enlarged prostate Hypoxemia No acute medical problems Surgical History H/O prostate biopsy No pertinent past surgical history Family History Other Cancer Social History Smoking Status: Never smoker Hx Alcohol Use: Yes Alcohol type: beer Hx Substance Use: No Preferred Language: Estonian Communication Ability: Effective Fitness Manager Required: No Beliefs That Will Affect Care: None Current Living Situation: Spouse Feels Safe at Home: Yes Safety Concerns: Feels Safe At This Time Assistive Devices: None Results & Data Vital Signs (Past 12 Hours) Vital Signs Temp Pulse Resp BP Pulse Ox O2 Del Method 02/22/23 07:13 36.4 C L 83 16 160/94 H 95 Room Air
[2023-02-22] MEDS: POLYETHYLENE (MIRALAX) 17 GM PACK PO SCH (17:58)
[2023-02-22] MEDS ORDERED: MoRPHine SULFATE 2 MG/ML CARP IV STA (19:14)
--- NOTE | 2023-02-22 19:49 | Communication Note ---
Date of Service: February 22, 2023 This is a 62-year-old male who has been admitted to [facility]. CT scan of his abdomen pelvis showed the patient had concern for soft t issue mass at the ileocecal valve involving the cecum and terminal ileum. It scants of metastatic disease was noted within the abdomen and pelvis including peritoneal carcinomatosis and multiple hepatic metastases. Interpreting radiologist felt that this could represent lymphoma or primary colonic malignancy. The patient has been seen in consultation by Dr. Sergio Recio who is tentatively planning on performing a right hemicolectomy on 02/23/2023. I was asked to see the patient this evening on Dr. Recio's behalf as he had a recent discussion with the patient's jacker, Dr. Laura. Due to the possibility that the findings on CT scan could represent a lymphoma, Dr. Laura felt that tissue diagnosis would be the best course of action prior than performing Dr. Recio's planned surgery. Dr. Recio notes that in the morning on 02/23/2023 he will contact our interventional radiology colleagues to see if they can form a needle biopsy and obtain a tissue diagnosis. He notes that further planning will be based on the results of his discussion with with interventional radiology as well as the results of any procedures performed. I visited with the patient at the bedside this evening and notified him of this plan and at the patient's request I also discussed with his via phone.
[2023-02-22] MEDS: ONDANSETRON INJ 2 MG/ML 2 ML VIAL IV PRN (20:34)
[2023-02-22] MEDS ORDERED: HEPARIN SOD 5,000 UNIT/0.5 ML VIAL SQ ONE (21:00)
[2023-02-23] MEDS: MoRPHine SULFATE 2 MG/ML CARP IV PRN (04:24)
[2023-02-23] MEDS: LACTATED RINGER'S 1,000 ML IV SCH ×2 (05:36→12:50)
[2023-02-23] MEDS: POLYETHYLENE (MIRALAX) 17 GM PACK PO SCH (06:07)
[2023-02-23] MEDS: ONDANSETRON INJ 2 MG/ML 2 ML VIAL IV PRN (07:04)
[2023-02-23 07:16] LABS: Hematocrit (blood only) 35.3 % (42.0-52.0); Hemoglobin 12.1 g/dl (14.0-18.0); Mean Corpuscular Hemoglobin 30.6 pg (25.0-34.0); Mean Corpuscular Hgb Conc 34.3 g/dL (32.0-36.0); Mean Corpuscular Volume 89.4 fL (80.0-100.0); Mean Platelet Volume 9.9 fL (9.4-12.4); Platelet Count 229 K/uL (130-400); RDW Coefficient of Variation 12.4 % (11.5-14.5); RDW Standard Deviation 41.2 fL (36.4-46.3); Red Blood Count 3.95 M/uL (4.70-6.10); White Blood Count 6.44 K/ul (4.8-10.8)
[2023-02-23 07:37] LABS: Albumin Globulin Ratio 1.4 (0.9-2); Albumin Level 3.3 gm/dl (3.4-5.0); Bilirubin,Total 0.8 mg/dl (0.2-1.0); Calcium 8.8 mg/dl (8.6-10.3); Est GFR (African American) 53.5 ml/min; Est GFR (Non-African American) 46.2 ml/min; Globulin 2.4 gm/dl (2.5-4.0); Magnesium 1.5 mg/dl (1.7-2.4); Potassium 4.2 mmol/L (3.5-5.1); Total Protein 5.7 gm/dl (6.0-8.3)
--- NOTE | 2023-02-23 08:09 | Hospitalist Progress Note ---
Date of Service February 23, 2023 Assessment & Plan (1) Mass of colon: Plan: 62yo male presenting with approximately 1 month of abdominal pain, early satiety and unintentional weight loss. Unfortunately, CT with 8.4 x 7.6 cm soft tissue mass at the ileocecal valve involving the cecum and terminal ileum concerning for malignancy - lymphoma vs primary GI. Evidence of metastatic disease to include peritoneal carcinomatosis, hepatic masses, urothelial thickening within b/l ureters most pronounced on right, resulting in mild b/l hydronephrosis and possible osteoblastic focus of right medial pubic bone. Also with 2 subcentimeter indeterminate groundglass nodules of the lung. Mild dilatation of the distal ileum suggestive of a low-grade partial small bowel obstruction from the large cecal mass. Admit to medical Oncology consultation appreciated - imaging suggestive of colon ca w/ extensive metastases. Nephew from colon ca, ?genetic component. -Rec colonoscopy w/ biopsy of cecal mass or IR guided liver biopsy. -CEA obtained -- no significant elevation 0.6 which raises concerns for more of a lymphoma picture -May need diversion w/ ileostomy if obstructive symptom do not improved. Defer to surgery/GI. -They plan to see after bx to discuss treatment options -LDH elevated, noting prior elevated PSA to 11s in Jul 2022 as well General surgery, GI consulted Remains on IVF LR @ 100cc/hr --> increased to 150cc/hr given elevated Cr and miralax being ordered for bowel prep. Cr improved 1.58 Given clear liquids 02/22, NPO at midnight for surgery for R hemicolectomy today as well as biopsy of the liver/peritoneal seeding/etc with Dr Recio however per further discussion and possible Lymphoma, we are planning for IR biopsy/darden on results and if lymphoma, possible chemo but otherwise if negative for lymphoma will plan for surgery later this week once bx results are back Pain control/antiemetics prn DVT proph: Lovenox SQ ordered on admission, given dose already. Given his renal dysfunction will place further lovenox on hold, given Heparin SQ last evening x 1 and will hold further for today given IR/biopsy. Utilizing SCDs in meantime (2) SBO (small bowel obstruction): Plan: Findings as above with concern for partial SBO secondary to obstructing mass. Patient with no nausea, minimal abdominal pain, no distention. He reports having a normal BM 02/20 Bowel prep overnight 8/13, +BM this morning general surgery consulted, IVF as outlined, NPO for above. +BS on exam (3) TABATHA (acute kidney injury): Plan: Elevation of BUN and Cr from baseline. Patient reports normal UOP. Patient received a dose of Ceftriaxone for possible UTI. No bacteria. No urinary complaints. No further abx at this time Urine na/cr obtained Cr improved w/ increased IVF No significant post-void residual, was ~70s yesterday No further lovenox as above Renal dose meds/avoid nephrotoxins BMP in AM (4) Benign localized prostatic hyperplasia with lower urinary tract symptoms (LUTS): Plan: Chronic. Stable reported output. No significant PVR as above -Continue Flomax (5) Hypomagnesemia: Plan: checked w/ SBO -- low 1.5 today, IV replacement ordered and will monitor labs in AM (6) Cecum mass: Plan: as above, new -- plan for IR/bx today. Treatment pending pathology (7) Peritoneal carcinomatosis: Plan: concerning for metastatic disease. Source TBD, bx as above Plan continued inpatient stay, NPO for IR/bx this afternoon 1:30pm Pending pathology if lymphoma, plan will be with chemo w/ heme/onc vs surgery later this week with Dr Recio Monitor labs in AM Admission and Anticipated Discharge Date Admission Date: February 21, 2023 Supervising Physician Co-Signing Physician Notes PA Supervision Note: I did not personally see or examine the patient. I verified all gonsalves points and agree with YANETH Contreras with the following exceptions and/or additions: Since note signed, case discussed with Dr. Guevara, pathology likely lymphoma rather than colon primary malignancy, but further testing still pending. May need induction chemo this admission. Plan for bone marrow biopsy tomorrow if able to be arranged. Will give dexamethasone 40mg IV x1 today, and start allopurinol for TLS ppx. Subjective Eval this morning, getting cleaned up in the bathroom. States little rough last night, nausea and vomiting with the prep. Reported given medications and morphine for pain and improved but made him a little sleepy. Just had BM this morning and reports feeling much better after that. Planning for surgery around 1pm, will keep them posted. Discussed w/ surgery and plan with discussion w/ GI/oncology for possible IR for percutaneous biopsy and try to put darden on results but if lymphoma will attempt chemo for treatment but otherwise plan for surgery later this week. Physical Exam Physical Exam: General: WD/WN male getting washed up, at bedside, NAD HEENT: head normocephalic, pupils equal in size, mm improved, trachea midline Resp: CTA, no w/c/r, on room air CV: RRR, no significant m/r/g, no pitting edema/calf tenderness GI: +BS throughout, RLQ fullness, no guarding/rebound : no joseph MSK/Neuro: no focal deficits, no slurred speech/facial droop, follows commands Psych:AOX3, cooperative with examination Results & Data Results & Data Vital Signs (Past 12 Hours) Vital Signs Temp Pulse Resp BP Pulse Ox O2 Del Method 02/23/23 06:34 36.5 C 78 18 155/89 H 96 Room Air Laboratory Results 02/23/23 02/23/23 02/23/23 Range/Units 07:34 06:25 06:25 WBC 6.44 (4.8-10.8) K/ul RBC 3.95 L (4.70-6.10) M/uL Hgb 12.1 L (14.0-18.0) g/dl Hct 35.3 L (42.0-52.0) % MCV 89.4 (80.0-100.0) fL MCH 30.6 (25.0-34.0) pg MCHC 34.3 (32.0-36.0) g/dL RDW Std Deviation 41.2 (36.4-46.3) fL RDW Coeff of [place] 12.4 (11.5-14.5) % Plt Count 229 (130-400) K/uL MPV 9.9 (9.4-12.4) fL PT 12.0 (9.0-12.0) Seconds INR 1.1 (0.9-1.1) APTT 30.8 (21.0-31.0) Seconds PTT Ratio 1.1 Sodium 141 (136-145) mmol/L Potassium 4.2 (3.5-5.1) mmol/L Chloride 103 (98-107) mmol/L Carbon Dioxide 27 (21-32) mmol/L Anion Gap 11 (3-11) BUN 19 (6-23) mg/dl Creatinine 1.58 H (0.6-1.4) mg/dl Est Cr Clr Drug Dosing 49.0 ml/min Est GFR ( Amer) 53.5 ml/min Est GFR (Non-Af Amer) 46.2 ml/min BUN/Creatinine Ratio 12.0 (10-20) Glucose 65 L (70-99(Fasting)) mg/dl Calcium 8.8 (8.6-10.3) mg/dl Magnesium 1.5 L (1.7-2.4) mg/dl Total Bilirubin 0.8 (0.2-1.0) mg/dl AST 32 (13-39) U/L ALT 28 (7-52) U/L Alkaline Phosphatase 144 H (34-104) U/L Total Protein 5.7 L (6.0-8.3) gm/dl Albumin 3.3 L (3.4-5.0) gm/dl Globulin 2.4 L (2.5-4.0) gm/dl Albumin/Globulin Ratio 1.4 (0.9-2) PG Care Time/CCT Total # of Minutes Spent Total Time Spent with Patient: Total time spent is greater than 50% in coordination of care (as documented) at patient's floor/unit and/or counseling patient: Coding Level of Care Code 87421 SUB INP/OBS CARE 3/50MIN Diagnoses Mass of colon K63.89 SBO (small bowel obstruction) K56.609 TABATHA (acute kidney injury) N17.9 Benign localized prostatic hyperplasia with lower urinary tract symptoms (LUTS) N40.1 Hypomagnesemia E83.42 Cecum mass K63.89 Peritoneal carcinomatosis C78.6
[2023-02-23 08:15] LABS: INR 1.1 (0.9-1.1); Partial Thromboplastin Ratio 1.1; Partial Thromboplastin Time 30.8 Seconds (21.0-31.0)
--- NOTE | 2023-02-23 08:59 | Surgery Progress Note ---
Date of Service February 23, 2023 Assessment & Plan (1) Cecum mass: Plan: Had a discussion with Dr. Laura from GI last night as well as Dr. Guevara this morning. We will hold on right hemicolectomy today and interventional radiology will be performing a percutaneous biopsy. We will try and put a darden on these results. Is important that we keep him on clear liquids only as I suspect he will still likely need operative intervention unless the pathology report comes back consistent with lymphoma. We discussed all this with the patient and he agrees. We will proceed with percutaneous biopsy today and will plan treatment accordingly following the results. (2) Peritoneal carcinomatosis: Admission and Anticipated Discharge Date Admission Date: February 21, 2023 Subjective Patient seen. Had some difficulty with the prep. He did vomit once and has not had any bowel movements yet. Physical Exam Physical Exam: Patient mildly nauseated currently Constitutional: WD/WN, vitals as above no acute distress and not ill appearing Eyes: PERRL, conjunctivae normal, anicteric sclerae EOM intact bilaterally ENMT: external ear and nose normal, oropharynx normal Ears: no hearing impairment Neck: trachea midline, no thyromegaly Respiratory: normal respiratory effort; no respiratory distress and does not use accessory muscles Cardiovascular: Rate/Rhythm: regular rate and regular rhythm Gastrointestinal (Abdomen): Soft. Minimal tenderness. No guarding Skin: no rashes, warm and dry Psychiatric: Orientation: alert, oriented x 3 and cooperative Results & Data Vital Signs (Past 12 Hours) Vital Signs Temp Pulse Resp BP Pulse Ox O2 Del Method 02/23/23 06:34 36.5 C 78 18 155/89 H 96 Room Air PG Care Time/CCT Total # of Minutes Spent Total Time Spent with Patient: Total time spent is greater than 50% in coordination of care (as documented) at patient's floor/unit and/or counseling patient: Coding Level of Care Code 02138 SUB INP/OBS CARE 3/50MIN Diagnoses Cecum mass K63.89 Peritoneal carcinomatosis C78.6
[2023-02-23] MEDS: MAGNESIUM SULFATE / D5W 1 GM/100 ML BAG IV SCH ×3 (09:34→15:22)
[2023-02-23] MEDS: TAMSULOSIN HCL 0.4 MG CAP PO SCH (09:34)
[2023-02-23] MEDS ORDERED: GELATIN SPONGE 12-7MM ONE (13:20)
[2023-02-23] MEDS ORDERED: fentaNYL citrate PF 100 MCG/2 ML VIAL ONE (13:20)
[2023-02-23] MEDS ORDERED: DEXAMETHASONE SOD INJ 4 MG/ML VIAL IV STA (14:52)
--- NOTE | 2023-02-23 14:54 | Communication Note ---
Date of Service: February 23, [address] Guevara, appears bx more likely a lymphoma but awaiting further testing/stain. Instructed to given Dexamethason 40mg IV x 1 today, she is checking uric acid. Plan to start allopurinol 300mg PO daily for tomorrow. Will plan for bone marrow biopsy for tomorrow once she discusses with family/IR provider, then will place order for such. Likely start inpatient chemo pending further testing on biopsy
[2023-02-23] MEDS ORDERED: dexAMETHasone 40 MG in DEXTROSE 5% 25 ML IV ONE (15:30)
--- NOTE | 2023-02-23 16:13 | Ultrasound Report ---
Ultrasound guided right lobe liver lesion core biopsy INDICATION: Multiple hepatic lesions; large cecal mass PROCEDURE: Procedure and risks were explained. Informed consent was obtained. A final timeout was com pleted. The right upper quadrant was prepped and draped in sterile fashion. 1% buffered lidocaine was utilized for skin anesthesia. Utilizing ultrasound guidance, a 17-gauge coaxial needle was advanced into the right lobe liver lesio n. Ultrasound images were obtained. An 18-gauge core biopsy needle was advanced, and 3 cores were obt ained and given to the pathologist. The coaxial needle was removed after injecting a Gelfoam slurry a nd Band-Aid applied. The patient tolerated the procedure well. Vital signs will be monitored postproc edure. IMPRESSION: Liver lesion core biopsy as above. Performed, dictated, and signed by Sachin Crawford PA-C; to be co-signed by Dr. Miki Jackson. Electronically signed by: Miki Jackson M.D. 02/24/2023 10:27 AM
[2023-02-23] MEDS ORDERED: allopurinoL 300 MG TAB PO ONE (16:32)
--- NOTE | 2023-02-23 16:41 | Hematology/Oncology Prog Note ---
Date of Service February 23, 2023 Assessment & Plan (1) Cecum mass: (2) Peritoneal carcinomatosis: (3) SBO (small bowel obstruction): Plan Preliminary pathology suggestive of possible B-cell lymphoma. Awaiting IHC and FISH. If IHC confirms B-cell lymphoma, plan to treat inpatient with [facility] chemotherapy. -Start dexamethasone 40 mg IV daily -Start allopurinol 300 mg p.o. daily for TLS prophylaxis -Recommend bone marrow biopsy for staging purposes -Obtain 2D echocardiogram prior to anthracycline exposure -Arrange for Mediport/PICC placement in anticipation of inpatient chemotherapy -Patient will likely follow-up with Dr. Pyle of hematology in [place] for continuation of treatment after discharge from hospital. Consider Bhupinder Hughes [facility] outpatient due to aggressiveness of disease Admission and Anticipated Discharge Date Admission Date: February 21, 2023 Subjective He underwent core liver biopsy today. Preliminary pathology suggestive of B- cell lymphoma. Still awaiting IHC and FISH. Results & Data Vital Signs (Past 12 Hours) Vital Signs Temp Pulse Resp BP Pulse Ox O2 Del Method 02/23/23 06:34 36.5 C 78 18 155/89 H 96 Room Air
--- NOTE | 2023-02-23 16:45 | Communication Note ---
Date of Service: February 23, [address] Guevara this evening, plans to discuss with Dr Recio about placement of port for tomorrow. Will make NPO at midnight just in case Patient does want to follow up closer to home/Comfort/family undergone treatment with Dr Owen Pyle [facility] and will start inpatient chemo hopefully Thursday if port placed tomorrow and they can coordinate ongoing treatment outpatient. Also, obtaining ECHO prior to starting chemo, order placed. Uric acid pending but Dr Guevara would like to start first dose allopurinol tonight. Patient already received dose IV dexamethasone 40mg as instructed by heme/onc. Given need for PET scan outpatient, will defer to Dr Guevara/Dr Pyle in follow up about obtaining brain MRI given lymphoma can have RELIEF CHARGE NURSE involvement but per Dr Guevara ok to hold off for now.
[2023-02-23 17:58] LABS: Uric Acid 13.8 mg/dl (2.6-7.2)
[2023-02-24] MEDS: LACTATED RINGER'S 1,000 ML IV SCH ×6 (00:30→21:09)
[2023-02-24 07:13] LABS: Hematocrit (blood only) 37.7 % (42.0-52.0); Mean Corpuscular Hemoglobin 30.7 pg (25.0-34.0); Mean Corpuscular Hgb Conc 34.5 g/dL (32.0-36.0); Mean Corpuscular Volume 89.1 fL (80.0-100.0); Mean Platelet Volume 9.9 fL (9.4-12.4); Platelet Count 271 K/uL (130-400); RDW Coefficient of Variation 12.3 % (11.5-14.5); RDW Standard Deviation 39.8 fL (36.4-46.3); Red Blood Count 4.23 M/uL (4.70-6.10); White Blood Count 3.93 K/ul (4.8-10.8)
[2023-02-24 07:31] LABS: Albumin Globulin Ratio 1.3 (0.9-2); Albumin Level 3.7 gm/dl (3.4-5.0); BUN Creatinine Ratio 17.5 (10-20); Bilirubin,Total 0.6 mg/dl (0.2-1.0); Calcium 9.1 mg/dl (8.6-10.3); Creatinine Clr Calc Pharmacy 50.2 ml/min; Est GFR (African American) 55.2 ml/min; Est GFR (Non-African American) 47.6 ml/min; Globulin 2.8 gm/dl (2.5-4.0); Magnesium 2.1 mg/dl (1.7-2.4); Potassium 4.6 mmol/L (3.5-5.1); Total Protein 6.5 gm/dl (6.0-8.3)
[2023-02-24] MEDS: TAMSULOSIN HCL 0.4 MG CAP PO SCH (08:05)
--- NOTE | 2023-02-24 08:19 | Hospitalist Progress Note ---
Date of Service February 24, 2023 Assessment & Plan (1) Mass of colon: Plan: 62yo male presenting with approximately 1 month of abdominal pain, early satiety and unintentional weight loss. Unfortunately, CT with 8.4 x 7.6 cm soft tissue mass at the ileocecal valve involving the cecum and terminal ileum concerning for malignancy - lymphoma vs primary GI. Evidence of metastatic disease to include peritoneal carcinomatosis, hepatic masses, urothelial thickening within b/l ureters most pronounced on right, resulting in mild b/l hydronephrosis and possible osteoblastic focus of right medial pubic bone. Also with 2 subcentimeter indeterminate groundglass nodules of the lung. Mild dilatation of the distal ileum suggestive of a low-grade partial small bowel obstruction from the large cecal mass. Admit to medical Oncology consultation appreciated - imaging suggestive of colon ca w/ extensive metastases. Nephew from colon ca, ?genetic component, HOWEVER CEA not elevated, raising concerns for possibly Lymphoma -LDH elevated, noting prior elevated PSA to 11s in Jul 2022 as well General surgery, GI consulted IVF increased to 150cc/hr given elevated Cr/miralax for bowel prep, however further discussion w/ surgery and GI decided AGAINST resection and proceeded with IR bx liver lesion/[place] pathology Discussed path 02/[address] Guevara, appears to be Lymphoma (final path pending/further testing/stains in process) Given Dexamethasone 40mg IV x 1 02/[address] Guevara, started allopurinol 300mg daily (uric acid 13.8 resulted back at - notified heme/onc) Increased allopurinol to 300mg BID (uric acid 12.6 this morning) Repeat uric acid this afternoon, possible start rasburicase Remains on IVF @ 100cc/hr, increased to 125cc/hr NPO for PORT placement AM 02/[address] Rosen, possible bone marrow biopsy with IR ECHO completed this morning -- read pending DVT proph: Lovenox SQ ordered on admission. Given his renal dysfunction will place further lovenox on hold, given Heparin SQ evening x 1 02/22 and holding further for port placement today. SCDs in meantime Labs this afternoon given uric acid, and in morning Possible start chemo TOMORROW 02/25 (2) SBO (small bowel obstruction): Plan: Findings as above with concern for partial SBO secondary to obstructing mass. Patient with no nausea, minimal abdominal pain, no distention. He reports having a normal BM 02/20 Bowel prep overnight 02/22, +BM AM 02/23, again this morning 02/24 reported loose BM general surgery consulted, IVF as outlined, NPO for above. +BS on exam (3) TABATHA (acute kidney injury): Plan: Elevation of BUN and Cr from baseline. Patient reports normal UOP. Patient received a dose of Ceftriaxone for possible UTI. No bacteria. No urinary complaints. No further abx at this time Urine na/cr obtained Cr improved w/ increased IVF but decreased back yesterday as given diet to 100cc/hr Uric acid elevated as above, concerning TLS. check phos, increase allopurinol as above and IVF to 125cc/hr for now No significant post-void residual, was ~70cc No further lovenox as above Renal dose meds/avoid nephrotoxins BMP in AM (4) Benign localized prostatic hyperplasia with lower urinary tract symptoms (LUTS): Plan: Chronic. Stable reported output. No significant PVR as above -Continue Flomax (5) Hypomagnesemia: Plan: checked w/ SBO -- low 1.5 today, IV replacement ordered and 2.1 on repeat labs (6) Cecum mass: Plan: as above, new -- IR bx of liver lesion as above, path concerning for lymphoma per discussion w/ heme/onc tx as outlined above, needing bone marrow biopsy, ECHO, port placement (for today) Treatment pending final path for tomorrow (7) Peritoneal carcinomatosis: Plan: concerning for metastatic disease. Source TBD, bx as above Plan NPO for port placement today, possible bone marrow biopsy (messaged Sergio Crawford from IR for discussion on timing for today) ECHO done this morning -- monitor read Increased allopurinol to BID, recheck levels this afternoon and possible need for rasburicase Admission and Anticipated Discharge Date Admission Date: February 21, 2023 Supervising Physician Co-Signing Physician Notes PA Supervision Note: I did not personally see or examine the patient. I verified all gonsalves points and agree with YANETH Contreras with the following exceptions and/or additions: none Subjective eval this morning, sitting up in bed, wondering when port placement is/bone marrow biopsy/ stated had BM, loose this AM. Pain controlled. Discussed uric acid/allopurinol, repeat labs. He had ECHO completed this morning. If everything arranged possible start chemo for tomorrow. Discussed outpatient follow up and he notes today he may want to consider continuing treatment here as he has home in [place] but will see how he does and let us know. Wanting to get showered, bringing in his razor. Will place order for shower. No chest pain, shortness of breath. No further nausea/vomiting. Questions/concern addressed at this time. Physical Exam Physical Exam: General: WD/WN male sitting up in bed, NAD HEENT: head normocephalic, pupils equal in size, mm improved, trachea midline Resp: CTA, no w/c/r, on room air CV: RRR, no significant m/r/g, no pitting edema/calf tenderness GI: +BS throughout, slight distension/RLQ fullness, no guarding/rebound : no joseph MSK/Neuro: no focal deficits, no slurred speech/facial droop, follows commands Psych:AOX3, cooperative with examination Results & Data Results & Data Vital Signs (Past 12 Hours) Vital Signs Temp Pulse Resp BP Pulse Ox O2 Del Method 02/24/23 07:59 36.7 C 67 19 157/84 H 91 Room Air 02/24/23 03:25 36.6 C 91 H 18 146/84 H 94 Room Air 02/23/23 23:14 36.8 C 76 18 163/92 H 93 Room Air 02/23/23 20:17 36.8 C 80 18 152/90 H 94 Room Air Laboratory Results 02/24/23 02/24/23 02/23/23 Range/Units 06:19 06:19 14:25 WBC 3.93 L (4.8-10.8) K/ul RBC 4.23 L (4.70-6.10) M/uL Hgb 13.0 L (14.0-18.0) g/dl Hct 37.7 L (42.0-52.0) % MCV 89.1 (80.0-100.0) fL MCH 30.7 (25.0-34.0) pg MCHC 34.5 (32.0-36.0) g/dL RDW Std Deviation 39.8 (36.4-46.3) fL RDW Coeff of [place] 12.3 (11.5-14.5) % Plt Count 271 (130-400) K/uL MPV 9.9 (9.4-12.4) fL PT (9.0-12.0) Seconds INR (0.9-1.1) APTT (21.0-31.0) Seconds PTT Ratio Sodium 137 (136-145) mmol/L Potassium 4.6 (3.5-5.1) mmol/L Chloride 98 (98-107) mmol/L Carbon Dioxide 27 (21-32) mmol/L Anion Gap 12 H (3-11) BUN 27 H (6-23) mg/dl Creatinine 1.54 H (0.6-1.4) mg/dl Est Cr Clr Drug Dosing 50.2 ml/min Est GFR ( Amer) 55.2 ml/min Est GFR (Non-Af Amer) 47.6 ml/min BUN/Creatinine Ratio 17.5 (10-20) Glucose 180 H (70-99(Fasting)) mg/dl Uric Acid (2.6-7.2) mg/dl Calcium 9.1 (8.6-10.3) mg/dl Magnesium 2.1 (1.7-2.4) mg/dl Total Bilirubin 0.6 (0.2-1.0) mg/dl AST 35 (13-39) U/L ALT 31 (7-52) U/L Alkaline Phosphatase 154 H (34-104) U/L Total Protein 6.5 (6.0-8.3) gm/dl Albumin 3.7 (3.4-5.0) gm/dl Globulin 2.8 (2.5-4.0) gm/dl Albumin/Globulin Ratio 1.3 (0.9-2) Flow Cytometry Comment Pending 02/23/23 02/23/23 Range/Units 07:34 06:25 WBC (4.8-10.8) K/ul RBC (4.70-6.10) M/uL Hgb (14.0-18.0) g/dl Hct (42.0-52.0) % MCV (80.0-100.0) fL MCH (25.0-34.0) pg MCHC (32.0-36.0) g/dL RDW Std Deviation (36.4-46.3) fL RDW Coeff of [place] (11.5-14.5) % Plt Count (130-400) K/uL MPV (9.4-12.4) fL PT 12.0 (9.0-12.0) Seconds INR 1.1 (0.9-1.1) APTT 30.8 (21.0-31.0) Seconds PTT Ratio 1.1 Sodium (136-145) mmol/L Potassium (3.5-5.1) mmol/L Chloride (98-107) mmol/L Carbon Dioxide (21-32) mmol/L Anion Gap (3-11) BUN (6-23) mg/dl Creatinine (0.6-1.4) mg/dl Est Cr Clr Drug Dosing ml/min Est GFR ( Amer) ml/min Est GFR (Non-Af Amer) ml/min BUN/Creatinine Ratio (10-20) Glucose (70-99(Fasting)) mg/dl Uric Acid 13.8 H (2.6-7.2) mg/dl Calcium (8.6-10.3) mg/dl Magnesium (1.7-2.4) mg/dl Total Bilirubin (0.2-1.0) mg/dl AST (13-39) U/L ALT (7-52) U/L Alkaline Phosphatase (34-104) U/L Total Protein (6.0-8.3) gm/dl Albumin (3.4-5.0) gm/dl Globulin (2.5-4.0) gm/dl Albumin/Globulin Ratio (0.9-2) Flow Cytometry Comment Diagnostic Findings Liver Biopsy Ultrasound 02/23/23 09:15 Ultrasound guided right lobe liver lesion core biopsy INDICATION: Multiple hepatic lesions; large cecal mass PROCEDURE: Procedure and risks were explained. Informed consent was obtained. A final timeout was completed. The right upper quadrant was prepped and draped in sterile fashion. 1% buffered lidocaine was utilized for skin anesthesia. Utilizing ultrasound guidance, a 17-gauge coaxial needle was advanced into the right lobe liver lesion. Ultrasound images were obtained. An 18-gauge core biopsy needle was advanced, and 3 cores were obtained and given to the pathologist. The coaxial needle was removed after injecting a Gelfoam slurry and Band-Aid applied. The patient tolerated the procedure well. Vital signs will be monitored postprocedure. IMPRESSION: Liver lesion core biopsy as above. Performed, dictated, and signed by Sachin Crawford PA-C; to be co-signed by Dr. Miki Jackson. ECHOCARDIOGRAM PG Care Time/CCT Total # of Minutes Spent Total Time Spent with Patient: Total time spent is greater than 50% in coordination of care (as documented) at patient's floor/unit and/or counseling patient: Coding Level of Care Code 57531 SUB INP/OBS CARE 3/50MIN Diagnoses Mass of colon K63.89 SBO (small bowel obstruction) K56.609 TABATHA (acute kidney injury) N17.9 Benign localized prostatic hyperplasia with lower urinary tract symptoms (LUTS) N40.1 Hypomagnesemia E83.42 Cecum mass K63.89 Peritoneal carcinomatosis C78.6
[2023-02-24] MEDS ORDERED: allopurinoL 300 MG TAB PO SCH (09:00)
[2023-02-24 09:12] LABS: Phosphorus 6.1 mg/dl (2.5-4.9); Uric Acid 12.6 mg/dl (2.6-7.2)
--- NOTE | 2023-02-24 09:53 | Anesthesiology Consultation ---
Date of Service February 24, 2023 Assessment & Plan Chart Review Chart Review: blade aligner initiated History Surgery Operation Date: 02/23/23 07:50 Proposed Procedures p Right Hemicolectomy, Possible Liver Biopsy - Sachin Recio DO Operation Date: 02/24/23 07:00 Proposed Procedures p Access Port Insertion - Cristhian Rosen DO Height/Weight Height: 5 ft 7 in Weight: 79.4 kg Allergies Allergy/AdvReac Type Severity Reaction Status Date / Time No Known Allergies Allergy Verified 02/21/23 19:39 Medications Home Medications Medication Instructions Recorded Confirmed Last Taken tamsulosin 0.4 mg capsule 0.4 mg PO DAILY #30 caps 05/16/22 02/21/23 02/20/23 doxycycline hyclate 100 mg tablet 100 mg PO BID #30 tabs 01/29/23 02/21/23 02/20/23 ondansetron 4 mg disintegrating 4 mg PO Q6H PRN Nausea 02/21/23 02/21/23 tablet Active Medications Generic Name Dose Route Start Last Admin Trade Name Joelq PRN Reason Stop Dose Admin Lactated Ringer's 1,000 mls @ 125 mls/hr 02/21/23 22:32 02/24/23 08:38 Lr IV 03/23/23 22:31 125 mls/hr .Q8H JESUS Administration Morphine Sulfate 2 mg 02/21/23 22:56 02/23/23 04:24 Morphine Sulfate 2 Mg/Ml Carp IV 03/07/23 22:55 2 mg Q3H PRN Administration Pain (6,7,8,9,10) Ondansetron HCl 4 mg 02/21/23 22:32 02/23/23 07:04 Ondansetron Inj 2 Mg/Ml 2 Ml Vial IV 03/23/23 22:31 4 mg Q6H PRN Administration Nausea And Vomiting Tamsulosin HCl 0.4 mg 02/22/23 09:00 02/24/23 08:05 Tamsulosin Hcl 0.4 Mg Cap PO 03/24/23 08:59 0.4 mg DAILY JESUS Administration NPO Date Last Intake of Fluids: 02/23/23 Time Last Intake of Fluids: 07:15 Last Intake of Fluids Comment: on bowel prep, unable to complete Date Last Intake of Solids: 02/22/23 Past Medical History Medical History Enlarged prostate Hypoxemia No acute medical problems Past Family History Family History Other Cancer Past Surgical History Surgical History H/O prostate biopsy No pertinent past surgical history Social History Smoking Status: Never smoker Hx Alcohol Use: Yes Alcohol type: beer alcohol intake frequency: holidays/special occasions only Hx Substance Use: No substance use type: does not use Physical Exam Vital Signs Last Vital Signs Temp 98.1 F 02/24/23 07:59 Pulse 67 02/24/23 07:59 Resp 19 02/24/23 07:59 BP 157/84 H 02/24/23 07:59 Pulse Ox 91 02/24/23 07:59 O2 Del Method Room Air 02/24/23 07:59 Testing Laboratory Results 02/24/23 06:19 02/24/23 06:19 PT 12.0 Seconds (9.0-12.0) 02/23/23 07:34 INR 1.1 (0.9-1.1) 02/23/23 07:34 APTT 30.8 Seconds (21.0-31.0) 02/23/23 07:34 Urine Color Yellow 02/21/23 16:52 Urine Appearance Cloudy (Clear) A 02/21/23 16:52 Urine pH 5.0 (4.5-7.5) 02/21/23 16:52 Ur Specific [place] 1.013 (1.000-1.030) 02/21/23 16:52 Urine Protein 1+ (Negative) H 02/21/23 16:52 Urine Glucose (UA) Negative (Negative) 02/21/23 16:52 Urine Ketones Negative (Negative) 02/21/23 16:52 Urine Nitrite Negative (Negative) 02/21/23 16:52 Ur Leukocyte Esterase 2+ (Negative) H 02/21/23 16:52 Urine WBC (Auto) >30 /hpf (0-5) H 02/21/23 16:52 Urine RBC (Auto) 0-4 /hpf (0-4) 02/21/23 16:52 U Hyaline Cast (Auto) 1-5 /lpf (0-5) 02/21/23 16:52 U Epithel Cells (Auto) >30 /lpf (0-5) H 02/21/23 16:52 Urine Bacteria (Auto) Negative (Negative) 02/21/23 16:52 02/21/23 16:52 Urine Culture - Final Urine,Clean Catch No growth - less than 1,000 colonies/mL. Electrocardiogram Date: 02/21/23 Normal sinus rhythm, rate 88 bpm Possible Left atrial enlargement Nonspecific T wave abnormality Abnormal ECG When compared with ECG of 21-OCT-2020 21:17, Inverted T waves have replaced nonspecific T wave abnormality in Anterior leads Confirmed by Haider Jacob ([id number]) on 02/22/2023 11:39:48 AM
[2023-02-24] MEDS ORDERED: BUPIVACAINE/EPINEPHRINE 0.25% 1:200,000 30 ML VIAL ONE (10:01)
[2023-02-24] MEDS ORDERED: HEPARIN (PORCINE) 1000 UNIT/ML 10 ML (CATH LAB USE ONLY) ONE (10:02)
[2023-02-24] MEDS ORDERED: LIDOCAINE 2% 2 ML VIAL/AMP(20MG/ML) INFIL ONE (10:08)
[2023-02-24] MEDS ORDERED: MIDAZOLAM HCL 1 MG/ML 2ML VIAL ONE (10:08)
[2023-02-24] MEDS ORDERED: PROPOFOL IV EMULSION 10 MG/ML 20 ML VIAL IV ONE (10:08)
[2023-02-24] MEDS ORDERED: fentaNYL citrate PF 100 MCG/2 ML VIAL ONE (10:08)
--- NOTE | 2023-02-24 10:17 | Surgery Progress Note ---
Date of Service February 24, 2023 Assessment & Plan (1) Cecum mass: Plan: Proceed with port placement today in the operating room Consent was obtained, risk discussed including bleeding, infection, new pneumothorax requiring chest tube placement (2) Peritoneal carcinomatosis: Admission and Anticipated Discharge Date Admission Date: February 21, 2023 Subjective Patient seen and examined. No acute events overnight. Review of Systems Constitutional: no fever and no chills Physical Exam Constitutional: WD/WN, vitals as above Neck: trachea midline, no thyromegaly Respiratory: normal respiratory effort, lungs clear to auscultation Cardiovascular: RRR, no murmur, no edema Gastrointestinal (Abdomen): normal bowel sounds, soft, nontender, no hepatosplenomegaly Results & Data Vital Signs (Past 12 Hours) Vital Signs Temp Pulse Resp BP Pulse Ox O2 Del Method 02/24/23 07:59 36.7 C 67 19 157/84 H 91 Room Air 02/24/23 03:25 36.6 C 91 H 18 146/84 H 94 Room Air 02/23/23 23:14 36.8 C 76 18 163/92 H 93 Room Air PG Care Time/CCT Total # of Minutes Spent Total Time Spent with Patient: Total time spent is greater than 50% in coordination of care (as documented) at patient's floor/unit and/or counseling patient: Coding Level of Care Code 18106 SUB INP/OBS CARE 08/06MIN Diagnoses Cecum mass K63.89 Peritoneal carcinomatosis C78.6
[2023-02-24] MEDS ORDERED: ONDANSETRON INJ 2 MG/ML 2 ML VIAL IV PRN (10:49)
[2023-02-24] MEDS ORDERED: fentaNYL citrate PF 100 MCG/2 ML VIAL IV PRN (10:49)
[2023-02-24] MEDS ORDERED: ePHEDrine sulfate 50 MG/ML AMP IV PRN (10:49)
[2023-02-24] MEDS ORDERED: ATROPINE SULFATE 0.1 MG/ML 10ML SYR IV PRN (10:49)
[2023-02-24] MEDS ORDERED: ceFAZolin 330 MG/ML 1 GM VIAL ONE (11:15)
--- NOTE | 2023-02-24 11:48 | Post Operative Brief Note ---
PG Immediate Post Op with CF Date of Surgery February 24, 2023 Pre & Post Diagnosis Operation Date: 02/24/23 07:00 Pre-Op Diagnosis: Cecum mass. Post-Op Diagnosis: Cecum mass. I identified the patient and participated in the time-out.: Yes Procedure Operation Date: 02/24/23 07:00 Actual Procedures p Access Port Insertion, Left Subclavian with fluoroscopy (Left) - Cristhian Rosen DO Surgeon Cristhian Rosen DO Order Dispatcher Chief Ben RAMSEY Estimated Blood Loss 5 Findings Consistent with Post-Op Diagnosis Specimens Specimen Description: none collected per surgeon Anesthesia Type MAC Complications none Disposition Disposition: Recovery Room
--- NOTE | 2023-02-24 11:50 | Operative Report ---
PG Post Operative Report Pre & Post Diagnosis Operation Date: 02/24/23 07:00 Pre-Op Diagnosis: Cecum mass. Post-Op Diagnosis: Cecum mass. I identified the patient and participated in the time-out.: Yes Procedure Operation Date: 02/24/23 07:00 Actual Procedures p Access Port Insertion, Left Subclavian with fluoroscopy (Left) - Cristhian Rosen DO Surgeon Cristhian Rosen DO Truck Driving Instructor Ben Francois LOCKSTITCH COAT JOINER Estimated Blood Loss 5 Findings Consistent with Post-Op Diagnosis Specimens None Drains Mediport Anesthesia Type MAC Complications none Disposition Disposition: Recovery Room Indications 62 yo male with cecal mass and carcinomatosis Description of Procedure Patient was brought to the operating room and placed in the supine position with both arms tucked. At this time MAC sedation was administered and the patients bilateral chest and neck were prepped and draped in the usual sterile fashion. A timeout was called, the procedure was verified as insertion of mediport. Appropriate pre-operative antibiotics were administered. Surgical, anesthesia and nursing teams agreed and the procedure was begun. The patient was placed in steep Trendelenburg position. The area of the left chest as well as the trajectory of the subclavian access point were anesthetized using 0.25% Marcaine with epinephrine. At this point the left subclavian vein was accessed without issue and non-pulsatile blood flow returned. Guide wire was introduced and fluoroscopy confirmed position. At this point using a #15 blade scalpel a transverse incision was made on the left chest and the port pocket was made using blunt dissection. The dilator-sheath complex was then introduced under direct fluoroscopy. The catheter was then tunneled from the incision to the needle stick point and introduced into the sheath. Adequate position was confirmed using fluoroscopy. The sheath was then removed while holding the catheter in place. The catheter was then attached onto the port. Port was accessed and blood return was noted. Port was then flushed using heparinized saline and placed in the pocket. Hemostasis was achieved using electrocautery and was complete. The incision was then closed using 3-0 Vicryl suture at the deep dermal level and 4-0 Monocryl in the skin in a running subcuticular fashion. Surgical glue was applied to the incision and stab incision. The patient was awakened from anesthesia having remained stable throughout the entire case and transported to PACU. Post-operative chest X-ray was ordered. The LOCKSTITCH COAT JOINER was present and scrubbed for the entire procedure. She was essential in positioning, prepping and draping the patient, retraction and exposure, closure of the incision and placement of the dressing. I attest to the content of the Intraoperative Record and any orders documented therein. Any exceptions are noted below.
--- NOTE | 2023-02-24 11:51 | Operative Report ---
PG Post Operative Report Pre & Post Diagnosis Operation Date: 02/24/23 07:00 Pre-Op Diagnosis: Cecum mass. Post-Op Diagnosis: Cecum mass. I identified the patient and participated in the time-out.: Yes Procedure Operation Date: 02/24/23 07:00 Actual Procedures p Access Port Insertion, Left Subclavian (Left) - Cristhian Rosen DO Surgeon Cristhian Rosen DO Train Operations Manager Ben RAMSEY Estimated Blood Loss 5 Findings Consistent with Post-Op Diagnosis Specimens None Anesthesia Type MAC Complications none Disposition Disposition: Recovery Room Indications 62 yo male with cecal mass and carcinomatosis Description of Procedure I personally used and interpreted the intra-operative fluoroscopy images which guided proper catheter placement during the procedure. I attest to the content of the Intraoperative Record and any orders documented therein. Any exceptions are noted below.
--- NOTE | 2023-02-24 12:30 | XRay Report ---
XR chest 1V portable HISTORY: post op mediport placement COMPARISON: Chest 10/21/2020. FINDINGS: Interval placement of a left subclavian Port-A-Cath with the tip terminating at the proxima l SVC. The tubing appears intact. No pneumothorax. The heart is normal in size. There are low lung vo lumes. Left basilar linear densities favor subsegmental atelectasis. Small linear density at the righ t midlung zone may also represent atelectasis. No evidence for edema. No acute fractures. IMPRESSION: The left subclavian Port-A-Cath terminates at the proximal SVC. No pneumothorax. ACT 112: Negative or not required by law. Electronically signed by: Darek Francois M.D. 02/24/2023 12:28 PM
--- NOTE | 2023-02-24 12:34 | Anesthesiology Progress Note ---
Date of Service February 24, 2023 Anesthesia Post Procedure Vital Signs Vital Signs: Temp Pulse Resp BP Pulse Ox O2 Del Method O2 Flow Rate 02/24/23 12:15 77 12 126/65 94 Oxymask 3 02/24/23 12:25 74 11 L 121/68 93 Nasal Cannula 2 02/24/23 12:05 74 12 111/67 96 Oxymask 5 02/24/23 11:58 96.8 F L 77 12 106/60 95 Oxymask 7 02/24/23 10:21 97.7 F 83 18 149/91 H 94 Room Air 02/24/23 07:59 98.1 F 67 19 157/84 H 91 Room Air 02/24/23 03:25 97.9 F 91 H 18 146/84 H 94 Room Air 02/23/23 23:14 98.2 F 76 18 163/92 H 93 Room Air 02/23/23 20:17 98.2 F 80 18 152/90 H 94 Room Air 02/23/23 18:56 98.1 F 77 16 164/92 H 92 Room Air 02/23/23 18:25 98.2 F 81 16 156/88 H 93 Room Air 02/23/23 17:59 97.9 F 83 16 154/85 H 94 Room Air 02/23/23 17:30 90 16 164/95 H 93 Room Air 02/23/23 17:00 83 16 164/81 H 95 Room Air 02/23/23 16:00 97.7 F 77 16 158/84 H 93 Room Air 02/23/23 16:30 82 16 163/88 H 94 Room Air 02/23/23 15:30 80 16 157/88 H 93 Room Air 02/23/23 15:00 83 16 163/95 H 94 Room Air Pain Intensity Lower Abdomen: Pain Intensity: 6 Transfer of Care Handoff Completed per policy Notes Mental Status: alert / awake / arousable and participated in evaluation Patient Amnestic to Procedure: Yes Nausea / Vomiting: adequately controlled Pain: adequately controlled Airway Patency, RR, SpO2: stable & adequate BP & HR: stable & adequate Hydration State: stable & adequate Anesthetic Complications: no major complications apparent and Pt Satisfied with anesthetic care
--- NOTE | 2023-02-24 13:20 | XCELERA ---
[id number]
[2023-02-24] MEDS ORDERED: RASBURICASE IV ONE (15:02)
[2023-02-24] MEDS ORDERED: SODIUM CHLORIDE 0.9% IV SCH (16:00)
[2023-02-24] MEDS ORDERED: RASBURICASE IV SCH (16:00)
--- NOTE | 2023-02-24 17:06 | Hematology/Oncology Prog Note ---
Date of Service February 24, 2023 Assessment & Plan (1) B-cell lymphoma: (2) Tumor lysis syndrome: (3) Cecum mass: (4) SBO (small bowel obstruction): Plan -Preliminary pathology consistent with B-cell lymphoma. Given aggressiveness of disease with small bowel obstruction, recommend inpatient chemotherapy consisting of cyclophosphamide 750mg/m2 day 1, doxorubicin 50 mg/m2 day 1, vincristine 2 mg day 1 given IV and prednisone 100 mg p.o. day 1-5. Plan to incorporate rituximab with or without polatuzumab with cycle 2 of treatment. He will require G-CSF with Neupogen 480 mcg daily x2 to 3 days which can be started 24 hours after chemotherapy. Discussed potential side effects of chemotherapy treatment with patient and his including but not limited to increased risk of infection, myelosuppression with potential need for PRBC/platelet transfusion, increased risk of infection, cardiotoxicity, nausea, vomiting, diarrhea, constipation, alopecia, peripheral neuropathy. Following our discussion he indicated that he would like to go ahead with treatment and informed consent was obtained. Would have to watch closely for signs of GI bleeding given proximity of mass to cecum -Regarding tumor lysis, would recommend giving rasburicase 4.5 mg IV today. Recheck uric acid on ice tomorrow. Continue with twice daily allopurinol. TLS labs daily Admission and Anticipated Discharge Date Admission Date: February 21, 2023 Subjective Preliminary core liver biopsy results showed B-cell lymphoma. Labs show elevated uric acid level, hyperphosphatemia, TABATHA suggestive of TLS Results & Data Vital Signs (Past 12 Hours) Vital Signs Temp Pulse Resp BP Pulse Ox O2 Del Method O2 Flow Rate 02/24/23 15:47 36.3 C L 78 19 122/76 91 Room Air 02/24/23 12:59 36.5 C 79 16 106/64 02/24/23 12:15 77 12 126/65 94 Oxymask 3 02/24/23 12:25 74 11 L 121/68 93 Nasal Cannula 2 02/24/23 12:05 74 12 111/67 96 Oxymask 5 02/24/23 11:58 36.0 C L 77 12 106/60 95 Oxymask 7 02/24/23 10:21 36.5 C 83 18 149/91 H 94 Room Air 02/24/23 07:59 36.7 C 67 19 157/84 H 91 Room Air
[2023-02-24] MEDS: allopurinoL 300 MG TAB PO SCH (20:31)
[2023-02-25] MEDS: LACTATED RINGER'S 1,000 ML IV SCH ×2 (04:35→18:21)
[2023-02-25 08:06] LABS: Hemoglobin 11.9 g/dl (14.0-18.0); Mean Corpuscular Hemoglobin 30.7 pg (25.0-34.0); Mean Corpuscular Volume 87.9 fL (80.0-100.0); Mean Platelet Volume 10.1 fL (9.4-12.4); Platelet Count 270 K/uL (130-400); RDW Coefficient of Variation 12.3 % (11.5-14.5); RDW Standard Deviation 39.6 fL (36.4-46.3); Red Blood Count 3.87 M/uL (4.70-6.10); White Blood Count 11.77 K/ul (4.8-10.8)
[2023-02-25 08:34] LABS: Albumin Globulin Ratio 1.4 (0.9-2); Albumin Level 3.4 gm/dl (3.4-5.0); BUN Creatinine Ratio 23.8 (10-20); Bilirubin,Total 0.4 mg/dl (0.2-1.0); Calcium 8.7 mg/dl (8.6-10.3); Creatinine Clr Calc Pharmacy 63.4 ml/min; Est GFR (African American) 73.2 ml/min; Est GFR (Non-African American) 63.1 ml/min; Globulin 2.4 gm/dl (2.5-4.0); Magnesium 1.7 mg/dl (1.7-2.4); Phosphorus 4.2 mg/dl (2.5-4.9); Potassium 3.9 mmol/L (3.5-5.1); Total Protein 5.8 gm/dl (6.0-8.3); Uric Acid 4.6 mg/dl (2.6-7.2)
--- NOTE | 2023-02-25 08:52 | Surgery Progress Note ---
Date of Service February 25, 2023 Assessment & Plan (1) B-cell lymphoma: Plan: Patient here w/ cecum mass, biopsy of peritoneal implants show prelim pathology of b-cell lymphoma He received a Port yesterday to start chemo. Incisions c/d/i. Port may be used as early as today if needed He is scheduled for bone marrow bx with IR today Pt is having BM's, would stay on a liquidy type diet as he tolerates while awaiting tumor to shrink Monitor for any signs of bowel obstruction (bloating/pain/nausea/vomiting) Hopefully with the start of chemo we will be able to avoid surgical intervention/colon resection He may follow up with us as an outpatient as above. doing ok. +bms. will still need to monitor for bowel obstruction/bleeding/perforation etc.... chemo starting today (2) Cecum mass: Admission and Anticipated Discharge Date Admission Date: February 21, 2023 Subjective Patient is doing well s/p port placement- no issues with surgical site. He is aware of prelim path report. Planning on starting possible chemo today. Reports + BMs since having a prep. Physical Exam Physical Exam: awake/alert, no distress Chest (Breasts): Additional Comments: port incision c/d/i, no signs of infection. + dermabond Results & Data Vital Signs (Past 12 Hours) Vital Signs Temp Pulse Resp BP Pulse Ox O2 Del Method 02/25/23 07:08 36.4 C L 67 16 147/78 H 94 Room Air 02/25/23 03:37 36.4 C L 74 18 143/75 H 92 Room Air 02/24/23 22:47 36.3 C L 73 18 122/70 95 Room Air PG Care Time/CCT Total # of Minutes Spent Total Time Spent with Patient: Total time spent is greater than 50% in coordination of care (as documented) at patient's floor/unit and/or counseling patient: Coding Level of Care Code 22442 SUB INP/OBS CARE 1/25MIN Diagnoses B-cell lymphoma C85.10 Cecum mass K63.89
[2023-02-25] MEDS: allopurinoL 300 MG TAB PO SCH ×2 (09:03→20:51)
[2023-02-25] MEDS: TAMSULOSIN HCL 0.4 MG CAP PO SCH (09:03)
[2023-02-25] MEDS: predniSONE 50 MG TAB PO SCH (09:38)
[2023-02-25] MEDS ORDERED: ACETAMINOPHEN 1000 MG/100 ML IV IV ONE (09:49)
[2023-02-25] MEDS ORDERED: PALONOSETRON 0.25 MG in SYRINGE 0 ML IV SCH (10:00)
[2023-02-25] MEDS ORDERED: FOSAPREPITANT DIMEGLUMINE 150 MG in SODIUM CHLORIDE 0.9% 145 ML IV SCH (10:00)
[2023-02-25] MEDS ORDERED: dexAMETHasone 12 MG in DEXTROSE 5% 25 ML IV SCH (10:00)
[2023-02-25] MEDS ORDERED: DOXORUBICIN HCL IV SCH (10:30)
[2023-02-25 10:41] LABS: Basophils # (auto) 0.01 K/uL (0-0.2); Basophils % (auto) 0.1 %; Eosinophils # (auto) 0.02 K/uL (0-0.50); Eosinophils % (auto) 0.2 %; Immature Granulocytes # (auto) 0.04 K/uL (0.01-0.20); Immature Granulocytes % (auto) 0.3 %; Lymphocytes % (auto) 3.4 %; Monocytes # (auto) 0.84 K/uL (0.11-0.59); Monocytes % (auto) 7.2 %; Neutrophils % (auto) 88.8 %
[2023-02-25] MEDS ORDERED: SODIUM CHLORIDE 0.9% IV SCH (11:30)
[2023-02-25] MEDS ORDERED: CYCLOPHOSPHAMIDE IV SCH (11:30)
[2023-02-25 12:21] LABS: Bone Marrow Smear SLHOLD; RBC Morphology Unremarkable
[2023-02-25] MEDS ORDERED: fentaNYL citrate PF 100 MCG/2 ML VIAL ONE (13:49)
--- NOTE | 2023-02-25 14:45 | CT Scan Report ---
CT guided bone marrow biopsy INDICATION: Lymphoma PROCEDURE: Procedure and risks were explained. Informed consent was obtained. A final timeout was com pleted. The patient was placed prone on the CT exam table. The left gluteal region was prepped and dr aped in sterile fashion. 1% buffered lidocaine was utilized for skin anesthesia. Patient received 1 g Tylenol IV. Utilizing CT guidance, an 11-gauge bone biopsy needle was advanced into the left iliac bone. Multiple aspirates and one bone core was obtained and given to the lab. The needle was removed and Band-Aid a pplied. The patient tolerated the procedure well. Vital signs will be monitored postprocedure. IMPRESSION: Bone marrow biopsy as above. Performed, dictated, and signed by Sachin Crawford PA-C; to be co-signed by Dr. Darek Francois. Electronically signed by: Darek Francois M.D. 02/25/2023 2:57 PM
[2023-02-26] MEDS: LACTATED RINGER'S 1,000 ML IV SCH ×3 (02:12→20:12)
--- NOTE | 2023-02-26 06:09 | Hospitalist Progress Note ---
Date of Service February 25, 2023 Assessment & Plan (1) Mass of colon: Plan: 62yo male presenting with approximately 1 month of abdominal pain, early satiety and unintentional weight loss. Unfortunately, CT with 8.4 x 7.6 cm soft tissue mass at the ileocecal valve involving the cecum and terminal ileum concerning for malignancy - lymphoma vs primary GI. Evidence of metastatic disease to include peritoneal carcinomatosis, hepatic masses, urothelial thickening within b/l ureters most pronounced on right, resulting in mild b/l hydronephrosis and possible osteoblastic focus of right medial pubic bone. Also with 2 subcentimeter indeterminate groundglass nodules of the lung. Mild dilatation of the distal ileum suggestive of a low-grade partial small bowel obstruction from the large cecal mass. Admit to medical Oncology consultation appreciated - imaging suggestive of colon ca w/ extensive metastases. Nephew from colon ca, ?genetic component, HOWEVER CEA not elevated, raising concerns for possibly Lymphoma -LDH elevated, noting prior elevated PSA to 11s in Jul 2022 as well General surgery, GI consulted IVF increased to 150cc/hr given elevated Cr/miralax for bowel prep, however further discussion w/ surgery and GI decided AGAINST resection and proceeded with IR bx liver lesion/[place] pathology Discussed path 02/[address] Guevara, appears to be Lymphoma (final path pending/further testing/stains in process) Given Dexamethasone 40mg IV x 1 02/[address] Guevara, started allopurinol 300mg daily (uric acid 13.8 resulted back at - notified heme/onc) Increased allopurinol to 300mg BID ordered rasburicase Remains on IVF @ 125cc/hr S/P PORT placement AM 02/[address] Rosen, and bone marrow biopsy with IR ECHO completed DVT proph: Lovenox SQ ordered on admission. Given his renal dysfunction will place further lovenox on hold, given Heparin SQ evening x 1 02/22 and holding further for port placement today. SCDs in meantime Started chemo on 02/25 (2) SBO (small bowel obstruction): Plan: Findings as above with concern for partial SBO secondary to obstructing mass. Patient with no nausea, minimal abdominal pain, no distention. He reports having a normal BM 02/20 Bowel prep overnight 02/22, +BM AM 02/23, again this morning 02/24 reported loose BM general surgery consulted, IVF as outlined, NPO for above. +BS on exam Resumed liquid diet on 02/25 (3) TABATHA (acute kidney injury): Plan: Elevation of BUN and Cr from baseline. Patient reports normal UOP. Patient received a dose of Ceftriaxone for possible UTI. No bacteria. No urinary complaints. No further abx at this time Urine na/cr obtained Cr improved w/ increased IVF but decreased back yesterday as given diet to 100cc/hr Uric acid elevated as above, concerning TLS. check phos, increase allopurinol as above and IVF to 125cc/hr for now No significant post-void residual, was ~70cc No further lovenox as above Renal dose meds/avoid nephrotoxins BMP in AM (4) Benign localized prostatic hyperplasia with lower urinary tract symptoms (LUTS): Plan: Chronic. Stable reported output. No significant PVR as above -Continue Flomax (5) Hypomagnesemia: Plan: checked w/ SBO -- low 1.5 today, IV replacement ordered and 2.1 on repeat labs (6) Cecum mass: Plan: as above, new -- IR bx of liver lesion as above, path concerning for lymphoma per discussion w/ heme/onc tx as outlined above, needing bone marrow biopsy, ECHO, port placement (for today) Treatment pending final path for tomorrow (7) Peritoneal carcinomatosis: Plan: concerning for metastatic disease. Source TBD, bx as above Plan NPO for port placement today, possible bone marrow biopsy (messaged Sergio Crawford from IR for discussion on timing for today) ECHO done this morning -- monitor read Increased allopurinol to BID, rasburicase as per Heme/onc Admission and Anticipated Discharge Date Admission Date: February 21, 2023 Subjective Patient reports tolerating his chemo. He has no new complaints today. Review of Systems Review of Systems: All systems reviewed & are unremarkable except as noted in HPI & below Physical Exam Physical Exam: General: WD/WN male sitting up in bed, NAD HEENT: head normocephalic Resp: on room air : no joseph MSK/Neuro: no focal deficits, Psych:AOX3, Results & Data Results & Data Vital Signs (Past 12 Hours) Vital Signs Temp Pulse Resp BP Pulse Ox O2 Del Method 02/25/23 21:36 36.3 C L 68 16 146/86 H 94 Room Air PG Care Time/CCT Total # of Minutes Spent Total Time Spent with Patient: Total time spent is greater than 50% in coordination of care (as documented) at patient's floor/unit and/or counseling patient: Coding Level of Care Code 96632 SUB INP/OBS CARE 2/35MIN Diagnoses Mass of colon K63.89 SBO (small bowel obstruction) K56.609 TABATHA (acute kidney injury) N17.9 Benign localized prostatic hyperplasia with lower urinary tract symptoms (LUTS) N40.1 Hypomagnesemia E83.42 Cecum mass K63.89 Peritoneal carcinomatosis C78.6
--- NOTE | 2023-02-26 08:25 | Surgery Progress Note ---
Date of Service February 26, 2023 Assessment & Plan (1) B-cell lymphoma: Plan: We will go ahead and advance him to a low residue diet. I recommend he be sent home on that. We will add Protonix for his heartburn. Was chemotherapy precautions there is really no reason for us to be an out of the room every day. We will continue to follow along from the periphery. Please call for any questions or concerns (2) Mass of colon: (3) GERD (gastroesophageal reflux disease): Admission and Anticipated Discharge Date Admission Date: February 21, 2023 Subjective Patient seen. Feeling well and tolerated first round of chemotherapy. He is tolerating full liquids. He has no nausea although he does have a little bit of heartburn Physical Exam Constitutional: WD/WN, vitals as above no acute distress and not ill appearing Eyes: PERRL, conjunctivae normal, anicteric sclerae EOM intact bilaterally ENMT: external ear and nose normal, oropharynx normal Ears: no hearing impairment Neck: trachea midline, no thyromegaly Respiratory: normal respiratory effort; no respiratory distress and does not use accessory muscles Cardiovascular: Rate/Rhythm: regular rate and regular rhythm Gastrointestinal (Abdomen): Soft. Nontender. Positive bowel sounds Skin: no rashes, warm and dry Psychiatric: Orientation: alert, oriented x 3 and cooperative Results & Data Vital Signs (Past 12 Hours) Vital Signs Temp Pulse Resp BP Pulse Ox O2 Del Method 02/26/23 07:32 36.3 C L 71 17 163/86 H 94 Room Air 02/25/23 21:36 36.3 C L 68 16 146/86 H 94 Room Air PG Care Time/CCT Total # of Minutes Spent Total Time Spent with Patient: Total time spent is greater than 50% in coordination of care (as documented) at patient's floor/unit and/or counseling patient: Coding Level of Care Code 58929 SUB INP/OBS CARE 2/35MIN Diagnoses B-cell lymphoma C85.10 Mass of colon K63.89 GERD (gastroesophageal reflux disease) K21.9
--- NOTE | 2023-02-26 09:04 | Hospitalist Progress Note ---
Date of Service February 26, 2023 Assessment & Plan (1) Mass of colon: Plan: 62yo male presenting with approximately 1 month of abdominal pain, early satiety and unintentional weight loss. Unfortunately, CT with 8.4 x 7.6 cm soft tissue mass at the ileocecal valve involving the cecum and terminal ileum concerning for malignancy - lymphoma vs primary GI. Evidence of metastatic disease to include peritoneal carcinomatosis, hepatic masses, urothelial thickening within b/l ureters most pronounced on right, resulting in mild b/l hydronephrosis and possible osteoblastic focus of right medial pubic bone. Also with 2 subcentimeter indeterminate groundglass nodules of the lung. Mild dilatation of the distal ileum suggestive of a low-grade partial small bowel obstruction from the large cecal mass. Oncology consultation appreciated - imaging suggestive of colon ca w/ extensive metastases. Nephew from colon ca, ?genetic component, HOWEVER CEA not elevated, raising concerns for possibly Lymphoma -LDH elevated, noting prior elevated PSA to 11s in Jul 2022 as well General surgery, GI consulted discussion w/ GI decided AGAINST resection and proceeded with IR bx liver lesion/[place] pathology 02/[address] Guevara, appears to be Lymphoma (final path pending/further testing/stains in process) Given Dexamethasone 40mg IV x 1 02/[address] Guevara, started allopurinol 300mg daily (uric acid 13.8 resulted back at - notified heme/onc) Increased allopurinol to 300mg BID ordered rasburicase for tumor lysis recommended neupogen start 24 hours after chemo and given daily for 2-3 days S/P PORT placement AM 02/[address] Rosen, and bone marrow biopsy with IR ECHO completed DVT proph: Heparin SQ due to renal dysfunction Started chemo on 02/25 (2) SBO (small bowel obstruction): Plan: Findings as above with concern for partial SBO secondary to obstructing mass. Patient with no nausea, minimal abdominal pain, no distention. not with clinical signs of sbo Resumed liquid diet on 02/25, advanced to low residual 02/26 (3) TABATHA (acute kidney injury): Plan: Elevation of BUN and Cr from baseline. now resolved Patient reports normal UOP. Uric acid check now controlled Renal dose meds/avoid nephrotoxins (4) Cecum mass: Plan: as above, new -- IR bx of liver lesion as above, path concerning for lymphoma per discussion w/ heme/onc tx as outlined above, bone marrow biopsy, port placement (for today) (5) Peritoneal carcinomatosis: Plan: concerning for metastatic disease. Source TBD, bx as above, prelim path appears to be lymphoma (6) Benign localized prostatic hyperplasia with lower urinary tract symptoms (LUTS): Plan: Chronic. Stable reported output. No significant PVR as above -Continue Flomax (7) Hypomagnesemia: Plan: replete Plan s/p port placement ECHO preserved EF , no RWMA, borderline LVH Increased allopurinol to BID, rasburicase as per Heme/onc Admission and Anticipated Discharge Date Admission Date: February 21, 2023 Subjective patient is in good spirits she is allowed some oral intake by general surgery requesting a low residual diet. Still with occasional fleeting abdominal/back pain. is present and updated at bedside Physical Exam Physical Exam: patient is awake and alert cardiac exam is regular lungs are clear abdomen is with NABS soft no focal areas of tenderness Results & Data Results & Data Vital Signs (Past 12 Hours) Vital Signs Temp Pulse Resp BP Pulse Ox O2 Del Method 02/26/23 07:32 97.3 F L 71 17 163/86 H 94 Room Air 02/25/23 21:36 97.3 F L 68 16 146/86 H 94 Room Air Laboratory Results reviewed CBC reviewed chemistry reviewed uric acid PG Care Time/CCT Total # of Minutes Spent Total Time Spent with Patient: Total time spent is greater than 50% in coordination of care (as documented) at patient's floor/unit and/or counseling patient: Coding Level of Care Code 50520 SUB INP/OBS CARE 3/50MIN Diagnoses Mass of colon K63.89 SBO (small bowel obstruction) K56.609 TABATHA (acute kidney injury) N17.9 Cecum mass K63.89 Peritoneal carcinomatosis C78.6 Benign localized prostatic hyperplasia with lower urinary tract symptoms (LUTS) N40.1 Hypomagnesemia E83.42
[2023-02-26] MEDS: predniSONE 50 MG TAB PO SCH (09:11)
[2023-02-26] MEDS: TAMSULOSIN HCL 0.4 MG CAP PO SCH (09:11)
[2023-02-26] MEDS: allopurinoL 300 MG TAB PO SCH ×2 (09:11→20:15)
[2023-02-26] MEDS: PANTOprazole 40 MG TAB PO SCH (09:17)
[2023-02-26 09:18] LABS: Basophils # (auto) 0.01 K/uL (0-0.2); Basophils % (auto) 0.1 %; Hematocrit (blood only) 38.4 % (42.0-52.0); Hemoglobin 13.4 g/dl (14.0-18.0); Immature Granulocytes # (auto) 0.07 K/uL (0.01-0.20); Immature Granulocytes % (auto) 0.8 %; Lymphocytes # (auto) 0.33 K/uL (1.2-3.4); Lymphocytes % (auto) 3.6 %; Mean Corpuscular Hemoglobin 30.8 pg (25.0-34.0); Mean Corpuscular Hgb Conc 34.9 g/dL (32.0-36.0); Mean Corpuscular Volume 88.3 fL (80.0-100.0); Mean Platelet Volume 9.5 fL (9.4-12.4); Monocytes # (auto) 0.55 K/uL (0.11-0.59); Monocytes % (auto) 5.9 %; Neutrophils # (auto) 8.29 K/uL (1.40-6.50); Neutrophils % (auto) 89.6 %; Platelet Count 264 K/uL (130-400); RDW Coefficient of Variation 12.2 % (11.5-14.5); RDW Standard Deviation 39.3 fL (36.4-46.3); Red Blood Count 4.35 M/uL (4.70-6.10); White Blood Count 9.25 K/ul (4.8-10.8)
[2023-02-26 09:47] LABS: Albumin Level 3.7 gm/dl (3.4-5.0); Bilirubin,Total 0.6 mg/dl (0.2-1.0); Calcium 8.6 mg/dl (8.6-10.3); Potassium 3.6 mmol/L (3.5-5.1)
[2023-02-26 09:53] LABS: Albumin Globulin Ratio 1.4 (0.9-2); BUN Creatinine Ratio 23.5 (10-20); Est GFR (African American) 95.4 ml/min; Est GFR (Non-African American) 82.3 ml/min; Globulin 2.6 gm/dl (2.5-4.0); Total Protein 6.3 gm/dl (6.0-8.3); Uric Acid 1.6 mg/dl (2.6-7.2)
[2023-02-26] MEDS: FILGRASTIM 480 MCG/1.6 ML VIAL SQ SCH (11:22)
--- NOTE | 2023-02-26 16:15 | Hematology/Oncology Prog Note ---
Date of Service February 26, 2023 Assessment & Plan (1) B-cell lymphoma: (2) Tumor lysis syndrome: (3) SBO (small bowel obstruction): Plan -Currently cycle 1, day 3 of CHOP chemotherapy. Doing well and has had no side effects from treatment. TLS has resolved with normal uric acid, phosphorus, kidney function and potassium. Also no evidence of bleeding/obstruction from cecal mass. -He is s/p 2 doses of Neupogen.Plan to give third dose of Neupogen tomorrow. If clinically stable, he can be discharged home tomorrow or Thursday -If he is discharged home tomorrow, he will require a prescription for 1 more day of prednisone 100 mg p.o. -Continue with allopurinol 300 mg twice daily. Plan to schedule him for follow-up with me upon discharge from hospital Admission and Anticipated Discharge Date Admission Date: February 21, 2023 Subjective Received cycle 1 of CHOP chemotherapy on 02/24/2023. Doing well overall. No nausea, vomiting or hematochezia Results & Data Vital Signs (Past 12 Hours) Vital Signs Temp Pulse Resp BP Pulse Ox O2 Del Method 02/26/23 14:19 36.3 C L 70 17 129/73 95 Room Air 02/26/23 07:32 36.3 C L 71 17 163/86 H 94 Room Air
[2023-02-27] MEDS: LACTATED RINGER'S 1,000 ML IV SCH ×3 (03:52→19:36)
[2023-02-27] MEDS: allopurinoL 300 MG TAB PO SCH ×2 (09:06→21:17)
[2023-02-27] MEDS: PANTOprazole 40 MG TAB PO SCH (09:06)
[2023-02-27] MEDS: TAMSULOSIN HCL 0.4 MG CAP PO SCH (09:06)
[2023-02-27] MEDS: predniSONE 50 MG TAB PO SCH (09:06)
[2023-02-27] MEDS: FILGRASTIM 480 MCG/1.6 ML VIAL SQ SCH (10:52)
[2023-02-27] MEDS: ONDANSETRON INJ 2 MG/ML 2 ML VIAL IV PRN (12:10)
--- NOTE | 2023-02-27 18:07 | Hospitalist Progress Note ---
Date of Service February 27, 2023 Assessment & Plan (1) Mass of colon: Plan: 62yo male presenting with approximately 1 month of abdominal pain, early satiety and unintentional weight loss. Unfortunately, CT with 8.4 x 7.6 cm soft tissue mass at the ileocecal valve involving the cecum and terminal ileum concerning for malignancy - lymphoma vs primary GI. Evidence of metastatic disease to include peritoneal carcinomatosis, hepatic masses, urothelial thickening within b/l ureters most pronounced on right, resulting in mild b/l hydronephrosis and possible osteoblastic focus of right medial pubic bone. Also with 2 subcentimeter indeterminate groundglass nodules of the lung. Mild dilatation of the distal ileum suggestive of a low-grade partial small bowel obstruction from the large cecal mass. 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 General surgery, GI consulted discussion w/ GI decided AGAINST resection and proceeded with IR bx liver lesion/[place] pathology 02/[address] uGevara, appears to be Lymphoma (final path pending/further testing/stains in process) G Dr Guevara, started high dose prednisone, allopurinol 300mg daily (uric acid 13.8 resulted back at - notified heme/onc) Increased allopurinol to 300mg BID ordered rasburicase for tumor lysis recommended neupogen start 24 hours after chemo and given daily for 2-3 days S/P PORT placement AM 02/[address] Rosen, and bone marrow biopsy with IR ECHO preserved EF , no RWMA, borderline LVH DVT proph: Heparin SQ due to renal dysfunction Started chemo on 02/24 CHOP (2) SBO (small bowel obstruction): Plan: Findings as above with concern for partial SBO secondary to obstructing mass. Patient with no nausea, minimal abdominal pain, no distention. not with clinical signs of sbo Resumed liquid diet on 02/25, advanced to low residual 02/26 (3) TABATHA (acute kidney injury): Plan: Elevation of BUN and Cr from baseline. now resolved Patient reports normal UOP. Uric acid check now controlled Renal dose meds/avoid nephrotoxins (4) Cecum mass: Plan: as above, new -- IR bx of liver lesion as above, path concerning for lymphoma per discussion w/ heme/onc tx as outlined above, bone marrow biopsy, port placement (for today) (5) Peritoneal carcinomatosis: Plan: concerning for metastatic disease. Source TBD, bx as above, prelim path appears to be lymphoma (6) Benign localized prostatic hyperplasia with lower urinary tract symptoms (LUTS): Plan: Chronic. Stable reported output. No significant PVR as above -Continue Flomax (7) Hypomagnesemia: Plan: replete Plan s/p port placement Increased allopurinol to BID, rasburicase as per Heme/onc Admission and Anticipated Discharge Date Admission Date: February 21, 2023 Subjective Received cycle 1 of [facility] chemotherapy on 02/24/2023. is having some nausea and brewster with ambulation in [place] Physical Exam Physical Exam: patient is awake and alert cardiac exam is regular lungs are clear abdomen is with NABS soft no focal areas of tenderness Results & Data Results & Data Vital Signs (Past 12 Hours) Vital Signs Temp Pulse Resp BP Pulse Ox O2 Del Method 02/27/23 15:37 97.5 F L 71 18 127/77 92 Room Air 02/27/23 07:12 97.5 F L 79 18 157/80 H 94 Room Air PG Care Time/CCT Total # of Minutes Spent Total Time Spent with Patient: Total time spent is greater than 50% in coordination of care (as documented) at patient's floor/unit and/or counseling patient: Coding Level of Care Code 59298 SUB INP/OBS CARE 2/35MIN Diagnoses Mass of colon K63.89 SBO (small bowel obstruction) K56.609 TABATHA (acute kidney injury) N17.9 Cecum mass K63.89 Peritoneal carcinomatosis C78.6 Benign localized prostatic hyperplasia with lower urinary tract symptoms (LUTS) N40.1 Hypomagnesemia E83.42
[2023-02-28] MEDS: LACTATED RINGER'S 1,000 ML IV SCH (03:20)
[2023-02-28] MEDS: TAMSULOSIN HCL 0.4 MG CAP PO SCH (09:23)
[2023-02-28] MEDS: PANTOprazole 40 MG TAB PO SCH (09:23)
[2023-02-28] MEDS: allopurinoL 300 MG TAB PO SCH (09:23)
[2023-02-28] MEDS: predniSONE 50 MG TAB PO SCH (09:23)
[2023-02-28] MEDS: FILGRASTIM 480 MCG/1.6 ML VIAL SQ SCH (09:24)
--- NOTE | 2023-02-28 17:29 | Discharge Summary ---
Date of Service February 28, 2023 Admission HPI Per Admitting Provider Aleksander Hansen is a 62yo male with history of BPH presenting with abdominal pain, early satiety and unintentional weight loss. Mr. Hansen has known BPH with LUTS. He was found to have an elevated PSA of 11 during routine checkup. He was started on Flomax with improvement in BPH symptoms. He had an MRI on 09/12/22 which revealed a prostate lesion which was equivocal for malignancy. Patient had a prostate biopsy performed on 01/12/23 which was NEGATIVE for malignancy - chronic prostatitis thought to be reason for PSA elevation. Patient was prescribed Doxycycline BID and tolerated medication for a week. After the prostate biopsy he developed nausea, vomiting, diarrhea as well as back pain and diffuse abdominal pain. These symptoms largely resolved after 3 days but he continues to have abdominal bloating, decreased appetite and early satiety as well as worsening GERD symptoms. He reports persistent fatigue and decreased exercise tolerance as well as an 18# unintentional weight loss in the last month. Patient denies fever or chills. Denies melena/hematochezia. Patient performed a Cologuard in July which was reported to be NORMAL. In the ER he is afebrile, hypertensive otherwise HD stable. CT as below concerning for new malignant process. ER Course: Lovenox 40mg Ceftriaxone 2gm NSS x 2L Protonix 40mg IV Pepcid 20mg IV Principal Diagnosis partial small bowel obstruction secondary to cecal mass found to be Lymphoma s/p treatment with 1 cycle of CHOP Discharge Exam awake and alert all symptoms resolved Discharge Data Allergies Allergy/AdvReac Type Severity Reaction Status Date / Time No Known Allergies Allergy Verified 02/21/23 19:39 Consultations 02/21/23 20:35 ED Decision to Admit Stat 02/21/23 22:32 Consult Gastroenterology Routine Consult General Surgery Routine Consult Oncology Routine Procedures Performed Operation Date: 02/24/23 07:00 Actual Procedures p Access Port Insertion, Left Subclavian(Left) - Cristhian Rosen, Ordered Studies 02/21/23 16:40 CT abd pelvis IV con only Stat CT chest diagnostic w con Stat US scrotum/testicle Stat 02/23/23 09:15 IR biopsy liver US Urgent 02/24/23 11:10 FL fluoro (infusaport) to 1 hr Routine 02/25/23 10:00 IR bone marrow bx & asp Routine Hospital Course (1) Mass of colon: 62yo male presenting with approximately 1 month of abdominal pain, early satiety and unintentional weight loss. Unfortunately, CT with 8.4 x 7.6 cm soft tissue mass at the ileocecal valve involving the cecum and terminal ileum concerning for malignancy - lymphoma vs primary GI. Evidence of metastatic disease to include peritoneal carcinomatosis, hepatic masses, urothelial thickening within b/l ureters most p ronounced on right, resulting in mild b/l hydronephrosis and possible osteoblastic focus of right medial pubic bone. Also with 2 subcentimeter indete rminate groundglass nodules of the lung. Mild dilatation of the distal ileum suggestive of a low-grade partial small bowel obstruction from the large cecal mass. 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 General surgery, GI consulted discussion w/ GI decided AGAINST resection and proceeded with IR bx liver lesion/pioneer pathology 02/[address] Guevara, appears to be Lymphoma (final path pending/further testing/stains in process) G Dr Guevara, started high dose prednisone, allopurinol 300mg daily (uric acid 13.8 resulted back at - notified heme/onc) Increased allopurinol to 300mg BID ordered rasburicase for tumor lysis recommended neupogen start 24 hours after chemo and given daily for 2-3 days, completed 3 doses S/P PORT placement AM 02/[address] Rosen, and bone marrow biopsy with IR ECHO preserved EF , no RWMA, borderline LVH chemo on 02/24 CHOP (2) SBO (small bowel obstruction): Findings as above with concern for partial SBO secondary to obstructing mass. Patient with no nausea, minimal abdominal pain, no distention. not with cli nical signs of sbo Resumed liquid diet on 02/25, tolerating advanced to low residual 02/26 (3) TABATHA (acute kidney injury): Elevation of BUN and Cr from baseline. now resolved Patient reports normal UOP. 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 Source TBD, bx as above, prelim path appears to be lymphoma (6) Benign localized prostatic hyperplasia with lower urinary tract symptoms (LUTS): Chronic. Stable reported output. No significant PVR as above -Continue Flomax (7) Hypomagnesemia: Plan s/p port placement Increased allopurinol to BID, rasburicase Total Time Total Time Spent Total Time Spent (In Minutes): greater than 30 minutes to create this discharge Discharge Plan Discharge Items Patient Disposition: Home - Self-Care Reason For Visit: POSSIBLE METASTATIC MALIGNANCY Discharge Diagnosis: lymphoma Condition on Discharge: Good Activity: Per Instructions section Activity Comment: rest and recover Non-emergency contact: Primary Care Provider and Specialist Call non-emergency contact if: your symptoms worsen Follow-up/Referrals: Sachin Recio DO [Surgeon] - Sloane Guevara MD [Physician] - 03/12/23 3:30 pm (Please arrive 10 minutes prior to appointment time.) Moriah Nolen CRNP [Primary Care Provider] - Diet: Regular Addtl Attending Provider Instructions: Continue Low fiber diet on discharge 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[employer] Provider Instructions: General guidelines for when to call your doctor after you have recieved chemotherapy * Any side effect that lasts more than 1 day * A fever of 100.4F or higher, taken by mouth * Bleeding * Pain or redness at the IV site where the chemo was given * Inability to swallow or keep down liquids or your medication Pending Studies at Discharge: No Stand-Alone Forms: [facility] [employer], Smoking Cessation Medications and DC Order Prescriptions: New allopurinol 300 mg Tablet 300 mg PO BID Qty: 60 2RF Continued tamsulosin 0.4 mg capsule 0.4 mg PO DAILY Qty: 30 11RF ondansetron 4 mg tablet,disintegrating 4 mg PO Q6H PRN (Reason: Nausea) Qty: 20 0RF Discontinued doxycycline hyclate 100 mg tablet 100 mg PO BID Qty: 30 0RF Discharge Orders: Discharge Order (Routine); Ordered 02/28/23 Ordered By: Zelalem Francis/Other Patient Handouts: Low-Fiber Diet Admission Data Admit Date/Time: 02/21/23 21:12 Attending Provider: Zelalem Reese Admit Provider: Aurora Manzanares Primary Care Provider: Moriah Nolen Other Providers: Eder Epstein ; Aurora Manzanares ; Kasandra Laura ; Sachin Recio ; Sloane Guevara Other Interventions: Discharge Summary Assessment (RN) Last Done: 02/28/23 11:54 Coding Level of Care Code 04818 INP/OBS DISCH >30 MIN Diagnoses Mass of colon K63.89 SBO (small bowel obstruction) K56.609 TABATHA (acute kidney injury) N17.9 Cecum mass K63.89 Peritoneal carcinomatosis C78.6 Benign localized prostatic hyperplasia with lower urinary tract symptoms (LUTS) N40.1 Hypomagnesemia E83.42
== END 2023-02-28 15:26 | disposition home or self-care (01) | DRG 840 ==
LOC: ED 16:06 → 3N 21:12 → SUATTDRO 21:12 → 3N 21:54